=== PATIENT | female | born 1930 | race Caucasian/White ===

== ENCOUNTER 2016-05-29 15:32 | Emergency (ER) | payer MEDICARE ==
[~2016-05-29] VITALS: Ht 157.5 cm; Wt 52.3 kg
[~2016-05-29 15:32] MED LIST: ACET325S8 PO; AMLO2.5T PO
[2016-05-29 16:10] VITALS: BP 178/89; PULSE 59; PULSE 62; RESP 16; RESP 18; TEMP 98.3; O2SAT 98; O2SAT 99
[2016-05-29] MEDS ORDERED: TETANUS/DIPHTHERIA TOXOID ADULT 0.5 ML VIAL IM ONE (16:30)
[2016-05-29] MEDS ORDERED: LIDOCAINE 1%/EPINEPHrine 1:100,000 SOLN 20 ML VIAL INFIL ONE (16:30)
--- NOTE | 2016-05-29 16:31 | PD ---
HPI Chief Complaint: laceration Time Seen by Provider: 16:20 Travel History International Travel<30 days: No Contact w/Intl Traveler<30days: No Traveled to known affect area: No History of Present Illness HPI 86-year-old female presents via EMS for evaluation of skin wounds. She reports that prior to arrival she was standing outside of her home all a window was being installed in the window fell out of the window pane and landed on her. She sustained a tissue avulsion/skin tear in the lateral left ankle as well as a superficial abrasion to the left proximal leg. These are both painful. She also has mild pain to the right knee. Symptoms are aggravated by movement or palpation. Denies any head injury. Denies any pain in the torso, head or neck. No other complaints. Last tetanus vaccination unknown. PFSH Past Medical History AAA: Yes Arthritis: Yes Asthma: Yes Blood Disorders: No Heart Rhythm Problems: Yes ("My heart skips a beat sometimes") Cancer: No Cardiovascular Problems: Yes High Cholesterol: Yes Chest Pain: No Congestive Heart Failure: No Cerebrovascular Accident: Yes (TIA) Diminished Hearing: No Endocrine: No Gastrointestinal Disorders: No Genitourinary: No Headaches: No Hypertension: Yes Immune Disorder: No Musculoskeletal: No Neurologic: No Psychiatric: No Reproductive: No Respiratory: Yes (ASTHMA) Immunizations Current: No Migraines: No Seizures: No Menopausal: Yes : 8 Para: 6 Miscarriage: 2 Past Surgical History Abdominal Surgery: Yes Appendectomy: Yes Eye Surgery: Yes (Cataracts) Gynecologic Surgery: Yes (HYSTERECTOMY) Hysterectomy: Yes Joint Replacement: Yes ((L) hip replacement) Neurologic Surgery: No Other Surgery: Yes (hysterectomy, appendectomy, left hip replacement) Social History Alcohol Use: No Tobacco Use: Yes (2-3 cigarettes/day) Substance Use: No Allergies-Medications (Allergen,Severity, Reaction): Coded Allergies: Codeine (Verified Adverse Reaction, Severe, "Makes me want to climb the g[place]", 05/29/16) Reported Meds & Prescriptions Reported Meds & Active Scripts Active Amlodipine Besylate 2.5 mg (Amlodipine Besylate) 2.5 Mg Tab 1 Tab PO DAILY Acetaminophen 325 Mg Tab 650 Mg PO Q6HR PRN Review of Systems Except as stated in HPI: all other systems reviewed are Neg Physical Exam Narrative GENERAL: Well-developed well-nourished female in no acute distress SKIN: Warm and dry. Large full-thickness laceration, U-shaped, the lateral left ankle. Tendons are visible but there is no tendon damage. There is no bleeding currently. There is a superficial abrasion to the lateral left arm. HEAD: Atraumatic. Normocephalic. EYES: Pupils equal and round. No scleral icterus. No injection or drainage. ENT: No nasal bleeding or discharge. Mucous membranes pink and moist. NECK: Trachea midline. No JVD. CARDIOVASCULAR: Regular rate and rhythm. No murmur appreciated. RESPIRATORY: No accessory muscle use. Clear to auscultation. Breath sounds equal bilaterally. GASTROINTESTINAL: Abdomen soft, non-tender, nondistended. MUSCULOSKELETAL: No obvious deformities. Skin as noted above. Mild tenderness to palpation to the left ankle, left arm and right knee. NEUROLOGICAL: Awake and alert. No obvious cranial nerve deficits. Motor grossly within normal limits. Normal speech. Data Data Last Documented VS Vital Signs Date Time Temp Pulse Resp B/P Pulse Ox O2 Delivery O2 Flow Rate FiO2 05/29/16 16:10 62 18 97 Room Air 05/29/16 16:10 98.3 178/89 Orders Ankle, Complete ([id number]) (05/29/16 ) Knee, Complete (4vws) (05/29/16 ) Humerus (Min 2vws) (05/29/16 ) Lidocai-Epi 1%-1:100,000 Inj (Xylocaine- (05/29/16 16:30) Tetanus/Diphtheria Tox Adult (Tetanus/Di (05/29/16 16:30) Cefazolin Inj (Ancef Inj) (05/29/16 18:15) MDM Medical Decision Making Medical Screen Exam Complete: Yes Emergency Medical Condition: Yes Medical Record Reviewed: Yes Differential Diagnosis Laceration, open fracture, tissue avulsion Narrative Course X-ray imaging was negative and the large laceration on the left leg was repaired with sutures. Initially attempted to approximate the wound with Steri- Strips however this was unsuccessful. The wound was closed with sutures. Ancef administered. Local wound care and Dejuan wrap were applied. The patient will be referred for outpatient follow-up with the wound care clinic. Recommended wound recheck in 2 days. She is stable for discharge. Diagnosis Primary Impression: Laceration of left leg Qualified Code: S81.812A - Laceration of left leg, initial encounter Referrals: [facility] Additional Instructions: Follow-up with the wound center in 2 days for wound recheck. Antibiotics as prescribed. Return for any emergent medical conditions. Med/Other Pt SpecificInfo: Prescription(s) given, Wound Care Scripts Cephalexin (Keflex)500 Mg Ijo448 Mg PO Q8H 5 Days Ref 0 Prov:Cristobal Pickens MD 05/29/16 Disposition: 01 DISCHARGE HOME Condition: Stable Natanael Barton May 29, 2016 16:31
--- NOTE | 2016-05-29 17:27 | RADRPT ---
EXAM DATE/TIME: 05/29/2016 16:54 [facility] COMPARISON: No previous studies available for comparison. INDICATIONS : Patient states left arm pain after window fell on her. MEDICAL HISTORY : None. SURGICAL HISTORY : None. ENCOUNTER: Initial ACUITY: 1 day PAIN SCORE: 3/10 LOCATION: Left upper arm FINDINGS: Two view examination of the left humerus demonstrates no evidence of fracture or dislocation. The bon es are osteopenic. The soft tissue structures are intact. CONCLUSION: No acute disease. Davey De La Rosa MD on May 29, 2016 at 17:26 Board Certified Radiologist. This report was verified electronically.
--- NOTE | 2016-05-29 17:27 | RADRPT ---
EXAM DATE/TIME: 05/29/2016 16:48 [facility] COMPARISON: No previous studies available for comparison. FINDINGS: Three view exam was performed of the left ankle. The bony structures are in normal alignment. No ev idence of fracture, dislocation, or soft tissue swelling. The ankle mortise is intact. No radiopaqu e foreign bodies are seen. The bones are osteopenic. CONCLUSION: No acute disease. Davey De La Rosa MD on May 29, 2016 at 17:25 Board Certified Radiologist. This report was verified electronically.
--- NOTE | 2016-05-29 17:28 | RADRPT ---
EXAM DATE/TIME: 05/29/2016 16:57 [facility] COMPARISON: No previous studies available for comparison. INDICATIONS : Patient states right knee pain after window fell on her. MEDICAL HISTORY : None. SURGICAL HISTORY : None. ENCOUNTER: Initial ACUITY: 1 day PAIN SCORE: 7/10 LOCATION: Right knee FINDINGS: Four view examination of the right knee demonstrates no evidence of fracture or dislocation. The bone s are osteopenic. There is chondrocalcinosis seen at the medial joint space. The articular surfaces a re intact. The suprapatellar soft tissues have a normal configuration. CONCLUSION: No acute abnormality is seen. Davey De La Rosa MD on May 29, 2016 at 17:26 Board Certified Radiologist. This report was verified electronically.
[2016-05-29] MEDS ORDERED: CEPH-460 PO (18:13)
== END 2016-05-29 20:31 | disposition home or self-care (01) ==
LOC: NEPB 15:32 → NEDAMB 20:31
DX: S91.012A Laceration without foreign body, left ankle, initial encounter (principal); S40.812A Abrasion of left upper arm, initial encounter; M25.561 Pain in right knee; I10 Essential (primary) hypertension; E78.00 Pure hypercholesterolemia, unspecified; Z23 Encounter for immunization; Z72.0 Tobacco use; Z86.79 Personal history of other diseases of the circulatory system; Z87.39 Personal history of other diseases of the musculoskeletal system and connective tissue; Z87.09 Personal history of other diseases of the respiratory system; W22.8XXA Striking against or struck by other objects, initial encounter
CPT/HCPCS: 12004; 73060; 73564; 73610; 90471; 90714; 96372; 99283; J0690

== ENCOUNTER 2016-06-03 18:50 | Emergency (ER) | payer MEDICARE ==
[~2016-06-03 18:50] MED LIST changes: +CEPH-460 PO
[2016-06-03 18:53] VITALS: BP 180/71; PULSE 80; RESP 16; TEMP 97.7; O2SAT 98
--- NOTE | 2016-06-03 20:59 | PD ---
HPI Chief Complaint: Wound/Suture/Staple Re-Check Time Seen by Provider: 20:56 Travel History International Travel<30 days: No Contact w/Intl Traveler<30days: No Traveled to known affect area: No History of Present Illness HPI 86-year-old white female presents to emergency department for recheck of a left lower leg laceration. She states that she had called the wound care center but was told that they would not follow her up and advised her to come to the ER. The patient has no complaints at this time. She denies any fever or chills. Pain is mild. PFSH Past Medical History AAA: Yes Arthritis: Yes Asthma: Yes Blood Disorders: No Heart Rhythm Problems: Yes ("My heart skips a beat sometimes") Cancer: No Cardiovascular Problems: Yes (HTN, AAA) High Cholesterol: Yes Chest Pain: No Congestive Heart Failure: No Cerebrovascular Accident: Yes (TIA) Diminished Hearing: No Endocrine: No Gastrointestinal Disorders: No Genitourinary: No Headaches: No Hypertension: Yes Immune Disorder: No Musculoskeletal: No Neurologic: No Psychiatric: No Reproductive: No Respiratory: Yes (ASTHMA) Immunizations Current: No Migraines: No Seizures: No Menopausal: Yes : 8 Para: 6 Miscarriage: 2 Past Surgical History Abdominal Surgery: Yes Appendectomy: Yes Eye Surgery: Yes (Cataracts) Gynecologic Surgery: Yes (HYSTERECTOMY) Hysterectomy: Yes (FULL) Joint Replacement: Yes ((L) hip replacement) Neurologic Surgery: No Other Surgery: Yes (hysterectomy, appendectomy, left hip replacement) Social History Alcohol Use: No Tobacco Use: Yes (2-3 cigarettes/day) Substance Use: No Allergies-Medications (Allergen,Severity, Reaction): Coded Allergies: Codeine (Verified Adverse Reaction, Severe, "Makes me want to climb the [place]", 06/03/16) Reported Meds & Prescriptions Reported Meds & Active Scripts Active Keflex (Cephalexin) 500 Mg Cap 500 Mg PO Q8H 5 Days Amlodipine Besylate 2.5 mg (Amlodipine Besylate) 2.5 Mg Tab 1 Tab PO DAILY Tylenol (Acetaminophen) 325 Mg Tab 650 Mg PO Q6HR PRN Review of Systems Except as stated in HPI: all other systems reviewed are Neg Physical Exam Narrative GENERAL: This is a well-nourished, well-developed patient, in no apparent distress. SKIN: No rashes, ecchymoses or lesions. Warm and dry. HEAD: Atraumatic. Normocephalic. EYES: PERRL, EOMI, no discharge or injection. No scleral icterus. EARS: Clear NOSE: Nasal turbinates appear normal. THROAT: Mucosa pink and moist. Airway patent. NECK: Trachea midline. supple, moves head freely. LUNGS: Clear to auscultation. CV: Regular in rhythm. ABDOMEN: Soft nontender. EXT: No clubbing cyanosis or edema. Patient has a large U-shaped laceration to the left lower leg. There is a large amount of hematoma and serous fluid underneath the flap. The flap is not adherent to the skin. The flap appears dusky. A large amount of serosanguineous fluid is expressed from out underneath the flap. A mild pressure dressing is applied to the wound. No signs of any infection at this time. Data Data Last Documented VS Vital Signs Date Time Temp Pulse Resp B/P Pulse Ox O2 Delivery O2 Flow Rate FiO2 06/03/16 18:53 97.7 80 16 180/71 98 Room Air MDM Medical Decision Making Medical Screen Exam Complete: Yes Emergency Medical Condition: Yes Medical Record Reviewed: Yes Differential Diagnosis MDM: High Differential diagnoses: Fracture, sprain, strain, dislocation, contusion, neurovascular injury Narrative Course I am concerned that the patient's flap laceration is at high risk for necrosis. It is dusky and is had a large amount of hematoma and serous fluid underneath the flap. It has been expressed and a mild pressure dressing has been applied. The patient should have the wound rechecked again in the next 3-4 days. Diagnosis Primary Impression: Laceration of left leg Qualified Code: S81.812D - Laceration of left leg, subsequent encounter Patient Instructions: General Instructions Additional Instructions: Rest. Elevation. Keep clean and dry. May remove the dressing in 2 days and wash with soap and water and reapply dressing again. Recheck in the ER in the next 3-4 days. Med/Other Pt SpecificInfo: No Change to Meds Disposition: 01 DISCHARGE HOME Condition: Stable Chepe Pa Jun 03, 2016 20:59
== END 2016-06-03 21:32 | disposition home or self-care (01) ==
LOC: NEPB 18:50
DX: S81.812A Laceration without foreign body, left lower leg, initial encounter (principal); I10 Essential (primary) hypertension; E78.00 Pure hypercholesterolemia, unspecified; Z86.73 Personal history of transient ischemic attack (TIA), and cerebral infarction without residual deficits; Z96.642 Presence of left artificial hip joint; Z72.0 Tobacco use
CPT/HCPCS: 99282

== ENCOUNTER 2016-06-08 11:28 | Emergency (ER) | payer MEDICARE ==
[~2016-06-08] VITALS: Ht 157.5 cm; Wt 50.0 kg
[2016-06-08 11:40] VITALS: BP 134/64; PULSE 72; RESP 20; TEMP 97.9; O2SAT 98
--- NOTE | 2016-06-08 14:16 | PD ---
HPI Chief Complaint: Wound/Suture/Staple Re-Check Time Seen by Provider: 12:08 Travel History International Travel<30 days: No Contact w/Intl Traveler<30days: No Traveled to known affect area: No History of Present Illness HPI This patient was back to the ER for a recheck of her right lower leg wound. She was seen here 5 days ago and advised to come back for a wound check according to the documentation. She denies active drainage or fever. She is planning on following up with wound care but they couldn't get her in a timely fashion so she came here instead. No acute injury. PFSH Past Medical History AAA: Yes Arthritis: Yes Asthma: Yes Blood Disorders: No Heart Rhythm Problems: Yes ("My heart skips a beat sometimes") Cancer: No Cardiovascular Problems: Yes (HTN, AAA) High Cholesterol: Yes Chest Pain: No Congestive Heart Failure: No Cerebrovascular Accident: Yes (TIA) Diminished Hearing: No Endocrine: No Gastrointestinal Disorders: No Genitourinary: No Headaches: No Hypertension: Yes Immune Disorder: No Musculoskeletal: No Neurologic: No Psychiatric: No Reproductive: No Respiratory: Yes (ASTHMA) Immunizations Current: No Migraines: No Seizures: No Tetanus Vaccination: < 5 Years ?: Not Menopausal: Yes : 8 Para: 6 Miscarriage: 2 Past Surgical History Abdominal Surgery: Yes Appendectomy: Yes Eye Surgery: Yes (Cataracts) Gynecologic Surgery: Yes (HYSTERECTOMY) Hysterectomy: Yes (FULL) Joint Replacement: Yes ((L) hip replacement) Neurologic Surgery: No Other Surgery: Yes (hysterectomy, appendectomy, left hip replacement) Social History Alcohol Use: No Tobacco Use: Yes (2-3 cigarettes/day) Substance Use: No Allergies-Medications (Allergen,Severity, Reaction): Coded Allergies: Codeine (Verified Adverse Reaction, Severe, "Makes me want to climb the [place]", 06/08/16) Reported Meds & Prescriptions Reported Meds & Active Scripts Active Keflex (Cephalexin) 500 Mg Cap 500 Mg PO Q8H 5 Days Amlodipine Besylate 2.5 mg (Amlodipine Besylate) 2.5 Mg Tab 1 Tab PO DAILY Tylenol (Acetaminophen) 325 Mg Tab 650 Mg PO Q6HR PRN Review of Systems General / Constitutional: No: Fever HENT: No: Headaches Cardiovascular: No: Chest Pain or Discomfort, Palpitations Physical Exam Narrative Psych: Normal mood and affect. Normal insight and judgment. SKIN: Inspection shows no rash or ulcers. Palpation shows no induration or nodules. Left lower leg: She has a horseshoe shaped laceration repair on the lateral aspect of the left lower leg. There is no dehiscence. However there is a dusky appearance to the lateral edge of the wound. Previous physician had voiced concern about the flap not getting proper blood supply and I believe that is a significant risk. I did review with the patient. It will take time to determine whether this will heal or it will become necrotic and slough off. No sign of active infection. There is some clear serous fluid under the flap that I expressed. It does not look purulent. Data Data Last Documented VS Vital Signs Date Time Temp Pulse Resp B/P Pulse Ox O2 Delivery O2 Flow Rate FiO2 06/08/16 11:40 97.9 72 20 134/64 98 Room Air MDM Medical Decision Making Medical Screen Exam Complete: Yes Emergency Medical Condition: Yes Medical Record Reviewed: Yes Differential Diagnosis Wound recheck, laceration, contusion Narrative Course I have reviewed the patient's electronic medical record. Reviewed June 03, 2016 visit At this point the patient should follow-up with wound care. The flap may become necrotic and slough off but there is no active sign of dehiscence or infection at this time. She just completed antibiotics. Diagnosis Primary Impression: Encounter for wound re-check Disposition: DISCHARGE HOME Condition: Stable Jason Nuñez MD Jun 08, 2016 14:16
[2016-06-08 17:18] VITALS: BP 113/70; PULSE 78; RESP 18; O2SAT 97
== END 2016-06-08 20:25 | disposition home or self-care (01) ==
LOC: NEPE 11:28
DX: S81.811D Laceration without foreign body, right lower leg, subsequent encounter (principal); X58.XXXD Exposure to other specified factors, subsequent encounter
CPT/HCPCS: 99281

== ENCOUNTER 2016-06-22 13:22 | Emergency (ER) | payer MEDICARE ==
[~2016-06-22] VITALS: Ht 157.5 cm; Wt 52.8 kg
[2016-06-22 13:28] VITALS: BP 135/83; PULSE 67; RESP 16; TEMP 97.9; O2SAT 99
[2016-06-22] MEDS ORDERED: CEPH-460 PO (13:41)
[2016-06-22] MEDS ORDERED: MUPI2OIN TOPICAL (13:41)
--- NOTE | 2016-06-22 13:50 | PD ---
HPI Chief Complaint: Wound/Suture/Staple Re-Check Time Seen by Provider: 13:44 Travel History International Travel<30 days: No Contact w/Intl Traveler<30days: No Traveled to known affect area: No History of Present Illness HPI 86-year-old female that presents to the ED for evaluation of suture removal. Patient states that she had sutures placed in May 29. Patient was seen twice since secondary to hematoma as well as wound dehiscence. Patient has been compliant with Antibiotics given to her initial day. She states that she's been doing wound care questionable compliance with this as she does state that she has a dressing in the wound that has been there for 3 days. She has not been able to follow with a unattended ground sensor specialist secondary to that not been able to see her for insurance issues. She has not seen her primary care doctor for this. She denies any other medical problems. Per patient she has some pain in the area which is 3 out of 10 but more with touch. She is able to ambulate. She denies any history of diabetes or immunosuppression. No other complaints reported. PFSH Past Medical History AAA: Yes Arthritis: Yes Asthma: Yes Blood Disorders: No Heart Rhythm Problems: Yes ("My heart skips a beat sometimes") Cancer: No Cardiovascular Problems: Yes (HTN, AAA) High Cholesterol: Yes Chest Pain: No Congestive Heart Failure: No Cerebrovascular Accident: Yes (TIA) Diminished Hearing: No Endocrine: No Gastrointestinal Disorders: No Genitourinary: No Headaches: No Hypertension: Yes Immune Disorder: No Musculoskeletal: No Neurologic: No Psychiatric: No Reproductive: No Respiratory: Yes (ASTHMA) Immunizations Current: No Migraines: No Seizures: No ?: Not Menopausal: Yes : 8 Para: 6 Miscarriage: 2 Past Surgical History Abdominal Surgery: Yes Appendectomy: Yes Eye Surgery: Yes (Cataracts) Gynecologic Surgery: Yes (HYSTERECTOMY) Hysterectomy: Yes (FULL) Joint Replacement: Yes ((L) hip replacement) Neurologic Surgery: No Other Surgery: Yes (hysterectomy, appendectomy, left hip replacement) Social History Alcohol Use: No Tobacco Use: Yes (2-3 cigarettes/day) Substance Use: No Allergies-Medications (Allergen,Severity, Reaction): Coded Allergies: Codeine (Verified Adverse Reaction, Severe, "Makes me want to climb the [place]", 06/22/16) Reported Meds & Prescriptions Reported Meds & Active Scripts Active No Active Prescriptions or Reported Medications Review of Systems Except as stated in HPI: all other systems reviewed are Neg Physical Exam Narrative GENERAL: SKIN: Warm and dry. HEAD: Atraumatic. Normocephalic. EYES: Pupils equal and round. No scleral icterus. No injection or drainage. ENT: No nasal bleeding or discharge. Mucous membranes pink and moist. NECK: Trachea midline. No JVD. CARDIOVASCULAR: Regular rate and rhythm. RESPIRATORY: No accessory muscle use. Clear to auscultation. Breath sounds equal bilaterally. GASTROINTESTINAL: Abdomen soft, non-tender, nondistended. Hepatic and splenic margins not palpable. MUSCULOSKELETAL: Extremities without clubbing, cyanosis, or edema. No obvious deformities. Full range of motion of the entire left lower extremity. 2+ pulses bilaterally. Patient does have a U-shaped healing wound on the anterior aspect of the left lower leg. Some erythema noted around the edges but appears to be inflammatory and not infectious. Not warm to touch. Patient has [address] but no sign of purulence or mass. Some necrosis of the skin appears to be noted as well. NEUROLOGICAL: Awake and alert. No obvious cranial nerve deficits. Motor grossly within normal limits. Five out of 5 muscle strength in the arms and legs. Normal speech. PSYCHIATRIC: Appropriate mood and affect; insight and judgment normal. Data Data Last Documented VS Vital Signs Date Time Temp Pulse Resp B/P Pulse Ox O2 Delivery O2 Flow Rate FiO2 06/22/16 13:28 97.9 67 16 135/83 99 Orders Wound Care (06/22/16 13:40) [facility] Medical Decision Making Medical Screen Exam Complete: Yes Emergency Medical Condition: Yes Medical Record Reviewed: Yes Differential Diagnosis Wound care versus wound dehiscence versus wound infection versus laceration versus suture removal Narrative Course 86-year-old female that presents to the ED for evaluation of suture removal. Patient was properly examined and was found to have signs and symptoms consistent with appears to be suture removal. After splint proceeded to the patient she agreed to it and using sterile suture removal kit old 15 sutures were removed by me with minimal discomfort for the patient. Area was washed with sterile saline and antibiotic ointment as well as sterile dressing reapplied. Patient was instructed to wound care once a day. She does have an area of erythema around the borders with this appears to be more likely secondary to the aforementioned than actual infection but she does have a significant wound. At this time and do recommend treating with antibiotics including Keflex and appears and cream. I consult the patient that she needs to follow up with unattended ground sensor specialist or at least follow with PCP to set up wound care at her house. She is in agreement with this. She understands reasons to come back. Follow with PCP. See ED worsening symptoms. Diagnosis Primary Impression: Visit for suture removal Referrals: [facility] Patient Instructions: General Instructions Additional Instructions: Chest dressings once a day. Apply warm compresses. Follow up closely with office specialist or PCP. See ED for worsening symptoms. Take Medications as prescribed. Med/Other Pt SpecificInfo: Prescription(s) given Scripts No Active Prescriptions or Reported Meds Disposition: 01 DISCHARGE HOME Condition: Stable Bar Gaffney Jun 22, 2016 13:49
== END 2016-06-22 14:11 | disposition home or self-care (01) ==
LOC: PHED 13:22 → PHEFT 14:11
DX: Z48.02 Encounter for removal of sutures (principal); M19.90 Unspecified osteoarthritis, unspecified site; J45.909 Unspecified asthma, uncomplicated; E78.00 Pure hypercholesterolemia, unspecified; I10 Essential (primary) hypertension; F17.210 Nicotine dependence, cigarettes, uncomplicated
CPT/HCPCS: 99281

== ENCOUNTER 2016-07-31 20:13 | Observation (INO) | payer MEDICARE, OTHER ==
[~2016-07-31] VITALS: Ht 157.5 cm; Wt 57.2 kg
[2016-07-31 20:16] VITALS: BP 155/98; PULSE 79; RESP 18; TEMP 98.9; O2SAT 100
--- NOTE | 2016-07-31 20:59 | PD ---
HPI Chief Complaint: Injury Time Seen by Provider: 20:37 Travel History International Travel<30 days: No Contact w/Intl Traveler<30days: No Traveled to known affect area: No History of Present Illness HPI 86-year-old female complains of pain and swelling and redness left ankle. Patient had the laceration to left ankle May 29 secondary to a window fell on the left ankle. Patient was seen in emergency room and had suture repair of the laceration. Patient was given Ancef IV and prescription for Keflex for 5 days. Patient took medication as directed. X-ray was done and negative for acute bony injury or foreign body. Patient was seen 2 times subsequently for wound care and suture removal since then. Patient continued to have healing wound to left ankle without evidence of infection. Patient started having increasing pain swelling redness from the wound since yesterday. Patient states that she had low-grade fever at home. Patient denies any headache. Patient denies any chest pain or shortness of breath. Patient denies abdominal pain. Patient denies any nausea vomiting and diarrhea. Patient denies any medical problem. Patient is not on any routine medication. PFSH Past Medical History AAA: Yes Arthritis: Yes Asthma: Yes Blood Disorders: No Heart Rhythm Problems: Yes ("My heart skips a beat sometimes") Cancer: No Cardiovascular Problems: Yes (HTN, AAA) High Cholesterol: Yes Chest Pain: No Congestive Heart Failure: No Cerebrovascular Accident: Yes Diminished Hearing: No Endocrine: No Gastrointestinal Disorders: No Genitourinary: No Headaches: No Hypertension: Yes Immune Disorder: No Musculoskeletal: No Neurologic: No Psychiatric: No Reproductive: No Respiratory: Yes (ASTHMA) Immunizations Current: No Migraines: No Seizures: No ?: Not Menopausal: Yes : 8 Para: 6 Miscarriage: 2 Past Surgical History Abdominal Surgery: Yes Appendectomy: Yes Eye Surgery: Yes (Cataracts) Gynecologic Surgery: Yes (HYSTERECTOMY) Hysterectomy: Yes (FULL) Joint Replacement: Yes ((L) hip replacement) Neurologic Surgery: No Other Surgery: Yes (hysterectomy, appendectomy, left hip replacement) Social History Alcohol Use: No Tobacco Use: Yes (2-3 cigarettes/day) Substance Use: No Allergies-Medications (Allergen,Severity, Reaction): Coded Allergies: Codeine (Verified Adverse Reaction, Severe, "Makes me want to climb the g[place]", 07/31/16) Reported Meds & Prescriptions Reported Meds & Active Scripts Active No Active Prescriptions or Reported Medications Review of Systems General / Constitutional: No: Fever Eyes: No: Visual changes HENT: No: Headaches Cardiovascular: No: Chest Pain or Discomfort Respiratory: No: Shortness of Breath Gastrointestinal: No: Abdominal Pain Genitourinary: No: Dysuria Musculoskeletal: No: Pain Skin: No Rash Neurologic: No: Weakness Psychiatric: No: Depression Endocrine: No: Polydipsia Hematologic/Lymphatic: No: Easy Bruising Physical Exam Narrative GENERAL: Well-nourished, well-developed patient. SKIN: Focused skin assessment warm/dry. HEAD: Normocephalic. EYES: No scleral icterus. No injection or drainage. NECK: Supple, trachea midline. No JVD or lymphadenopathy. CARDIOVASCULAR: Regular rate and rhythm without murmurs, gallops, or rubs. RESPIRATORY: Breath sounds equal bilaterally. No accessory muscle use. GASTROINTESTINAL: Abdomen soft, non-tender, nondistended. MUSCULOSKELETAL: No cyanosis, or edema. BACK: Nontender without obvious deformity. No CVA tenderness. Patient has a large eschar covering the wound on the left low leg left ankle area above the lateral malleolus. Redness swelling tenderness on palpation. Mild increasing heat noted. Patient has mild edema dorsal aspect of the left foot. Good DP pulse. Data Data Last Documented VS Vital Signs Date Time Temp Pulse Resp B/P Pulse Ox O2 Delivery O2 Flow Rate FiO2 07/31/16 21:51 74 20 190/94 98 Room Air 07/31/16 20:16 98.9 Orders Complete Blood Count With Diff (07/31/16 20:52) Comprehensive Metabolic Panel (07/31/16 20:52) Urinalysis - C+S If Indicated (07/31/16 20:52) Iv Access Insert/Monitor (07/31/16 20:52) Ecg Monitoring (07/31/16 20:52) Oximetry (07/31/16 20:52) Sodium Chlor 0.9% 1000 Ml Inj (Ns 1000 M (07/31/16 21:00) Ankle, Complete ([id number]) (07/31/16 20:54) Vancomycin Inj (Vancomycin Inj) (07/31/16 21:00) Labs Laboratory Tests Test 07/31/16 21:35 White Blood Count 5.9 TH/MM3 Red Blood Count 3.92 MIL/MM3 Hemoglobin 12.2 GM/DL Hematocrit 35.7 % Mean Corpuscular Volume 91.1 FL Mean Corpuscular Hemoglobin 31.1 PG Mean Corpuscular Hemoglobin 34.1 % Concent Red Cell Distribution Width 13.6 % Platelet Count 135 TH/MM3 Mean Platelet Volume 7.9 FL Neutrophils (%) (Auto) 65.0 % Lymphocytes (%) (Auto) 22.4 % Monocytes (%) (Auto) 8.7 % Eosinophils (%) (Auto) 3.1 % Basophils (%) (Auto) 0.8 % Neutrophils # (Auto) 3.9 TH/MM3 Lymphocytes # (Auto) 1.3 TH/MM3 Monocytes # (Auto) 0.5 TH/MM3 Eosinophils # (Auto) 0.2 TH/MM3 Basophils # (Auto) 0.0 TH/MM3 CBC Comment DIFF FINAL Differential Comment Sodium Level 142 MEQ/L Potassium Level 4.3 MEQ/L Chloride Level 106 MEQ/L Carbon Dioxide Level 30.9 MEQ/L Anion Gap 5 MEQ/L Blood Urea Nitrogen 18 MG/DL Random Glucose 97 MG/DL Calcium Level 8.6 MG/DL Albumin 2.8 GM/DL MDM Medical Decision Making Medical Screen Exam Complete: Yes Emergency Medical Condition: Yes Interpretation(s) Last Impressions Ankle X-Ray 07/31/162053 Signed Impressions: Service Date/Time: Sunday, July 31, 2016 21:14 - CONCLUSION: 1. No plain film findings of osteomyelitis. If there is necessity for further evaluation contrast-enhanced MRI is recommended. Rishi Arellano MD 21:58 PM. CBC within normal limit. Differential Diagnosis Differential diagnosis including cellulitis, abscess, osteomyelitis, nonhealing wound. Narrative Course 86-year-old female with increasing redness swelling tenderness lateral left lower leg wound. Normal saline solution 70 cc an hour. Vancomycin 1 g IV given. Diagnosis Primary Impression: Left leg cellulitis Admitting Information Admitting Physician Requests: Admit Scripts No Active Prescriptions or Reported Meds Mraco Alonzo MD July 31, 2016 20:59
[2016-07-31] MEDS ORDERED: SODIUM CHLOR 0.9% 1000 ML INJ 1,000 ML IV SCH (21:00)
[2016-07-31] MEDS ORDERED: VANCOMYCIN INJ 1,000 MG in SODIUM CHLOR 0.9% 250 ML INJ 250 ML IV ONE (21:00)
[2016-07-31 21:44] LABS: AUTOMATED NEUTROPHIL # 3.9 TH/MM3 (1.8-7.7); BASOPHIL % 0.8 % (0.0-2.0); EOSINOPHIL # 0.2 TH/MM3 (0-0.4); EOSINOPHIL % 3.1 % (0.0-4.0); HEMATOCRIT 35.7 % (35.0-46.0); HEMO FLAGS DIFF FINAL; LYMPH % 22.4 % (9.0-44.0); LYMPHOCYTE # 1.3 TH/MM3 (1.0-4.8); MEAN CELL VOLUME 91.1 FL (80.0-100.0); MEAN CORPUSCULAR HEMOGLOBIN 31.1 PG (27.0-34.0); MEAN CORPUSCULAR HGB CONC 34.1 % (32.0-36.0); MONO % 8.7 % (0.0-8.0); PLATELET COUNT 135 TH/MM3 (150-450); RED BLOOD COUNT 3.92 MIL/MM3 (4.00-5.30); RED CELL DISTRIBUTION WIDTH 13.6 % (11.6-17.2); WHITE BLOOD COUNT 5.9 TH/MM3 (4.0-11.0)
[2016-07-31 21:49] VITALS: BP 190/94; PULSE 73; RESP 20; O2SAT 98
[2016-07-31 21:51] VITALS: BP_SYST 10; BP_SYST 190; BP_DIAS 94; PULSE 74; RESP 20; O2SAT 98
--- NOTE | 2016-07-31 21:51 | RADHPO ---
EXAM DATE/TIME: 07/31/2016 21:14 [facility] COMPARISON: ANKLE LEFT COMPLETE ([id number]), May 29, 2016, 16:48. INDICATIONS : Open wound on anterior surface of left ankle for 2 months MEDICAL HISTORY : None. SURGICAL HISTORY : None. ENCOUNTER: Initial ACUITY: 2 months PAIN SCORE: 5/10 LOCATION: Left anterior ankle FINDINGS: Diffuse swelling is present. There is no bony destruction or periosteal reaction to suggest osteomyel itis. Osseous structures are osteopenic. There is no evidence of acute fracture. CONCLUSION: 1. No plain film findings of osteomyelitis. If there is necessity for further evaluation contrast-enh anced MRI is recommended. Rishi Arellano MD on July 31, 2016 at 21:49 Board Certified Radiologist. This report was verified electronically.
[2016-07-31 21:53] LABS: CHLORIDE 106 MEQ/L (98-107); POTASSIUM 4.3 MEQ/L (3.5-5.1); SODIUM (NA) 142 MEQ/L (136-145)
[2016-07-31 21:56] LABS: ANION GAP 5 MEQ/L (5-15); BICARBONATE 30.9 MEQ/L (21.0-32.0)
[2016-07-31 21:57] LABS: BLOOD UREA NITROGEN 18 MG/DL (7-18)
[2016-07-31 21:59] LABS: ALT (GPT) 45 U/L (10-53)
[2016-07-31 22:00] LABS: AST (GOT) 46 U/L (15-37); GLOMERULAR FILTRATION RATE 47 ML/MIN (>89)
[2016-07-31 22:01] LABS: TOTAL BILIRUBIN ADULT 0.3 MG/DL (0.2-1.0)
[2016-07-31 22:02] LABS: ALKALINE PHOSPHATASE 91 U/L (45-117)
[2016-07-31] MEDS ORDERED: NALOXONE HCL 0.4 MG/ML AMP IV PRN (22:45)
[2016-07-31] MEDS ORDERED: SODIUM CHLORIDE 0.9% FLUSH 10 ML FLUSH IV FLUSH PRN (22:45)
[2016-07-31 22:59] VITALS: BP 167/79; PULSE 67; RESP 18; O2SAT 98
[2016-08-01] VITALS (9 sets, daily range): BP systolic 147–197; BP diastolic 75–87; PULSE 59–69; RESP 18–20; TEMP 96.6–98.4; O2SAT 93–98
[2016-08-01 00:23] LABS: BLOOD, URINE NEG (NEG); GLUCOSE,URINE NEG (NEG); KETONE, URINE NEG (NEG); NITRITE,URINE NEG (NEG)
[2016-08-01 00:31] LABS: URINE COLOR YELLOW (YELLW/STRAW)
[2016-08-01 00:32] LABS: BACTERIA, URINE OCC /hpf; COMMENT (UR) CULT NOT INDICATED; CULTURE IF INDICATED CULT NOT INDICATED; RBC, URINE 0-3 /hpf (0-3)
--- NOTE | 2016-08-01 07:55 | HHI.HP ---
[facility] Service [facility] Primary Care Physician No Primary Care Physician Admission Diagnosis left leg cellulitis Diagnoses: Chief Complaint: left leg oain , redness Travel History International Travel<30 Days: No Contact w/Intl Traveler <30 Da: No Traveled to Known Affected Are: No History of Present Illness 86-year-old female with PMH of AAA with repair, HTN, HLD, complains of pain and swelling and redness left ankle worsening. for the past days. Says she has been treated with antibiotics as OP. Patient had the laceration to left ankle May 29 secondary to a window fell on the left ankle. Patient was seen in emergency room and had suture repair of the laceration. Patient was given Ancef IV and prescription for Keflex for 5 days. Patient took medication as directed. X-ray was done and negative for acute bony injury or foreign body. Patient was seen 2 times subsequently for wound care and suture removal since then. Patient continued to have healing wound to left ankle without evidence of infection. Patient started having increasing pain swelling redness from the wound since yesterday. Patient states that she had low-grade fever at home. Patient denies any headache. Patient denies any chest pain or shortness of breath. Patient denies abdominal pain. Patient denies any nausea, vomiting or diarrhea. Patient denies any medical problems at this time. Patient is not on any routine medication, says she had her AAA repaired last year and is doing much better. Says she quit smoking 1 month ago. Review of Systems Except as stated in HPI: all other systems reviewed are Neg Past Family Social History Past Medical History History of TIA History of chronic tobacco abuse AAA with repair in August 2015 Dysphagia Arthritis HLD Hypertension Past Surgical History Hysterectomy Appendectomy Left hip replacement Reported Medications Reported Meds & Active Scripts Active No Active Prescriptions or Reported Medications Allergies: Coded Allergies: Codeine (Verified Adverse Reaction, Severe, "Makes me want to climb the gilmore", 07/31/16) Family History Sister had PR at the age of 90 , otherwise says healthy family Social History Used to smoke cigarettes, quit a few months ago. Denies any alcohol abuse or drug abuse. Physical Exam Vital Signs Vital Signs Date Time Temp Pulse Resp B/P Pulse Ox O2 Delivery O2 Flow Rate FiO2 08/01/16 04:00 97.8 63 18 197/87 97 08/01/16 01:00 66 08/01/16 00:12 69 18 186/82 98 Room Air 08/01/16 00:00 98.3 69 20 180/85 93 07/31/16 22:59 67 18 167/79 98 Room Air 07/31/16 21:51 74 20 190/94 98 Room Air 07/31/16 21:49 73 20 190/94 98 Room Air 07/31/16 21:00 65 20 98 Room Air 07/31/16 20:16 98.9 79 18 155/98 100 Physical Exam GENERAL: This is a frail 86 yo female, well-nourished, well-developed patient, in no apparent distress. SKIN: Left leg with erythema and edema up to calf painful to palpation, warm to touch. Patient has a large eschar covering the wound on the left low leg left ankle area above the lateral malleolus. Patient has mild edema dorsal aspect of the left foot. Good DP pulse. HEAD: Atraumatic. Normocephalic. No temporal or scalp tenderness. EYES: Pupils equal round and reactive. Extraocular motions intact. No scleral icterus. No injection or drainage. ENT: Nose without bleeding, purulent drainage or septal hematoma. Throat without erythema, tonsillar hypertrophy or exudate. Uvula midline. Airway patent. NECK: Trachea midline. No JVD or lymphadenopathy. Supple, nontender, no meningeal signs. CARDIOVASCULAR: Regular rate and rhythm without murmurs, gallops, or rubs. RESPIRATORY: Clear to auscultation. Breath sounds equal bilaterally. No wheezes , rales, or rhonchi. GASTROINTESTINAL: Abdomen soft, non-tender, nondistended. No hepato-splenomegaly , or palpable masses. No guarding. MUSCULOSKELETAL: Extremities without clubbing, cyanosis, or edema. No joint tenderness, effusion, or edema noted. No calf tenderness. Negative Homans sign bilaterally. NEUROLOGICAL: Awake and alert. Cranial nerves II through XII intact. Motor and sensory grossly within normal limits. Five out of 5 muscle strength in all muscle groups. Normal speech. Laboratory Laboratory Tests Test 07/31/16 08/01/16 21:35 00:00 White Blood Count 5.9 Red Blood Count 3.92 Hemoglobin 12.2 Hematocrit 35.7 Mean Corpuscular Volume 91.1 Mean Corpuscular Hemoglobin 31.1 Mean Corpuscular Hemoglobin 34.1 Concent Red Cell Distribution Width 13.6 Platelet Count 135 Mean Platelet Volume 7.9 Neutrophils (%) (Auto) 65.0 Lymphocytes (%) (Auto) 22.4 Monocytes (%) (Auto) 8.7 Eosinophils (%) (Auto) 3.1 Basophils (%) (Auto) 0.8 Neutrophils # (Auto) 3.9 Lymphocytes # (Auto) 1.3 Monocytes # (Auto) 0.5 Eosinophils # (Auto) 0.2 Basophils # (Auto) 0.0 CBC Comment DIFF FINAL Differential Comment Sodium Level 142 Potassium Level 4.3 Chloride Level 106 Carbon Dioxide Level 30.9 Anion Gap 5 Blood Urea Nitrogen 18 Creatinine 1.10 Estimat Glomerular Filtration 47 Rate Random Glucose 97 Calcium Level 8.6 Total Bilirubin 0.3 Aspartate Amino Transf 46 (AST/SGOT) Alanine Aminotransferase 45 (ALT/SGPT) Alkaline Phosphatase 91 Total Protein 7.3 Albumin 2.8 Urine Color YELLOW Urine Turbidity CLEAR Urine pH 7.0 Urine Specific Ideal 1.017 Urine Protein TRACE Urine Glucose (UA) NEG Urine Ketones NEG Urine Occult Blood NEG Urine Nitrite NEG Urine Bilirubin NEG Urine Leukocyte Esterase TRACE Urine RBC 0-3 Urine WBC 6-8 Urine Squamous Epithelial 6-8 Cells Urine Bacteria OCC Microscopic Urinalysis Comment CULT NOT INDICATED Result Diagram: 07/31/16213407/31/162134 Imaging Last Impressions Ankle X-Ray 07/31/162053 Signed Impressions: Service Date/Time: Sunday, July 31, 2016 21:14 - CONCLUSION: 1. No plain film findings of osteomyelitis. If there is necessity for further evaluation contrast-enhanced MRI is recommended. Rishi Arellano MD Assessment and Plan Assessment and Plan 86 yo F with Left leg cellulitis, failed treatment as OP Blood cultures pending Start vancomycin IV Consult podiatry and wound nurse On IVF Pain meds per pain scale. Laxatives/stool softeners as need. ELI. Mild. Avoid nephrotoxins. On IVF. Monitor kidney indices HTN: Start norvasc. Hydralazine PRN History of chronic tobacco abuse quit 1 month ago , h/o AAA with repair in August 2015. Stable at this time. DVT ppx lovenox Code Status full code Discussed Condition With patient, nurse Physician Certification 2 Midnight Certification Type: Admission for Inpatient Services Order for Inpatient Services The services are ordered in accordance with Medicare regulations or non- Medicare payer requirements, as applicable. In the case of services not specified as inpatient-only, they are appropriately provided as inpatient services in accordance with the 2-midnight benchmark. Estimated LOS (days): 3 days is the estimated time the patient will need to remain in the hospital, assuming treatment plan goals are met and no additional complications. Post-Hospital Plan: Home Vickie Holguin MD August 01, 2016 07:55
[2016-08-01] MEDS ORDERED: hydrALAZINE HCL 10 MG TAB PO PRN (10:45)
[2016-08-01] MEDS: amLODIPine BESYLATE 5 MG TAB PO SCH (15:18)
[2016-08-01] MEDS: ENOXAPARIN SODIUM 40 MG/0.4 ML SYRINGE SQ SCH (15:18)
[2016-08-01] MEDS: SODIUM CHLORIDE 0.9% FLUSH 10 ML FLUSH IV FLUSH SCH ×2 (15:18→21:00)
[2016-08-02] VITALS: BP 146/79; PULSE 72; RESP 18; TEMP 98.7; O2SAT 97
[2016-08-02 04:00] VITALS: BP 157/91; PULSE 63; RESP 18; TEMP 98.2; O2SAT 97
[2016-08-02 08:00] VITALS: BP 145/88; PULSE 67; PULSE 75; RESP 18; TEMP 97.1; O2SAT 96
[2016-08-02] MEDS: amLODIPine BESYLATE 5 MG TAB PO SCH (08:17)
--- NOTE | 2016-08-02 08:58 | MB ---
cc: ELIZABETH NATHAN DATE OF CONSULTATION 08/02/2016 CHIEF COMPLAINT Left leg ulceration HISTORY OF PRESENT ILLNESS Ms. Pride is an 86-year-old female patient who had an injury laceration to her left anterior tibia mid May. She states that it was sutured and repaired in the ER and she felt that it was healing well. She has doing her own wound care at home up until the last couple days when she noticed an increased in redness and her roommate told her it looked infected. At that time, she had some low grade subjective fevers at home and decided to come to the ER for further evaluation where she was admitted and has been treated in the hospital ever since. The patient denies any pain to the area. She also denies any history of neuropathy but clearly has some decreased sensation in the lower extremities. She states that she feels better today than yesterday. She denies any nausea, vomiting, fever, headaches or chills. PAST MEDICAL HISTORY Includes: 1. Hypertension 2. Hyperlipidemia 3. Dysphasia 4. Arthritis 5. History of a TIA. PAST SURGICAL HISTORY Includes: 1. A AAA repair in August 2015. 2. Hysterectomy 3. Appendectomy 4. A left hip replacement MEDICATIONS Please see list. ALLERGIES CODEINE FAMILY HISTORY Noncontributory SOCIAL HISTORY The patient is a life time smoker, but quit a little under one year ago. She denies any alcohol or drug abuse. She lives with a roommate and a roommate's son whom she states helped take care of her. VITAL SIGNS Temperature is 98.2 and is T max, pulse is 63, respiratory rate 18, blood pressure 157/91, pulse ox 97% O2 at room air. LABORATORY DATA White count 5.9, hemoglobin 12.2, hematocrit 35.2, platelets 135. Sodium 142, potassium 4.3, chloride 106, carbon dioxide 30.9, BUN 18. X-ray showed signs of osteopenia, but no fractures or dislocations. No erosions in the bone. No signs of gas in the soft tissue. PHYSICAL EXAM On physical exam, the patient did have decreased DP and PT pulses with cap fill time less than three seconds. Gross sensation is intact, but diminished. The right foot is unremarkable. The left foot is mildly edematous with slight erythema limited to two to three inches circumferentially around the anterior wound with the ulcer measuring 4 cm x 2.5 cm x 0 with a mixed base of fibrotic tissue and eschar. No malodor, serous drainage. ASSESSMENT/PLAN 1. Stage II ulceration with resolving cellulitis. - Twice daily wet to dry dressing, orders placed for nursing staff, I will reassess in 48 hours. If the wound appearance is improved, we will change dressing techniques. - Continue IV antibiotics while in-house - Predict an additional two to three days of IV antibiotics needed. - The patient would benefit from home health at the time of Discharge. - The patient relates multiple falls at home. A consult For physical therapy has been placed. - We will continue to monitor the patient while in-house and plan accordingly. Elizabeth GARCÍA /8:03 AM /8:50 AM NATY
--- NOTE | 2016-08-02 10:32 | HHI.PR ---
Subjective Remarks Says has less. pain .Says had chills overnight, no fevers. Says wound is wrapped well and she feesl is improving. No n/v/d/c. Eating well. Objective Vitals Vital Signs Date Time Temp Pulse Resp B/P Pulse Ox O2 Delivery O2 Flow Rate FiO2 08/02/16 04:00 98.2 63 18 157/91 97 08/02/16 00:00 98.7 72 18 146/79 97 08/01/16 20:00 98.4 59 20 151/75 98 08/01/16 20:00 61 08/01/16 16:59 97.2 60 18 157/86 93 08/01/16 12:14 96.6 67 18 147/81 98 I/O 08/01/16 08/01/16 08/01/16 08/02/16 08/02/16 08/02/16 07:00 15:00 23:00 07:00 15:00 23:00 Intake Total 478 ml 1294 ml 240 ml Balance 478 ml 1294 ml 240 ml Intake Oral 120 ml 960 ml 240 ml IV Total 358 ml 334 ml # Voids 1 4 3 # Bowel Movements 0 0 0 Result Diagram: 07/31/16213407/31/162134 Imaging Last Impressions Ankle X-Ray 07/31/162053 Signed Impressions: Service Date/Time: Sunday, July 31, 2016 21:14 - CONCLUSION: 1. No plain film findings of osteomyelitis. If there is necessity for further evaluation contrast-enhanced MRI is recommended. Rishi Arellano MD Objective Remarks GENERAL: This is a frail 86 yo female, well-nourished, well-developed patient, in no apparent distress. SKIN: Left leg with erythema and edema up to calf painful to palpation, warm to touch. Patient has a large eschar covering the wound on the left low leg left ankle area above the lateral malleolus. Patient has mild edema dorsal aspect of the left foot. Good DP pulse. HEAD: Atraumatic. Normocephalic. No temporal or scalp tenderness. EYES: Pupils equal round and reactive. Extraocular motions intact. No scleral icterus. No injection or drainage. ENT: Nose without bleeding, purulent drainage or septal hematoma. Throat without erythema, tonsillar hypertrophy or exudate. Uvula midline. Airway patent. NECK: Trachea midline. No JVD or lymphadenopathy. Supple, nontender, no meningeal signs. CARDIOVASCULAR: Regular rate and rhythm without murmurs, gallops, or rubs. RESPIRATORY: Clear to auscultation. Breath sounds equal bilaterally. No wheezes , rales, or rhonchi. GASTROINTESTINAL: Abdomen soft, non-tender, nondistended. No hepato-splenomegaly , or palpable masses. No guarding. MUSCULOSKELETAL: Extremities without clubbing, cyanosis. No joint tenderness, effusion, or edema noted. No calf tenderness. Negative Homans sign bilaterally. NEUROLOGICAL: Awake and alert. Cranial nerves II through XII intact. Motor and sensory grossly within normal limits. Five out of 5 muscle strength in all muscle groups. Normal speech. A/P Assessment and Plan 86 yo F with Left leg cellulitis, resolving Stage 2 ulceration Blood cultures pending Start vancomycin IV Consult podiatry and wound nurse Seen by Dr Malloy podiatry , appreciate recommendations. Wet to dry dressings. Predict additional 2-3 days of IV abx. On IVF Pain meds per pain scale. Laxatives/stool softeners as need. PT for eval. ELI. Mild. Avoid nephrotoxins. On IVF. Monitor kidney indices HTN: Start norvasc. Hydralazine PRN History of chronic tobacco abuse quit 1 month ago , h/o AAA with repair in August 2015. Stable at this time. DVT ppx lovenox Code Status full code Discussed Condition With patient, nurse Vickie Holguin MD August 02, 2016 10:32
[2016-08-02 12:00] VITALS: BP 140/80; PULSE 68; RESP 18; TEMP 98.2; O2SAT 97
[2016-08-02 14:28] LABS: POTASSIUM 3.9 MEQ/L (3.5-5.1)
[2016-08-02 14:31] LABS: BICARBONATE 28.7 MEQ/L (21.0-32.0); MAGNESIUM 2.3 MG/DL (1.5-2.5)
[2016-08-02] MEDS: ENOXAPARIN SODIUM 40 MG/0.4 ML SYRINGE SQ SCH (14:33)
[2016-08-02] MEDS: SODIUM CHLORIDE 0.9% FLUSH 10 ML FLUSH IV FLUSH SCH ×2 (14:33→20:48)
[2016-08-02] MEDS ORDERED: HYPROMELLOSE 0.3 % OPTH GEL 10 GM (0.34 FL OZ) TUBE EACH EYE PRN (14:45)
--- NOTE | 2016-08-02 16:40 | PD.CONS ---
HPI Service Cardiology Consult Requested By Hosp Reason for Consult ?VT Primary Care Physician No Primary Care Physician History of Present Illness 86 y/o PMH of AAA s/p repair, HTN, HLD, smoker admitted with worsening left leg pain, swelling and redness for the last couple of days in the setting of laceration/trauma/fall. Laceration was treated in the ER, got suture and d/c on PO antibiotics. Patient denies any chest pain or shortness of breath. Cardiology consulted for ?VT/arrhythmia. Review of Systems Consitutional: DENIES: Fatigue, Fever, Chills, Weight gain, Weight loss Eyes: DENIES: Amaurosis Fugax, Change in vision HEENT: DENIES: Lightheadedness, Change in hearing Respiratory: DENIES: See HPI, Cough, Snoring, Shortness of breath, Wheezing, Sputum production Cardiovascular: DENIES: See HPI, Chest pain, Palpitations, Syncope, Tachycardia Gastrointestinal: DENIES: Nausea, Vomiting, Change in bowel habits, Reflux, Bloody stools, Melena Genitourinary: DENIES: Urinary incontinence, Difficulty voiding Integumentary: DENIES: Rash Neurologic: DENIES: Tingling or numbness, Memory problems, Poor Balance, Stroke symptoms Musculoskeletal: DENIES: Joint pain, Muscle pain, Limited range of motion, Back pain Psychiatric: DENIES: Anxiety, Depression, Sleep disturbances Hematologic: DENIES: Bruising tendencies, Bleeding tendencies Endocrine: DENIES: Weight gain, Weight loss, Thyroid disease Past Family Social History Allergies: Coded Allergies: Codeine (Verified Adverse Reaction, Severe, "Makes me want to climb the gilmore", 07/31/16) Past Medical History History of TIA History of chronic tobacco abuse AAA with repair in August 2015 Dysphagia Arthritis HLD Hypertension Past Surgical History Hysterectomy Appendectomy Left hip replacement Reported Medications Reported Meds & Active Scripts Active No Active Prescriptions or Reported Medications Active Ordered Medications Current Medications Medications (Trade) Dose Ordered Sig/Gissell Route Start Time Stop Time Status Last Admin (NS Flush) 2 ml UNSCH PRN IV FLUSH 07/31/16 22:45 (NS Flush) 2 ml BID IV FLUSH 08/01/16 09:00 08/02/16 14:33 (Narcan Inj) 0.4 mg UNSCH PRN IV 07/31/16 22:45 (Lovenox Inj) 40 mg Q24H SQ 08/01/16 11:00 08/02/16 14:33 (Norvasc) 5 mg DAILY PO 08/01/16 11:00 08/02/16 08:17 (Apresoline) 10 mg Q6HR PRN PO 08/01/16 10:45 (Genteal Severe Dry Eye Relief 0.3% Opth Gel) 2 drop Q6H PRN EACH EYE 08/02/16 14:45 Family History Noncontributory Social History Smoker Physical Exam Vital Signs Vital Signs Date Time Temp Pulse Resp B/P Pulse Ox O2 Delivery O2 Flow Rate FiO2 08/02/16 12:00 98.2 68 18 140/80 97 08/02/16 08:00 97.1 67 18 145/88 96 08/02/16 08:00 75 08/02/16 04:00 98.2 63 18 157/91 97 08/02/16 00:00 98.7 72 18 146/79 97 08/01/16 20:00 98.4 59 20 151/75 98 08/01/16 20:00 61 08/01/16 16:59 97.2 60 18 157/86 93 Physical Exam GENERAL: Well-nourished, well-developed patient. SKIN: Warm and dry. HEAD: Normocephalic. EYES: No scleral icterus. No injection or drainage. NECK: Supple, trachea midline. No JVD or lymphadenopathy. CARDIOVASCULAR: Regular rate and rhythm without murmurs, gallops, or rubs. RESPIRATORY: Breath sounds equal bilaterally. No accessory muscle use. GASTROINTESTINAL: Abdomen soft, non-tender, nondistended. EXTREMITIES: No cyanosis, decrease pulses throughout Laboratory Laboratory Tests Test 08/02/16 13:49 Sodium Level 139 Potassium Level 3.9 Chloride Level 104 Carbon Dioxide Level 28.7 Anion Gap 6 Blood Urea Nitrogen 15 Creatinine 0.95 Estimat Glomerular Filtration 56 Rate Random Glucose 132 Calcium Level 8.5 Magnesium Level 2.3 Result Diagram: 07/31/16213408/02/16 1349 Imaging Last Impressions Ankle X-Ray 07/31/162053 Signed Impressions: Service Date/Time: Sunday, July 31, 2016 21:14 - CONCLUSION: 1. No plain film findings of osteomyelitis. If there is necessity for further evaluation contrast-enhanced MRI is recommended. Rishi B. Turetsky, MD Assessment and Plan Problem List: (1) Arrhythmia Assessment and Plan: No CV complaints. Episodes of sinus tachycardia. Consulted because of ?Nonsustained VT. body and frame technician review. No evidence of VT rather Artifact (QRS march thru the artifact) Recommendations: 1. Continue medical management per primary team Thank you for the opportunity to participate in the care of this patient. Sign off (2) Left leg cellulitis Bebeto Galvez MD August 02, 2016 16:40
[2016-08-02 20:00] VITALS: PULSE 71
[2016-08-02 20:56] VITALS: BP 144/79; PULSE 70; RESP 16; TEMP 98.4; O2SAT 95
[2016-08-03] VITALS (7 sets, daily range): BP systolic 125–144; BP diastolic 63–91; PULSE 63–82; RESP 16–20; TEMP 97.1–99.5; O2SAT 94–99
[2016-08-03 06:56] LABS: AUTOMATED NEUTROPHIL # 3.3 TH/MM3 (1.8-7.7); BASOPHIL % 0.7 % (0.0-2.0); EOSINOPHIL # 0.1 TH/MM3 (0-0.4); EOSINOPHIL % 2.2 % (0.0-4.0); HEMATOCRIT 34.8 % (35.0-46.0); HEMO FLAGS DIFF FINAL; LYMPH % 23.4 % (9.0-44.0); LYMPHOCYTE # 1.2 TH/MM3 (1.0-4.8); MEAN CELL VOLUME 90.6 FL (80.0-100.0); MEAN CORPUSCULAR HEMOGLOBIN 29.4 PG (27.0-34.0); MEAN CORPUSCULAR HGB CONC 32.4 % (32.0-36.0); NEUT % 62.7 % (16.0-70.0); PLATELET COUNT 158 TH/MM3 (150-450); RED BLOOD COUNT 3.85 MIL/MM3 (4.00-5.30); RED CELL DISTRIBUTION WIDTH 13.4 % (11.6-17.2); WHITE BLOOD COUNT 5.3 TH/MM3 (4.0-11.0)
[2016-08-03 07:08] LABS: BICARBONATE 27.7 MEQ/L (21.0-32.0)
[2016-08-03] MEDS: amLODIPine BESYLATE 5 MG TAB PO SCH (08:34)
[2016-08-03] MEDS: SODIUM CHLORIDE 0.9% FLUSH 10 ML FLUSH IV FLUSH SCH ×2 (08:34→20:59)
--- NOTE | 2016-08-03 08:36 | HHI.PR ---
Subjective Remarks Patient in nad. At the margin of the bed. She denies any fever or chills. No n/v /d/c. Says she is not having any chest pain , no tachycardia. Says she is having pain in both feet. Objective Vitals Vital Signs Date Time Temp Pulse Resp B/P Pulse Ox O2 Delivery O2 Flow Rate FiO2 08/03/16 08:00 98.1 70 20 125/69 94 08/03/16 04:12 97.6 69 16 144/91 95 08/03/16 00:23 98.5 78 16 133/72 99 08/02/16 20:56 98.4 70 16 144/79 95 08/02/16 20:00 71 08/02/16 12:00 98.2 68 18 140/80 97 I/O 08/02/16 08/02/16 08/02/16 08/03/16 08/03/16 08/03/16 07:00 15:00 23:00 07:00 15:00 23:00 Intake Total 240 ml 480 ml Balance 240 ml 480 ml Intake Oral 240 ml 480 ml # Voids 3 1 2 # Bowel Movements 0 Result Diagram: 08/03/1643 08/03/1643 Imaging Last Impressions Ankle X-Ray 07/31/162053 Signed Impressions: Service Date/Time: Sunday, July 31, 2016 21:14 - CONCLUSION: 1. No plain film findings of osteomyelitis. If there is necessity for further evaluation contrast-enhanced MRI is recommended. Rishi Arellano MD Objective Remarks GENERAL: This is a frail 86 yo female, well-nourished, well-developed patient, in no apparent distress. SKIN: Left leg wrapped, dressing C/D/I. Patient has a large eschar covering the wound on the left low leg left ankle area above the lateral malleolus. Patient has mild edema dorsal aspect of the left foot. Good DP pulse. HEAD: Atraumatic. Normocephalic. No temporal or scalp tenderness. EYES: Pupils equal round and reactive. Extraocular motions intact. No scleral icterus. No injection or drainage. ENT: Nose without bleeding, purulent drainage or septal hematoma. Throat without erythema, tonsillar hypertrophy or exudate. Uvula midline. Airway patent. NECK: Trachea midline. No JVD or lymphadenopathy. Supple, nontender, no meningeal signs. CARDIOVASCULAR: Regular rate and rhythm without murmurs, gallops, or rubs. RESPIRATORY: Clear to auscultation. Breath sounds equal bilaterally. No wheezes , rales, or rhonchi. GASTROINTESTINAL: Abdomen soft, non-tender, nondistended. No hepato-splenomegaly , or palpable masses. No guarding. MUSCULOSKELETAL: Left leg wrapped, dressing c/d/di. Extremities without clubbing, cyanosis. No calf tenderness. Negative Homans sign bilaterally. NEUROLOGICAL: Awake and alert. Cranial nerves II through XII intact. Motor and sensory grossly within normal limits. Five out of 5 muscle strength in all muscle groups. Normal speech. A/P Assessment and Plan 86 yo F with Left leg cellulitis, resolving Stage 2 ulceration Blood cultures NTD Continue vancomycin IV Consult podiatry and wound nurse Seen by Dr Malloy podiatry , appreciate recommendations. Wet to dry dressings. Predict additional 1-2 days of IV abx. On IVF Pain meds per pain scale. Laxatives/stool softeners as need. PT for eval. ELI. Mild. Avoid nephrotoxins. On IVF. Monitor kidney indices Noted wit tachycardia 08/02. Cardiology consulted recommends medical management. Patient is asymptomatic. HTN: Start norvasc. Hydralazine PRN History of chronic tobacco abuse quit 1 month ago , h/o AAA with repair in August 2015. Stable at this time. DVT ppx lovenox Code Status full code Discussed Condition With patient, nurse Vickie Holguin MD August 03, 2016 08:36
--- NOTE | 2016-08-03 11:08 | HHI.FF ---
Face to Face Verification Diagnosis: (1) AAA (abdominal aortic aneurysm) (2) Laceration of left leg (3) Arrhythmia (4) Left leg cellulitis Physical Therapy Order: Evaluate and Treat Home Health Nursing Order: Medical education Signs/symptoms of disease process Medication education-adverse effect Wound care and dressing changes Nursing assessment with vital signs I have seen patient [facility] on 08/03/16. My clinical findings support the need for the requested home health care services because: Ltd mobility - disease progression I certify that my clinical findings support that this patient is homebound because: Post-op weakness Vickie Holguin MD August 03, 2016 11:08
[2016-08-03] MEDS ORDERED: AMLO5 PO (11:09)
[2016-08-03] MEDS ORDERED: GETGO ROLLING W1 MI1 (11:11)
[2016-08-03] MEDS ORDERED: Vancomycin Consult Pharmacy 1 EA OTHER SCH (11:15)
[2016-08-03] MEDS: ENOXAPARIN SODIUM 40 MG/0.4 ML SYRINGE SQ SCH (11:17)
[2016-08-03] MEDS ORDERED: VANCOMYCIN INJ 1,000 MG in SODIUM CHLOR 0.9% 250 ML INJ 250 ML IV SCH (12:00)
[2016-08-03] MEDS ORDERED: diphenhydrAMINE HCL 25 MG CAP PO PRN (14:15)
[2016-08-03] MEDS ORDERED: diphenhydrAMINE HCL 50 MG/ML VIAL IVP ONE (14:30)
[2016-08-03] MEDS ORDERED: FAMOTIDINE 20 MG/2 ML VIAL IV PUSH ONE (14:30)
[2016-08-03] MEDS: CLINDAMYCIN INJ 600 MG in SODIUM CHLORIDE 0.9% INJ 100 ML IV SCH ×2 (16:08→20:59)
--- NOTE | 2016-08-03 16:16 | EKG ---
Date Performed: 08/02/2016 Time Performed: 13:57:02 PTAGE: 86 years EKG: Sinus rhythm Possible inferior infarct - age undetermined Abnormal ECG PREVIOUS TRACING : 12/12/2015 19.10 DOCTOR: Noemy Lin Interpretating Date/Time 08/03/2016 16:14:42
[2016-08-04 00:48] VITALS: BP 139/69; PULSE 68; RESP 14; TEMP 97.9; O2SAT 97
[2016-08-04] MEDS: CLINDAMYCIN INJ 600 MG in SODIUM CHLORIDE 0.9% INJ 100 ML IV SCH ×2 (02:55→09:16)
[2016-08-04 05:10] VITALS: BP 129/62; PULSE 65; RESP 18; TEMP 97.6; O2SAT 94
[2016-08-04 05:45] VITALS: PULSE 113
[2016-08-04 08:00] VITALS: BP 149/78; PULSE 64; RESP 20; TEMP 97.7; O2SAT 97
--- NOTE | 2016-08-04 08:50 | PD.POD ---
Subjective Podiatric Problems Left leg is feeling well according to the patient. She has been having the dressing changed twice daily. She has only worked with PT once, but feels much more comfortable with the walker then with her cane. She denies any n/v/f/h/c/ sob/pain. She feels ready for discharge today. Pain score: 0 Past Med/Surg/Social History Social History Smoking Status: Current Every Day Smoker Objective Vital Signs Vital Signs Date Time Temp Pulse Resp B/P Pulse Ox O2 Delivery O2 Flow Rate FiO2 08/04/16 05:10 97.6 65 18 129/62 94 08/04/16 00:48 97.9 68 14 139/69 97 08/03/16 21:18 98.3 70 16 127/74 96 08/03/16 20:10 67 08/03/16 16:00 99.5 82 20 141/78 97 08/03/16 12:00 97.1 63 20 127/63 97 Coded Allergies: Vancomycin (Verified Allergy, Intermediate, Rash, 08/03/16) welts Codeine (Verified Adverse Reaction, Severe, "Makes me want to climb the gilmore", 07/31/16) Physical Exam Remarks Left anterior tibia full thickness ulcer, 4cm x 2cm x0 cm, fibrotic base, no necrotic tissue in the wound bed, no erythema, no edema, no malodor, serous drainage Assessment & Plan A/P 1) LLE stage II ulcer with resolved cellulitis -Pt is doing well and appears ready for discharge. She was advised to make an appt with her PCP alessia as her insurance often requires referrals for specialists and C. -New dressing orders placed, these should be continued at home with [facility] (once daily- cleanse wound with sterile saline, dry well, apply thick layer of santyl , cover with gauze, secure with a light beau wrap and paper tape) -Suggest home PT as well -Suggest 7-10 days of oral abx -Follow up in 5-7 days after d/c with Elizabeth Lewis DPM August 04, 2016 08:50
[2016-08-04 08:57] LABS: BASOPHIL % 0.6 % (0.0-2.0); EOSINOPHIL # 0.2 TH/MM3 (0-0.4); EOSINOPHIL % 3.4 % (0.0-4.0); HEMATOCRIT 34.8 % (35.0-46.0); HEMO FLAGS DIFF FINAL; LYMPH % 28.6 % (9.0-44.0); LYMPHOCYTE # 1.5 TH/MM3 (1.0-4.8); MEAN CORPUSCULAR HEMOGLOBIN 30.9 PG (27.0-34.0); MEAN CORPUSCULAR HGB CONC 33.9 % (32.0-36.0); MONO % 11.3 % (0.0-8.0); NEUT % 56.1 % (16.0-70.0); PLATELET COUNT 159 TH/MM3 (150-450); RED BLOOD COUNT 3.82 MIL/MM3 (4.00-5.30); RED CELL DISTRIBUTION WIDTH 13.6 % (11.6-17.2); WHITE BLOOD COUNT 5.4 TH/MM3 (4.0-11.0)
[2016-08-04] MEDS ORDERED: COLLAGENASE OINT 30 GM TUBE TOPICAL SCH (09:00)
--- NOTE | 2016-08-04 09:00 | HHI.DS ---
Discharge Summary Admission Date July 31, 2016 at 22:33 Discharge Date: August 04, 2016 Admitting Diagnosis left leg cellulitis (1) Left leg cellulitis ICD Code: L03.116 Diagnosis: Principal (2) Laceration of left leg ICD Code: S81.812A Diagnosis: Secondary (3) AAA (abdominal aortic aneurysm) ICD Code: I71.4 Diagnosis: Secondary (4) Weakness ICD Code: R53.1 Diagnosis: Secondary (5) Arrhythmia ICD Code: I49.9 Diagnosis: Secondary (6) Hypertension ICD Code: I10 Diagnosis: Secondary Procedures none Brief History - From Admission 86-year-old female with PMH of AAA with repair, HTN, HLD, complains of pain and swelling and redness left ankle worsening. for the past days. Says she has been treated with antibiotics as OP. Patient had the laceration to left ankle May 29 secondary to a window fell on the left ankle. Patient was seen in emergency room and had suture repair of the laceration. Patient was given Ancef IV and prescription for Keflex for 5 days. Patient took medication as directed. X-ray was done and negative for acute bony injury or foreign body. Patient was seen 2 times subsequently for wound care and suture removal since then. Patient continued to have healing wound to left ankle without evidence of infection. Patient started having increasing pain swelling redness from the wound since yesterday. Patient states that she had low-grade fever at home. Patient denies any headache. Patient denies any chest pain or shortness of breath. Patient denies abdominal pain. Patient denies any nausea, vomiting or diarrhea. Patient denies any medical problems at this time. Patient is not on any routine medication, says she had her AAA repaired last year and is doing much better. Says she quit smoking 1 month ago. CBC/BMP: 08/04/16 0751 08/04/16 0751 Significant Findings Laboratory Tests Test 08/02/16 08/03/16 08/04/16 13:49 06:43 07:51 Estimat Glomerular Filtration 56 ML/MIN (>89) 63 ML/MIN (>89) Rate Random Glucose 132 MG/DL (74-106) Red Blood Count 3.85 MIL/MM3 3.82 MIL/MM3 (4.00-5.30) (4.00-5.30) Hemoglobin 11.3 GM/DL (11.6-15.3) Hematocrit 34.8 % 34.8 % (35.0-46.0) (35.0-46.0) Monocytes (%) (Auto) 11.0 % 11.3 % (0.0-8.0) (0.0-8.0) Calcium Level 8.4 MG/DL (8.5-10.1) Imaging Last Impressions Ankle X-Ray 07/31/162053 Signed Impressions: Service Date/Time: Sunday, July 31, 2016 21:14 - CONCLUSION: 1. No plain film findings of osteomyelitis. If there is necessity for further evaluation contrast-enhanced MRI is recommended. Rishi Arellano MD PE at Discharge GENERAL: This is a frail 86 yo female, well-nourished, well-developed patient, in no apparent distress. SKIN: Left leg wrapped, dressing C/D/I. Patient has a large eschar covering the wound on the left low leg left ankle area above the lateral malleolus. Patient has mild edema dorsal aspect of the left foot. Good DP pulse. HEAD: Atraumatic. Normocephalic. No temporal or scalp tenderness. EYES: Pupils equal round and reactive. Extraocular motions intact. No scleral icterus. No injection or drainage. ENT: Nose without bleeding, purulent drainage or septal hematoma. Throat without erythema, tonsillar hypertrophy or exudate. Uvula midline. Airway patent. NECK: Trachea midline. No JVD or lymphadenopathy. Supple, nontender, no meningeal signs. CARDIOVASCULAR: Regular rate and rhythm without murmurs, gallops, or rubs. RESPIRATORY: Clear to auscultation. Breath sounds equal bilaterally. No wheezes , rales, or rhonchi. GASTROINTESTINAL: Abdomen soft, non-tender, nondistended. No hepato-splenomegaly , or palpable masses. No guarding. MUSCULOSKELETAL: Left leg wrapped, dressing c/d/di. Extremities without clubbing, cyanosis. No calf tenderness. Negative Homans sign bilaterally. NEUROLOGICAL: Awake and alert. Cranial nerves II through XII intact. Motor and sensory grossly within normal limits. Five out of 5 muscle strength in all muscle groups. Normal speech. Pt update on day of discharge Patient says she feels improving. Dressing was changed in the morning by Dr Malloy and new recommendations for the wound care. Wound is healing well. Patient denies having oain. No fever or chills. No n/v/d/c./ No chest pain or palpitations. Hospital Course 86 yo F with Left leg cellulitis, resolving Stage 2 ulceration Blood cultures NTD Vancomycin allergy. Rash. Stop vanco .Switch to clindamycin IVabx. Benadryl prn for allergy. Monitor. ELI, improved kidney function with IVF Consult podiatry and wound nurse Seen by Dr Malloy podiatry , appreciate recommendations. Dressing changed once daily- cleanse wound with sterile saline, dry well, apply thick layer of santyl , cover with gauze, secure with a light beau wrap and paper tape). Continue clindamycin at DC for 7-10 days. Follow up with Dr Malloy as OP On IVF Pain meds per pain scale. Laxatives/stool softeners as need. PT for eval. ELI. Mild. Avoid nephrotoxins. On IVF. Monitor kidney indices Noted wit tachycardia 08/02. Cardiology consulted recommends medical management. Patient is asymptomatic. HTN: Start norvasc. Hydralazine PRN History of chronic tobacco abuse quit 1 month ago , h/o AAA with repair in August 2015. Stable at this time. Tobaccoism> Counselled extensively. Improved. BP better controlled continue norvasc at DC. Cleared by podiatry for DC follow up as OP with PCP and podiatry. Pt Condition on Discharge: Stable Discharge Disposition: Disch w/ Home Health Serv Discharge Time: > 30 minutes Discharge Instructions Activities you can perform: Regular-No Restrictions Activities to Avoid: Driving Other Activity Instructions: once daily- cleanse wound with sterile saline, dry well, apply thick layer of santyl, cover with gauze, secure with a light beau wrap and paper tape) Follow up Referrals: PCP Follow-up - 3-5 Days Podiatry - 1 Week with Elizabeth Malloy DPM SNF[facility]/ with [facility] New Medications: Clindamycin (Clindamycin) 300 Mg Cap 300 MG PO TID Infection #30 Ref 0 CAP Walker Rolling/GetGo (Walker Rolling/GetGo) 1 Mis Mis 1 EA .ROUTE DIRECTED #1 EA Amlodipine (Norvasc) 5 Mg Tab 5 MG PO DAILY Blood Pressure Management #30 TAB Carboxymethylcellulos-Hypromellose Opth Gel (Genteal Severe Opth Gel) 0.25-0.3% Gel 2 DROP EACH EYE Q6H PRN DRY EYE Days 7 TUBE Collagenase (Santyl) 250 Unit/Gm Oin 1 APPLIC TOPICAL DAILY wound care Days 7 TUBE Vickie Holguin MD August 04, 2016 09:00
[2016-08-04 09:02] LABS: BICARBONATE 29.3 MEQ/L (21.0-32.0)
[2016-08-04] MEDS ORDERED: GENT0.3G EACH EYE (09:02)
[2016-08-04] MEDS ORDERED: CLIN1CAP6 PO ×2 (09:02→10:35)
[2016-08-04] MEDS ORDERED: COLL30T TOPICAL (09:02)
[2016-08-04] MEDS: SODIUM CHLORIDE 0.9% FLUSH 10 ML FLUSH IV FLUSH SCH (09:16)
[2016-08-04] MEDS: amLODIPine BESYLATE 5 MG TAB PO SCH (09:16)
[2016-08-04] MEDS: ENOXAPARIN SODIUM 40 MG/0.4 ML SYRINGE SQ SCH (10:52)
[2016-08-06] MEDS ORDERED: PHARMACY ORDERED LAB ONE (11:45)
== END 2016-08-04 11:31 | disposition home health service (06) ==
LOC: PHED 20:13 → INTOOBSV 22:33 → PHEDA 22:33 → PH3B 08-01 00:18
PROVIDERS: ADMIT Hospitalist; ATTEND Hospitalist
DX: L03.116 Cellulitis of left lower limb (principal); L97.829 Non-pressure chronic ulcer of other part of left lower leg with unspecified severity; S81.812D Laceration without foreign body, left lower leg, subsequent encounter; N17.9 Acute kidney failure, unspecified; I10 Essential (primary) hypertension; J45.909 Unspecified asthma, uncomplicated; R00.0 Tachycardia, unspecified; R21 Rash and other nonspecific skin eruption; T36.8X5A Adverse effect of other systemic antibiotics, initial encounter; E78.5 Hyperlipidemia, unspecified; R29.6 Repeated falls; R53.1 Weakness; Z86.79 Personal history of other diseases of the circulatory system; Z96.642 Presence of left artificial hip joint; Z88.5 Allergy status to narcotic agent; Z87.891 Personal history of nicotine dependence; Z86.73 Personal history of transient ischemic attack (TIA), and cerebral infarction without residual deficits; W20.8XXD Other cause of strike by thrown, projected or falling object, subsequent encounter
CPT/HCPCS: 73610; 80048; 80053; 81001; 83735; 84100; 85025; 93005; 96365; 97163; 99284; G0378; G8987; G8988; J1200; J1650; J3370; J7030; J7050

== ENCOUNTER 2017-08-17 19:47 | Emergency (ER) | payer OTHER, MEDICAID ==
[~2017-08-17] VITALS: Ht 157.5 cm; Wt 63.5 kg
[~2017-08-17 19:47] MED LIST changes: -ACET325S8 PO; -AMLO2.5T PO; +AMLO5 PO; -CEPH-460 PO; +CLIN300C5 PO; +COLL30T TOPICAL; +GENT0.3G EACH EYE; +GETGO ROLLING W1 MI1
[2017-08-17 20:22] VITALS: BP 140/89; PULSE 83; RESP 16; TEMP 98; O2SAT 97
--- NOTE | 2017-08-17 21:13 | PD ---
HPI Chief Complaint: Numbness/Tingling Time Seen by Provider: 20:41 Travel History International Travel<30 days: No Contact w/Intl Traveler<30days: No Traveled to known affect area: No History of Present Illness HPI 87yo F presents to the ED for numbness in her hands and feet since yesterday. Pt states that the numbness in her hands started first, and extends only into her R forearm. She then reports that this morning when she was trying to get out of bed, her legs felt weak and she had some numbness in her lower extremities bilaterally along with some "body pain." She states that she has a history of a stroke several years prior, and this feels the same. She also reports that in the past a window fell on her and has been having problems similar to this ever since. She states the numbness has been the same all day without any aggravating or alleviating factors. She denies any headaches, blurred vision or vision changes, weakness, chest pain, SOB, nausea, vomiting, constipation, diarrhea or problems with urination. PFSH Past Medical History AAA: Yes Arthritis: Yes Asthma: Yes Blood Disorders: No Heart Rhythm Problems: Yes ("My heart skips a beat sometimes") Cancer: No Cardiovascular Problems: Yes High Cholesterol: Yes Chest Pain: No Congestive Heart Failure: No Cerebrovascular Accident: Yes (TIA) Diminished Hearing: No Endocrine: No Gastrointestinal Disorders: No Genitourinary: No Headaches: No Hypertension: Yes Immune Disorder: No Medical other: Yes (pt states aneurysm repair) Musculoskeletal: No Neurologic: No Psychiatric: No Reproductive: No Respiratory: Yes (ASTHMA) Immunizations Current: No Migraines: No Seizures: No Tetanus Vaccination: < 5 Years Menopausal: Yes : 8 Para: 6 Miscarriage: 2 Past Surgical History Abdominal Surgery: Yes Appendectomy: Yes Eye Surgery: Yes (Cataracts) Gynecologic Surgery: Yes (HYSTERECTOMY) Hysterectomy: Yes Joint Replacement: Yes ((L) hip replacement) Neurologic Surgery: No Other Surgery: Yes (hysterectomy, appendectomy, left hip replacement) Social History Alcohol Use: No Tobacco Use: Yes (2-3 cigarettes/day) Substance Use: No Allergies-Medications (Allergen,Severity, Reaction): Coded Allergies: vancomycin (Unverified Allergy, Intermediate, Rash, 10/29/16) welts codeine (Unverified Adverse Reaction, Severe, "Makes me want to climb the gilmore", 10/29/16) Reported Meds & Prescriptions Reported Meds & Active Scripts Active No Active Prescriptions or Reported Medications Review of Systems General / Constitutional: No: Fever Eyes: No: Diploplia, Blurred Vision HENT: No: Headaches, Lightheadedness Cardiovascular: No: Chest Pain or Discomfort, Palpitations Respiratory: No: Shortness of Breath Gastrointestinal: No: Nausea, Vomiting, Diarrhea, Abdominal Pain Physical Exam Narrative GENERAL: well developed and well nourished female who appears her stated age in no apparent distress. Alert and oriented x3. SKIN: Warm and dry. HEAD: Atraumatic. Normocephalic. EYES: Pupils equal and round. No scleral icterus. No injection or drainage. ENT: No nasal bleeding or discharge. Mucous membranes pink and moist. CARDIOVASCULAR: Regular rate and rhythm. No murmurs, rubs or gallops. RESPIRATORY: No accessory muscle use. Clear to auscultation. Breath sounds equal bilaterally. GASTROINTESTINAL: Abdomen soft, non-tender, nondistended. Hepatic and splenic margins not palpable. MUSCULOSKELETAL: Extremities without clubbing, cyanosis, or edema. No obvious deformities. NEUROLOGICAL: Awake and alert. No obvious cranial nerve deficits. Motor grossly within normal limits. 3 out of 5 muscle strength in the arms and legs due to poor effort. Normal speech. Intact and equal sensation bilaterally. Heel -to-zavala and pvaspw-sv-ryah test intact bilaterally. PSYCHIATRIC: Appropriate mood and affect; insight and judgment normal. Data Data Last Documented VS Vital Signs Date Time Temp Pulse Resp B/P (MAP) Pulse Ox O2 Delivery O2 Flow Rate FiO2 08/17/17 22:15 73 18 154/87 (109) 96 Room Air 08/17/17 20:22 98.0 Orders Orders Complete Blood Count With Diff (08/17/17 21:00) Comprehensive Metabolic Panel (08/17/17 21:00) Urinalysis - C+S If Indicated (08/17/17 21:00) Thyroid Stimulating Hormone (08/17/17 21:00) Ct Brain W/O Iv Contrast(Rout) (08/17/17 21:00) Iv Access Insert/Monitor (08/17/17 21:00) Ecg Monitoring (08/17/17 21:00) Oximetry (08/17/17 21:00) Sodium Chlorid 0.9% 500 Ml Inj (Ns 500 M (08/17/17 22:15) Sodium Chlorid 0.9% 500 Ml Inj (Ns 500 M (08/17/17 23:30) Labs Laboratory Tests Test 08/17/17 21:00 White Blood Count 9.0 TH/MM3 Red Blood Count 4.71 MIL/MM3 Hemoglobin 14.5 GM/DL Hematocrit 43.2 % Mean Corpuscular Volume 91.8 FL Mean Corpuscular Hemoglobin 30.7 PG Mean Corpuscular Hemoglobin Concent 33.5 % Red Cell Distribution Width 13.5 % Platelet Count 163 TH/MM3 Mean Platelet Volume 8.9 FL Neutrophils (%) (Auto) 75.6 % Lymphocytes (%) (Auto) 15.7 % Monocytes (%) (Auto) 6.5 % Eosinophils (%) (Auto) 1.2 % Basophils (%) (Auto) 1.0 % Neutrophils # (Auto) 6.8 TH/MM3 Lymphocytes # (Auto) 1.4 TH/MM3 Monocytes # (Auto) 0.6 TH/MM3 Eosinophils # (Auto) 0.1 TH/MM3 Basophils # (Auto) 0.1 TH/MM3 CBC Comment DIFF FINAL Differential Comment Blood Urea Nitrogen 38 MG/DL Creatinine 1.26 MG/DL Random Glucose 84 MG/DL Total Protein 7.2 GM/DL Albumin 2.9 GM/DL Calcium Level 8.7 MG/DL Alkaline Phosphatase 94 U/L Aspartate Amino Transf (AST/SGOT) 46 U/L Alanine Aminotransferase (ALT/SGPT) 36 U/L Total Bilirubin 0.4 MG/DL Sodium Level 138 MEQ/L Potassium Level 4.0 MEQ/L Chloride Level 105 MEQ/L Carbon Dioxide Level 23.1 MEQ/L Anion Gap 10 MEQ/L Estimat Glomerular Filtration Rate 40 ML/MIN Thyroid Stimulating Hormone 3rd Gen 2.390 uIU/ML [facility] Medical Decision Making Medical Screen Exam Complete: Yes Emergency Medical Condition: Yes Differential Diagnosis TIA versus metabolic derangement versus dehydration TIA Narrative Course TIA 87-year-old 87-year-old female presents today with complaints of numbness and tingling to her hands and feet. Patient is noted to be dehydrated here. The rest of her metabolic workup was negative. Patient has what appears to be in old meningioma on CT scan. There is also microvascular changes. There is no acute process noted. She has been given 1 L of IV fluid. She has been instructed to increase her fluid intake. They will follow up with her primary care doctor, Dr. Crandall this week. Diagnosis Primary Impression: Paresthesia of upper and lower extremities of both sides Additional Impression: Acute dehydration Additional Instructions: Drink more water. Follow-up with your primary care doctor this week. Return if any new complaints. Scripts No Active Prescriptions or Reported Meds Disposition: 01 DISCHARGE HOME Condition: Stable Dougie Xie MD Aug 17, 2017 21:13
--- NOTE | 2017-08-17 21:25 | RADRPT ---
EXAM DATE: 08/17/2017 9:20 PM EDT AGE/SEX: 87 years / Female INDICATIONS: Numbness in bilateral arms and legs, worse on left side. CLINICAL DATA: This is the patient's initial encounter. Patient reports that signs and symptoms have been present for 1 day and indicates a pain score of 0/10. MEDICAL/SURGICAL HISTORY: Cerebrovascular disease. Cardiovascular disease. Hypertension. Abdomin al Aortic Aneurysm. Appendectomy. Hysterectomy. RADIATION DOSE: 34.72 CTDI (mGy) COMPARISON: [facility], CT BRAIN W/O CONTRAST, 12/12/2015. [facility], CT BRAIN W/O CONTRAST, 04/30/2015. . TECHNIQUE: CT of the head without contrast. Using automated exposure control and adjustment of the mA and/or kV according to patient size, radiation dose was kept as low as reasonably achievable to ob tain optimal diagnostic quality images. FINDINGS: Old lacunar infarcts are noted within the bilateral colin. Mild cerebral and cerebellar atro phy is noted. Mild periventricular and subcortical white matter small vessel ischemic changes are not ed bilaterally. There is a calcified extra-axial mass which arises from the falx measuring 1 cm consi stent with probable calcified meningioma which is stable. There is no acute hemorrhage, midline shift or extra-axial fluid collections. CONCLUSION: 1. Old lacunar infarcts within the bilateral colin. 2. Mild periventricular and subcortical white matter small vessel ischemic changes bilaterally. 3. Mild cerebral and cerebellar atrophy. 4. 1 cm calcified extra-axial mass within the midline which arises from the falx consistent with pro bable calcified meningioma which is stable. 5. No acute hemorrhage, mass effect or extra-axial fluid collections. Electronically signed by: Soto Traore MD 08/17/2017 9:24 PM EDT
[2017-08-17 21:40] LABS: AUTOMATED NEUTROPHIL # 6.8 TH/MM3 (1.8-7.7); BASOPHIL # 0.1 TH/MM3 (0-0.2); EOSINOPHIL # 0.1 TH/MM3 (0-0.4); EOSINOPHIL % 1.2 % (0.0-4.0); HEMATOCRIT 43.2 % (35.0-46.0); HEMOGLOBIN 14.5 GM/DL (11.6-15.3); LYMPH % 15.7 % (9.0-44.0); LYMPHOCYTE # 1.4 TH/MM3 (1.0-4.8); MEAN CELL VOLUME 91.8 FL (80.0-100.0); MEAN CORPUSCULAR HEMOGLOBIN 30.7 PG (27.0-34.0); MEAN CORPUSCULAR HGB CONC 33.5 % (32.0-36.0); MEAN PLATELET VOLUME 8.9 FL (7.0-11.0); MONO % 6.5 % (0.0-8.0); MONOCYTE # 0.6 TH/MM3 (0-0.9); NEUT % 75.6 % (16.0-70.0); PLATELET COUNT 163 TH/MM3 (150-450); RED BLOOD COUNT 4.71 MIL/MM3 (4.00-5.30); RED CELL DISTRIBUTION WIDTH 13.5 % (11.6-17.2)
[2017-08-17 21:55] LABS: ALBUMIN 2.9 GM/DL (3.4-5.0); AST (GOT) 46 U/L (15-37); BICARBONATE 23.1 MEQ/L (21.0-32.0); BLOOD UREA NITROGEN 38 MG/DL (7-18); CALCIUM 8.7 MG/DL (8.5-10.1); CHLORIDE 105 MEQ/L (98-107); CREATININE 1.26 MG/DL (0.50-1.00); GLOMERULAR FILTRATION RATE 40 ML/MIN (>89); GLUCOSE,RANDOM 84 MG/DL (74-106); SODIUM (NA) 138 MEQ/L (136-145)
[2017-08-17 21:56] LABS: ALT (GPT) 36 U/L (10-53)
[2017-08-17 22:06] LABS: ALKALINE PHOSPHATASE 94 U/L (45-117); TOTAL BILIRUBIN ADULT 0.4 MG/DL (0.2-1.0); TOTAL PROTEIN 7.2 GM/DL (6.4-8.2)
[2017-08-17 22:15] VITALS: BP 154/87; PULSE 73; RESP 18; O2SAT 96
[2017-08-17] MEDS ORDERED: SODIUM CHLORID 0.9% 500 ML INJ 500 ML IV ONE ×2 (22:15→23:30)
[2017-08-18 00:51] VITALS: BP 133/87; PULSE 59; RESP 16; O2SAT 98
[2017-08-18 00:53] LABS: BILIRUBIN, URINE NEG (NEG); BLOOD, URINE SMALL (NEG); GLUCOSE,URINE NEG (NEG); HYALINE CAST, URINE 7 /lpf (RARE); KETONE, URINE NEG (NEG); MUCUS URINE FEW /lpf (OCC); NITRITE,URINE NEG (NEG); SQUAMOUS EPITHELIAL CELL URINE 1 /hpf (0-5); URINE COLOR YELLOW (YELLW/STRAW); URINE LEUKOCYTE ESTERASE SMALL (NEG)
== END 2017-08-18 01:06 | disposition home or self-care (01) ==
LOC: NEPE 19:47
DX: R20.2 Paresthesia of skin (principal); E86.0 Dehydration; J45.909 Unspecified asthma, uncomplicated; E78.00 Pure hypercholesterolemia, unspecified; I10 Essential (primary) hypertension; M19.90 Unspecified osteoarthritis, unspecified site; F17.210 Nicotine dependence, cigarettes, uncomplicated; Z88.5 Allergy status to narcotic agent; Z86.73 Personal history of transient ischemic attack (TIA), and cerebral infarction without residual deficits
CPT/HCPCS: 70450; 80053; 81001; 84443; 85025; 87086; 96360; 99284; J7040

== ENCOUNTER 2018-03-07 16:03 | Observation (INO) ==
--- NOTE | 2018-03-07 16:50 | ED ---
HPI General Chief complaint: Medical Clearance Stated complaint: medical Time Seen by Provider: 03/07/18 16:23 History of Present Illness HPI narrative: This is an 87-year-old female. According to triage the patient' s daughter's ex-boyfriend dropped her off here saying that he can no longer take care of her. The daughter apparently dropped the patient off at the ex- boyfriend's house. The location of the daughter and the ex-boyfriend are not known. The patient is wearing a diaper which is caked and dry feces. She reports that she has not eaten in the past week. She is complaining of some abdominal pain which started today and it is worse with coughing. She is complaining of some pain in her thighs. She otherwise has no other complaints. She denies chest pain, shortness of breath, dysuria, fevers. Related Data Home Medications Medication Instructions Recorded Confirmed No Known Home Medications 01/31/18 03/07/18 Allergies Allergy/AdvReac Type Severity Reaction Status Date / Time vancomycin Allergy Intermediate Rash Verified 01/31/18 15:29 codeine AdvReac Severe "Makes me Verified 01/31/18 15:29 want to climb the [place]" Review of Systems ROS: all other systems reviewed are negative [facility] Social History Social History Substance History: No History of Abuse Second Hand Smoke Exposure: Yes Smoking Status: Current every day smoker Tobacco Type: Cigarettes How Often Do You Have a Drink Containing Alcohol: Never Recent Travel in [facility] within the Last 8 Weeks: No Recent Out of Country Travel within the Last 8 Weeks: No Exam Narrative Exam Narrative: GENERAL: This is a frail elderly female in no acute distress. SKIN: Warm and dry. Stage I ulcer noted on the sacrum. Bruises in various degrees of healing are noted to the lower extremities. HEAD: Atraumatic. Normocephalic. EYES: Pupils equal and round. No scleral icterus. No injection or drainage. ENT: No nasal bleeding or discharge. Mucous membranes pink and moist. NECK: Trachea midline. No JVD. CARDIOVASCULAR: Regular rate and rhythm. No murmur appreciated. RESPIRATORY: No accessory muscle use. Clear to auscultation. Breath sounds equal bilaterally. GASTROINTESTINAL: Abdomen soft, there is generalized mild tenderness to palpation without guarding. MUSCULOSKELETAL: No obvious deformities. No clubbing. No cyanosis. No edema. NEUROLOGICAL: Awake and alert. No obvious cranial nerve deficits. Motor grossly within normal limits. Normal speech. Course Initial Documented Vital Signs Temperature 97.5 F L 03/07/18 16:09 Pulse Rate 71 03/07/18 16:09 Respiratory Rate 16 03/07/18 16:09 Blood Pressure 136/100 H 03/07/18 16:09 Pulse Oximetry 96 03/07/18 16:09 Last Documented Vital Signs Temperature 97.5 F L 03/07/18 16:09 Pulse Rate 62 03/07/18 18:52 Respiratory Rate 18 03/07/18 18:52 Blood Pressure 188/88 H 03/07/18 18:52 Pulse Oximetry 99 03/07/18 18:52 Medical Decision Making MDM Narrative Medical decision making narrative: The police are currently at bedside and they will be filing a DCF report. I discussed with the director of casework services as well. Lab work was obtained. CBC is notable for leukocytosis with WBC count of 19, 87.9% neutrophils, lactic acid and blood cultures ordered. CMP reveals a GFR of 45 with a BUN of 53 and a creatinine of 1.15 which is increased from her lab work on January 31. She will be given 500 mL of normal saline. Urinalysis reveals many bacteria, 101 WBCs, moderate leukocytes, moderate WBC clumps, catheterized specimen, consistent with UTI. She was given Rocephin. CT abdomen pelvis reveals small pericardial effusion, cardiomegaly, stable distal thoracic aortic aneurysm, cholelithiasis, no acute abnormalities. At this point in time the plan is to admit her for UTI, dehydration, leukocytosis. director of casework services will need to be consulted to help with placement during her hospitalization. Medical Screen Exam Complete: Yes Emergency Medical Condition: Yes Differential Diagnosis Differential Diagnosis: Inability to care for self, elderly abandonment, dehydration, UTI Lab Data Result diagrams: 03/07/18 16:55 03/07/18 16:55 Lab Results 03/07/18 03/07/18 03/07/18 Range/Units 16:50 16:55 16:55 WBC 19.0 H (4.0-11.0) th/mm3 RBC 4.61 (4.00-5.30) mil/mm3 Hgb 14.6 (11.6-15.3) gm/dL Hct 42.2 (35.0-46.0) % MCV 91.4 (80.0-100.0) fL MCH 31.8 (27.0-34.0) pg MCHC 34.7 (32.0-36.0) % RDW 13.9 (11.6-17.2) % Plt Count 140 L (150-450) th/mm3 MPV 9.4 (7.0-11.0) fL Neut % (Auto) 87.9 H (16.0-70.0) % Lymph % (Auto) 5.8 L (9.0-44.0) % Mccormick % (Auto) 5.6 (0.0-8.0) % Eos % (Auto) 0.3 (0.0-4.0) % Baso % (Auto) 0.4 (0.0-2.0) % Neut # (Auto) 16.7 H (1.8-7.7) th/mm3 Lymph # (Auto) 1.1 (1.0-4.8) th/mm3 Mccormick # (Auto) 1.1 H (0.0-0.9) th/mm3 Eos # (Auto) 0.1 (0.0-0.4) th/mm3 Baso # (Auto) 0.1 (0.0-0.2) th/mm3 WBC Differential . Differential Comment Auto diff final Sodium 139 (136-145) meq/L Potassium 4.3 (3.5-5.1) meq/L Chloride 104 (98-107) meq/L Carbon Dioxide 25.6 (21.0-32.0) meq/L Anion Gap 9 (5-15) meq/L BUN 53 H (7-18) mg/dL Creatinine 1.15 H (0.50-1.00) mg/dL Estimated GFR 45 L (>89) mL/min Random Glucose 109 H (74-106) mg/dL Lactic Acid (0.4-2.0) mmol/L Calcium 8.4 L (8.5-10.1) mg/dL Magnesium 2.6 H (1.5-2.5) mg/dL Total Bilirubin 0.8 (0.2-1.0) mg/dL AST 31 (15-37) U/L ALT 16 (10-53) U/L Alkaline Phosphatase 88 (45-117) U/L Total Creatine Kinase 46 (26-192) U/L Total Protein 7.5 (6.4-8.2) g/dL Albumin 2.4 L (3.4-5.0) g/dL Lipase 62 L (73-393) U/L Urine Color Yellow (Yellw/Straw) Urine Clarity Cloudy H (Clear) Urine pH 6.0 (5.0-8.5) Ur Specific [place] 1.017 (1.002-1.035) Urine Protein 500 or greater (Neg-Trace) mg/dL Urine Glucose (UA) Negative (Negative) mg/dL Urine Ketones Trace H (Negative) mg/dL Urine Occult Blood Negative (Negative) Urine Nitrate Negative (Negative) Urine Bilirubin Negative (Negative) Urine Urobilinogen Less than 2 (Less than 2) mg/dL Ur Leukocyte Esterase Moderate H (Negative) Urine RBC 1 (0-3) /hpf Urine WBC 101 H (0-5) /hpf Urine WBC Clumps Moderate H (None) Ur Squamous Epith Cells 1 (0-5) /hpf Urine Bacteria Many H (None) /hpf Micro UA Comment Cath-culture ind Ur Microscopic Review Not Reportable Urine Culture Comments Cath-cult indicated 03/07/18 Range/Units 17:35 WBC (4.0-11.0) th/mm3 RBC (4.00-5.30) mil/mm3 Hgb (11.6-15.3) gm/dL Hct (35.0-46.0) % MCV (80.0-100.0) fL MCH (27.0-34.0) pg MCHC (32.0-36.0) % RDW (11.6-17.2) % Plt Count (150-450) th/mm3 MPV (7.0-11.0) fL Neut % (Auto) (16.0-70.0) % Lymph % (Auto) (9.0-44.0) % Mccormick % (Auto) (0.0-8.0) % Eos % (Auto) (0.0-4.0) % Baso % (Auto) (0.0-2.0) % Neut # (Auto) (1.8-7.7) th/mm3 Lymph # (Auto) (1.0-4.8) th/mm3 Mccormick # (Auto) (0.0-0.9) th/mm3 Eos # (Auto) (0.0-0.4) th/mm3 Baso # (Auto) (0.0-0.2) th/mm3 WBC Differential Differential Comment Sodium (136-145) meq/L Potassium (3.5-5.1) meq/L Chloride (98-107) meq/L Carbon Dioxide (21.0-32.0) meq/L Anion Gap (5-15) meq/L BUN (7-18) mg/dL Creatinine (0.50-1.00) mg/dL Estimated GFR (>89) mL/min Random Glucose (74-106) mg/dL Lactic Acid 1.3 (0.4-2.0) mmol/L Calcium (8.5-10.1) mg/dL Magnesium (1.5-2.5) mg/dL Total Bilirubin (0.2-1.0) mg/dL AST (15-37) U/L ALT (10-53) U/L Alkaline Phosphatase (45-117) U/L Total Creatine Kinase (26-192) U/L Total Protein (6.4-8.2) g/dL Albumin (3.4-5.0) g/dL Lipase (73-393) U/L Urine Color (Yellw/Straw) Urine Clarity (Clear) Urine pH (5.0-8.5) Ur Specific [place] (1.002-1.035) Urine Protein (Neg-Trace) mg/dL Urine Glucose (UA) (Negative) mg/dL Urine Ketones (Negative) mg/dL Urine Occult Blood (Negative) Urine Nitrate (Negative) Urine Bilirubin (Negative) Urine Urobilinogen (Less than 2) mg/dL Ur Leukocyte Esterase (Negative) Urine RBC (0-3) /hpf Urine WBC (0-5) /hpf Urine WBC Clumps (None) Ur Squamous Epith Cells (0-5) /hpf Urine Bacteria (None) /hpf Micro UA Comment Ur Microscopic Review Urine Culture Comments Imaging Data Radiologist's impression: Abdomen/Pelvis CT 03/07/18 16:54 CONCLUSION: 1. Small pericardial effusion. 2. Cardiomegaly. 3. Distal thoracic aortic aneurysm which is stable compared to the previous examination and measures 3.7 cm in greatest dimension and contains eccentric mural thrombus. 4. Cholelithiasis. 5. Uncomplicated colonic diverticulosis. 6. Tiny bilateral subcentimeter renal cysts. 7. Degenerative changes and scoliosis of the thoracolumbar spine. Chest X-Ray 03/07/18 17:27 CONCLUSION: 1. No acute abnormality or significant interval change. Discharge Plan Discharge Disposition Patient Disposition: ED Admit(ED Internal Use Only) Discharge Condition Condition: Stable Discharge Order Discharge Orders: ED Use Only Admit Order (Routine); Ordered 03/07/18 Ordered By: Natanael Barton Discharge Details Diagnosis: UTI (urinary tract infection), Dehydration, Leukocytosis Physicians Team ED Provider: Soto Thomas ED Midlevel Provider: Natanael Barton Primary Care Provider: UNKNOWN, Rxs /Orders / Referrals /Forms Prescriptions: No Action No Known Home Medications RF: 0 Status ED Status: With Doctor
[2018-03-07 17:21] LABS: Baso # (Auto) 0.1 th/mm3 (0.0-0.2); Baso % (Auto) 0.4 % (0.0-2.0); Eos # (Auto) 0.1 th/mm3 (0.0-0.4); Eos % (Auto) 0.3 % (0.0-4.0); Hematocrit 42.2 % (35.0-46.0); Hemoglobin 14.6 gm/dL (11.6-15.3); Lymph # (Auto) 1.1 th/mm3 (1.0-4.8); Lymph % (Auto) 5.8 % (9.0-44.0); Mean Corpuscular HGB Conc 34.7 % (32.0-36.0); Mean Corpuscular Hemoglobin 31.8 pg (27.0-34.0); Mean Corpuscular Volume 91.4 fL (80.0-100.0); Mean Platelet Volume 9.4 fL (7.0-11.0); Mono # (Auto) 1.1 th/mm3 (0.0-0.9); Mono % (Auto) 5.6 % (0.0-8.0); Neut # (Auto) 16.7 th/mm3 (1.8-7.7); Neut % (Auto) 87.9 % (16.0-70.0); Platelet Count 140 th/mm3 (150-450); Red Blood Count 4.61 mil/mm3 (4.00-5.30); Red Cell Distribution Width 13.9 % (11.6-17.2)
[2018-03-07 17:26] LABS: Bacteria,Urine Many /hpf; Bilirubin,Urine Negative (Negative); Clarity,Urine Cloudy (Clear); Glucose,Urine (UA) Negative (Negative); Leukocyte Esterase,Urine Moderate (Negative); Nitrite,Urine Negative (Negative); Specific Gravity,Urine 1.017 (1.002-1.035); Squamous Epithelial Cell,Urine 1 /hpf (0-5)
[2018-03-07 17:27] LABS: Color,Urine Yellow (Yellw/Straw)
[2018-03-07 17:42] LABS: Alanine Aminotransferase 16 U/L (10-53); Albumin 2.4 g/dL (3.4-5.0); Alkaline Phosphatase 88 U/L (45-117); Anion Gap 9 meq/L (5-15); Aspartate Aminotransferase 31 U/L (15-37); Blood Urea Nitrogen 53 mg/dL (7-18); Calcium 8.4 mg/dL (8.5-10.1); Carbon Dioxide 25.6 meq/L (21.0-32.0); Chloride 104 meq/L (98-107); Glomerular Filtration Rate 45 mL/min (>89); Glucose,Random 109 mg/dL (74-106); Lipase 62 U/L (73-393); Magnesium 2.6 mg/dL (1.5-2.5); Potassium 4.3 meq/L (3.5-5.1); Sodium 139 meq/L (136-145); Total Protein 7.5 g/dL (6.4-8.2)
[2018-03-07 17:53] LABS: Creatine Kinase 46 U/L (26-192)
--- NOTE | 2018-03-07 17:58 | XR ---
EXAM DATE: 03/07/2018 5:56 PM EST AGE/SEX: 87 years / Female INDICATIONS: Cough. CLINICAL DATA: This is the patient's initial encounter. Patient reports that signs and symptoms have been present for 1 day and indicates a pain score of 0/10. MEDICAL/SURGICAL HISTORY: Hypertension. Stroke. Abdominal aortic aneurysm repair. Left hip art hroplasty. COMPARISON: [facility] [place], CHEST 1V SINGLE AP, 01/31/2018. . FINDINGS: Stable calcified granuloma at the right lung base. Mild diffuse interstitial prominence unchanged fro m prior exam. The cardiac silhouette is enlarged. Osseous structures are intact. CONCLUSION: 1. No acute abnormality or significant interval change. Electronically signed by: Gary Ochoa MD Board Certified Radiologist 03/07/2018 5:57 PM SOFI T
[2018-03-07] MEDS ORDERED: Sodium Chlor 0.9% Inj 500 ML IV.SIG SCH (18:00)
--- NOTE | 2018-03-07 18:35 | CT ---
EXAM DATE: 03/07/2018 6:24 PM EST AGE/SEX: 87 years / Female INDICATIONS: Diffuse abdominal pain. CLINICAL DATA: This is the patient's initial encounter. Patient reports that signs and symptoms have been present for 3 days and indicates a pain score of 6/10. MEDICAL/SURGICAL HISTORY: Aneurysm, abdominal. Cerebrovascular disease. Hypertension. Hystere ctomy. ORAL CONTRAST: No oral contrast ingested. RADIATION DOSE: 6.73 CTDI (mGy) COMPARISON: [facility] [place], CTA THOR ABD AORTA W CONTRAST W 3D, 12/04/2017. [facility] [place], CTA THORACIC ABDOMINAL AOR TA W 3D RECON, 12/12/2015. . TECHNIQUE: Multiple contiguous axial images were obtained through the abdomen and pelvis following b olus infusion of 61 ml Omnipaque 350 (iohexol) nonionic water-soluble contrast as a single exam dos e. No oral contrast ingested. Using automated exposure control and adjustment of the mA and/or kV ac cording to patient size, radiation dose was kept as low as reasonably achievable to obtain optimal di agnostic quality images. DICOM format image data is available electronically for review and comparis on. FINDINGS: Lower Lungs: Small pericardial effusion is noted. The heart is enlarged. There is a calcified granulo ma within the right lower lobe. Liver: The liver has a homogeneous density without space-occupying lesion. There is no dilation of th e biliary tree. Calcified gallstones are noted within the gallbladder. Spleen: Homogeneous density without enlargement. Pancreas: Unremarkable without mass or calcification. Kidneys: Normal in size and shape. No evidence of mass or hydronephrosis. Tiny bilateral subcentimet er cysts are noted. Adrenal Glands: Unremarkable. Aorta: There is a distal thoracic aortic aneurysm which is stable compared to the previous examinati on and measures 3.7 cm in greatest dimension and contains eccentric mural thrombus. Aortic stent kami t is noted. Bowel/Mesentery: Uncomplicated colonic diverticulosis is noted. Abdominal Wall: Intact. Retroperitoneum: No evidence of adenopathy in the retrocrural, para-aortic, or deep pelvic regions. Bladder: Contours are smooth. Reproductive Organs: No abnormal masses or calcifications seen. Inguinal: The inguinal region is unremarkable without evidence of adenopathy. Bony Structures: Degenerative changes and scoliosis of the thoracolumbar spine are noted. Left hip r eplacement is noted. CONCLUSION: 1. Small pericardial effusion. 2. Cardiomegaly. 3. Distal thoracic aortic aneurysm which is stable compared to the previous examination and measures 3.7 cm in greatest dimension and contains eccentric mural thrombus. 4. Cholelithiasis. 5. Uncomplicated colonic diverticulosis. 6. Tiny bilateral subcentimeter renal cysts. 7. Degenerative changes and scoliosis of the thoracolumbar spine. Electronically signed by: Soto Traore MD Board Certified Radiologist 03/07/2018 6:34 PM EST
[2018-03-07] MEDS ORDERED: Acetaminophen 325 MG Tablet PO PRN (19:39)
[2018-03-07] MEDS ORDERED: Bisacodyl 10 MG Supp RECTAL PRN (19:39)
[2018-03-07] MEDS ORDERED: hydrALAZINE HCl Inj 20 MG/ML Vial IV.PUSH ONE (19:41)
--- NOTE | 2018-03-07 19:54 | P.HP ---
History of Present Illness Service: [facility] Primary Care Physician: UNKNOWN History of Present Illness: 87-year-old female with a past medical history significant for hypertension, hyperlipidemia, history of AAA status post repair in 2016, arthritis, history of TIA and dysphasia presents to the emergency department after being dropped off by her daughter's boyfriend. Per ED notes, the patient's daughter's ex- boyfriend dropped her off saying that he can no longer take care of her and then he has to go to work. Apparently, the daughter dropped patient off at the ex-boyfriend's house. The location of the daughter is not known by the patient. On arrival, the patient was wearing a diaper and caked in dry feces. She reports that she had some leg pain today during our interview however according to ED documentation she endorses some abdominal pain and anorexia. The patient knows that it is 2018 but gets confused as to whether she is in [place] or [place]. She denies recently falling. States she usually ambulates with a walker however arrived with a wheelchair. She does not know if she has been to the doctor in the last 20 years. She denies any pain. Review of systems limited by mental status. Review of Systems All other systems reviewed negative except as stated in HPI PMFSH - History History Provided By: Patient - Medical History Medical History: Medical History (Last Updated 03/07/18 @ 19:47 by Lavonne Astorga MD) AAA (abdominal aortic aneurysm) (Acute) Hyperlipidemia Dysphagia History of hysterectomy Hypertension Stroke UTI (urinary tract infection) - Surgical History Surgical History: Surgical History (Last Updated 03/07/18 @ 19:48 by Lavonne Astorga MD) Status post AAA (abdominal aortic aneurysm) repair Status post appendectomy Status post hip surgery - Family History Family History: Family History (Last Updated 03/07/18 @ 19:48 by Lavonne Astorga MD) Other Diabetes mellitus - Tobacco History Second Hand Smoke Exposure: Yes Tobacco Use In Past 30 Days: Yes Smoking Status: Current every day smoker Tobacco Type: Cigarettes - Alcohol History How Often Do You Have a Drink Containing Alcohol: Never - Substance Use History Substance History: No History of Abuse - Travel History Recent Travel in the [place] Within the Last 8 Weeks: No Recent Travel Out of the Country Within the Last 8 Weeks: No - Immunization History Tetanus Immunization: Unsure Medications and Allergies Active Medications: Active Medications Sodium Chloride (Ns Flush) 2 ml IV.FLUSH PRN PRN PRN Reason: FLUSH AFTER USING IV ACCESS Allergies Allergy/AdvReac Type Severity Reaction Status Date / Time vancomycin Allergy Intermediate Rash Verified 01/31/18 15:29 codeine AdvReac Severe "Makes me Verified 01/31/18 15:29 want to climb the [place]" Home Medications Medication Instructions Recorded Confirmed Type No Known Home Medications 01/31/18 03/07/18 History Exam Vital signs: Vital Signs 03/07/18 16:09 03/07/18 16:45 03/07/18 18:52 Temperature 97.5 F L Pulse Rate 71 57 L 62 Respiratory Rate 16 17 18 Blood Pressure 136/100 H 199/113 H 188/88 H Pulse Oximetry 96 99 99 03/07/18 19:00 Temperature Pulse Rate 62 Respiratory Rate 16 Blood Pressure 177/81 H Pulse Oximetry 97 Intake & Output 03/07/18 03/07/18 03/08/18 06:59 18:59 06:59 Intake Total 100 / 100 500 / 500 Balance 100 / 100 500 / 500 Weight 39.916 kg Intake: IV 100 / 100 500 / 500 NS Inj 500 ML @ 1000 mls/hr IV. 500 / 500 SIG BOLUS YAIMA Rx#:[id number] Rocephin Inj 1,000 MG In NS Inj 100 / 100 100 ML @ 200 mls/hr IV.SIG ONCE ONE Rx#:[id number] Narrative: Gen.: No acute distress Head: Normocephalic. Atraumatic. EENT: Pupils equal round and reactive to light. Nose without drainage. Airway intact. Throat without injection. Cardiovascular: Regular rate and rhythm. 3/5 KETAN Respiratory: Lungs clear to auscultation bilaterally. No wheezes or rhonchi. Abdomen: Soft, nontender, nondistended. No peritoneal signs. Musculoskeletal: No gross deformities. No edema. Skin: No obvious rashes or erythema. Stage 1 sacral pressure ulcer. Neuro: Sensory and motor grossly intact. Cranial nerves II through XII grossly intact. Results - Labs CBC & Chem 7: 03/07/18 16:55 03/07/18 16:55 Labs: Laboratory Results - last 24 hr 03/07/18 03/07/18 03/07/18 16:50 16:55 16:55 WBC 19.0 H RBC 4.61 Hgb 14.6 Hct 42.2 MCV 91.4 MCH 31.8 MCHC 34.7 RDW 13.9 Plt Count 140 L MPV 9.4 Neut % (Auto) 87.9 H Lymph % (Auto) 5.8 L Black[place] % (Auto) 5.6 Eos % (Auto) 0.3 Baso % (Auto) 0.4 Neut # (Auto) 16.7 H Lymph # (Auto) 1.1 [place] # (Auto) 1.1 H Eos # (Auto) 0.1 Baso # (Auto) 0.1 WBC Differential . Differential Comment Auto diff final Sodium 139 Potassium 4.3 Chloride 104 Carbon Dioxide 25.6 Anion Gap 9 BUN 53 H Creatinine 1.15 H Estimated GFR 45 L Random Glucose 109 H Lactic Acid Calcium 8.4 L Magnesium 2.6 H Total Bilirubin 0.8 AST 31 ALT 16 Alkaline Phosphatase 88 Total Creatine Kinase 46 Total Protein 7.5 Albumin 2.4 L Lipase 62 L Urine Color Yellow Urine Clarity Cloudy H Urine pH 6.0 Ur Specific Rule 1.017 Urine Protein 500 or greater Urine Glucose (UA) Negative Urine Ketones Trace H Urine Occult Blood Negative Urine Nitrate Negative Urine Bilirubin Negative Urine Urobilinogen Less than 2 Ur Leukocyte Esterase Moderate H Urine RBC 1 Urine WBC 101 H Urine WBC Clumps Moderate H Ur Squamous Epith Cells 1 Urine Bacteria Many H Micro UA Comment Cath-culture ind Ur Microscopic Review Not Reportable Urine Culture Comments Cath-cult indicated 03/07/18 17:35 WBC RBC Hgb Hct MCV MCH MCHC RDW Plt Count MPV Neut % (Auto) Lymph % (Auto) Black[place] % (Auto) Eos % (Auto) Baso % (Auto) Neut # (Auto) Lymph # (Auto) [place] # (Auto) Eos # (Auto) Baso # (Auto) WBC Differential Differential Comment Sodium Potassium Chloride Carbon Dioxide Anion Gap BUN Creatinine Estimated GFR Random Glucose Lactic Acid 1.3 Calcium Magnesium Total Bilirubin AST ALT Alkaline Phosphatase Total Creatine Kinase Total Protein Albumin Lipase Urine Color Urine Clarity Urine pH Ur Specific Rule Urine Protein Urine Glucose (UA) Urine Ketones Urine Occult Blood Urine Nitrate Urine Bilirubin Urine Urobilinogen Ur Leukocyte Esterase Urine RBC Urine WBC Urine WBC Clumps Ur Squamous Epith Cells Urine Bacteria Micro UA Comment Ur Microscopic Review Urine Culture Comments - Imaging Impressions Abdomen/Pelvis CT 03/07/18 16:54 CONCLUSION: 1. Small pericardial effusion. 2. Cardiomegaly. 3. Distal thoracic aortic aneurysm which is stable compared to the previous examination and measures 3.7 cm in greatest dimension and contains eccentric mural thrombus. 4. Cholelithiasis. 5. Uncomplicated colonic diverticulosis. 6. Tiny bilateral subcentimeter renal cysts. 7. Degenerative changes and scoliosis of the thoracolumbar spine. Chest X-Ray 03/07/18 17:27 CONCLUSION: 1. No acute abnormality or significant interval change. Caprini VTE Risk Assessment Caprini VTE Risk Assessment: Moderate/High Risk (score >= 2) Caprini Risk Assessment Model: Point Value = 1 Point Value = 2 Point Value = 3 Point Value = 5 Age 41-60 Minor surgery BMI > 25 kg/m2 Swollen legs Varicose veins or History of unexplained or recurrent spontaneous Oral contraceptives or hormone replacement Sepsis (< 1 month) Serious lung disease, including pneumonia (< 1 month) Abnormal pulmonary function Acute myocardial infarction Congestive heart failure (< 1 month) History of inflammatory bowel disease Medical patient at bed rest Age 61-74 Arthroscopic surgery Major open surgery (> 45 min) Laparoscopic surgery (> 45 min) Malignancy Confined to bed (> 72 hours) Immobilizing plaster cast Central venous access Age >= 75 History of VTE Family history of VTE Factor V Leiden Prothrombin [id number] Lupus anticoagulant Anticardiolipin antibodies Elevated serum homocysteine Heparin-induced thrombocytopenia Other congenital or acquired thrombophilia Stroke (< 1 month) Elective arthroplasty Hip, pelvis, or leg fracture Acute spinal cord injury (< 1 month) Prophylaxis Regimen: Total Risk Factor Score Risk Level Prophylaxis Regimen 0-1 Low Early ambulation 2 Moderate Order ONE of the following: *Sequential Compression Device (SCD) *Heparin 5000 units SQ BID 3-4 Higher Order ONE of the following medications: *Heparin 5000 units SQ TID *Enoxaparin/Lovenox 40 mg SQ daily (WT < 150 kg, CrCl > 30 mL/min) *Enoxaparin/Lovenox 30 mg SQ daily (WT < 150 kg, CrCl > 10-29 mL/min) *Enoxaparin/Lovenox 30 mg SQ BID (WT < 150 kg, CrCl > 30 mL/min) AND/OR *Sequential Compression Device (SCD) 5 or more Highest Order ONE of the following medications: *Heparin 5000 units SQ TID (Preferred with Epidurals) *Enoxaparin/Lovenox 40 mg SQ daily (WT < 150 kg, CrCl > 30 mL/min) *Enoxaparin/Lovenox 30 mg SQ daily (WT < 150 kg, CrCl > 10-29 mL/min) *Enoxaparin/Lovenox 30 mg SQ BID (WT < 150 kg, CrCl > 30 mL/min) AND *Sequential Compression Device (SCD) Assessment and Plan - Plan Assessment/plan: 1. Altered mental status Baseline unknown Head CT pending May be secondary to UTI 2. Urinary tract infection UA consistent with UTI Urine culture pending Rocephin 3. Leukocytosis May be secondary to above Urine cultures pending Monitor 4. Heart murmur Patient denies history of heart murmur H&P from July 2016 does not document heart murmur Echo pending 5. Dehydration BUN/creatinine 53/1.15 IV fluid hydration Monitor renal function 6. Hypertension Patient denies taking medications regularly Hydralazine as needed Patient unable to care for herself at home. Was dropped off by her daughter's ex-boyfriend who police have been unable to locate. DCF has been contacted. Case management consulted to assist with placement. FEN Heart healthy diet Electrolytes: Monitor and replete as needed NS at 70 cc/hour Heparin
--- NOTE | 2018-03-07 20:27 | CT ---
EXAM DATE: 03/07/2018 8:21 PM EST AGE/SEX: 87 years / Female INDICATIONS: Headache. CLINICAL DATA: This is the patient's initial encounter. Patient reports that signs and symptoms have been present for 1 day and indicates a pain score of Nonresponsive. MEDICAL/SURGICAL HISTORY: Aneurysm, abdominal. Hypertension. Cerebrovascular disease. Appendectom y. RADIATION DOSE: 56.35 CTDI (mGy) [place] [facility] [place] [facility] [place]/O [place] 06/07/[place] . . TECHNIQUE: CT of the head without contrast. Using automated exposure control and adjustment of the mA and/or kV according to patient size, radiation dose was kept as low as reasonably achievable to ob tain optimal diagnostic quality images. DICOM format image data is available electronically for revi ew and comparison. FINDINGS: Diffuse cerebral atrophy is again noted. Periventricular and subcortical white matter small vessel is chemic changes are noted and are stable. Old lacunar infarcts are noted within the bilateral basal ga nglia and kimbrough radiata. Bilateral pontine ischemic changes are noted. There is a stable calcified m eningioma within the anterior falx measuring 10 mm. No acute infarct, acute hemorrhage, midline shift or extra-axial fluid collections are noted. CONCLUSION: 1. Diffuse cerebral atrophy. 2. Periventricular and subcortical white matter small vessel ischemic changes. 3. Old lacunar infarcts are noted within the bilateral basal ganglia and kimbrough radiata. 4. Bilateral pontine ischemic changes are noted. 5. Stable calcified meningioma within the anterior falx measuring 10 mm. 6. No acute infarct, acute hemorrhage, midline shift or extra-axial fluid collections. . Electronically signed by: Soto Traore MD Board Certified Radiologist 03/07/2018 8:26 PM EST
[2018-03-07] MEDS: Heparin - SQ 10,000 UNITS/ML Vial SQ SCH (20:30)
[2018-03-07] MEDS: Sod Chloride 0.9% Inj 1,000 ML IV.CONT SCH (20:30)
[2018-03-07] MEDS: Senna/Docusate Sodium 8.6/50 MG Tablet PO SCH (21:38)
[2018-03-08 05:40] LABS: Baso % (Auto) 0.5 % (0.0-2.0); Eos # (Auto) 0.1 th/mm3 (0.0-0.4); Eos % (Auto) 0.9 % (0.0-4.0); Hematocrit 37.4 % (35.0-46.0); Hemoglobin 12.9 gm/dL (11.6-15.3); Lymph # (Auto) 1.5 th/mm3 (1.0-4.8); Mean Corpuscular HGB Conc 34.6 % (32.0-36.0); Mean Corpuscular Hemoglobin 31.1 pg (27.0-34.0); Mean Corpuscular Volume 89.8 fL (80.0-100.0); Mean Platelet Volume 9.1 fL (7.0-11.0); Mono # (Auto) 0.6 th/mm3 (0.0-0.9); Mono % (Auto) 6.3 % (0.0-8.0); Neut # (Auto) 7.3 th/mm3 (1.8-7.7); Neut % (Auto) 76.3 % (16.0-70.0); Platelet Count 121 th/mm3 (150-450); Red Blood Count 4.16 mil/mm3 (4.00-5.30); Red Cell Distribution Width 13.9 % (11.6-17.2); White Blood Count 9.6 th/mm3 (4.0-11.0)
[2018-03-08 06:03] LABS: Carbon Dioxide 25.1 meq/L (21.0-32.0); Potassium 3.9 meq/L (3.5-5.1)
[2018-03-08] MEDS: Heparin - SQ 10,000 UNITS/ML Vial SQ SCH ×2 (08:27→22:00)
[2018-03-08] MEDS: hydrALAZINE 10 MG Tablet PO PRN (08:28)
[2018-03-08] MEDS: Senna/Docusate Sodium 8.6/50 MG Tablet PO SCH ×2 (08:28→22:00)
--- NOTE | 2018-03-08 08:50 | P.PN ---
Subjective Interval history: Follow-up for UTI, dehydration, failure to thrive. Patient reports feeling very sick to her stomach this morning with some nausea, but no vomiting. She denies any abdominal pain. She denies any fevers or chills. She denies any urinary complaints. She reports recent minimal oral intake. She states she has been very weak for a long time now, and has been wheelchair-bound for at least 6 months due to worsening weakness. She states she was living with her daughter, however now the police are trying to locate her. She currently does not further elaborate on her home situation. Physical Exam Vital signs: Vital Signs 03/07/18 16:09 03/07/18 16:45 03/07/18 18:52 Temperature 97.5 F L Pulse Rate 71 57 L 62 Respiratory Rate 16 17 18 Blood Pressure 136/100 H 199/113 H 188/88 H Pulse Oximetry 96 99 99 03/07/18 19:00 03/07/18 20:00 03/08/18 00:00 Temperature 98.8 F Pulse Rate 62 50 L 68 Respiratory Rate 16 16 17 Blood Pressure 177/81 H 160/98 H 140/95 H Pulse Oximetry 97 100 93 L 03/08/18 04:00 03/08/18 08:00 Temperature 98.0 F 97.5 F L Pulse Rate 58 L 62 Respiratory Rate 19 12 Blood Pressure 176/82 H 202/83 H Pulse Oximetry 96 99 Intake & Output 03/07/18 03/08/18 03/08/18 18:59 06:59 18:59 Intake Total 100 / 100 620 / 620 Output Total 250 / 250 Balance 100 / 100 370 / 370 Weight 39.916 kg 53.4 kg Intake: IV 100 / 100 500 / 500 NS Inj 500 ML @ 1000 mls/hr IV. 500 / 500 SIG BOLUS YAIMA Rx#:[id number] Rocephin Inj 1,000 MG In NS Inj 100 / 100 100 ML @ 200 mls/hr IV.SIG ONCE ONE Rx#:[id number] Oral 120 / 120 Output: Urine 250 / 250 Other: # Bowel Movements 0 Weight On Admission 53.2 kg Narrative: GENERAL: Thin elderly pleasant female patient in [facility]. SKIN: Warm and dry. Sacral pressure ulcer, stage 1. HEENT: Normocephalic. Atraumatic. Pupils equal and round. Mucous membranes dry. CARDIOVASCULAR: Regular rate and rhythm. 2/6 systolic murmur. RESPIRATORY: No accessory muscle use. Clear to auscultation. Breath sounds equal bilaterally. GASTROINTESTINAL: Abdomen soft, non-tender, nondistended. Normoactive bowel sounds x4. MUSCULOSKELETAL: No obvious deformities. Extremities without clubbing, cyanosis , or edema. NEUROLOGICAL: Awake and alert. No obvious cranial nerve deficits. Moving all extremities spontaneously, however with generalized weakness. Normal speech. PSYCHIATRIC: Appropriate mood and affect; insight and judgment normal. Results - Labs CBC & Chem 7: 03/08/18 04:41 03/08/18 04:41 Laboratory Results - last 24 hr 03/07/18 03/07/18 03/07/18 16:50 16:55 16:55 WBC 19.0 H RBC 4.61 Hgb 14.6 Hct 42.2 MCV 91.4 MCH 31.8 MCHC 34.7 RDW 13.9 Plt Count 140 L MPV 9.4 Neut % (Auto) 87.9 H Lymph % (Auto) 5.8 L [place]ander % (Auto) 5.6 Eos % (Auto) 0.3 Baso % (Auto) 0.4 Neut # (Auto) 16.7 H Lymph # (Auto) 1.1 [place]ander # (Auto) 1.1 H Eos # (Auto) 0.1 Baso # (Auto) 0.1 WBC Differential . Differential Comment Auto diff final Sodium 139 Potassium 4.3 Chloride 104 Carbon Dioxide 25.6 Anion Gap 9 BUN 53 H Creatinine 1.15 H Estimated GFR 45 L Random Glucose 109 H Lactic Acid Calcium 8.4 L Magnesium 2.6 H Total Bilirubin 0.8 AST 31 ALT 16 Alkaline Phosphatase 88 Total Creatine Kinase 46 Total Protein 7.5 Albumin 2.4 L Lipase 62 L Urine Color Yellow Urine Clarity Cloudy H Urine pH 6.0 Ur Specific [place] 1.017 Urine Protein 500 or greater Urine Glucose (UA) Negative Urine Ketones Trace H Urine Occult Blood Negative Urine Nitrate Negative Urine Bilirubin Negative Urine Urobilinogen Less than 2 Ur Leukocyte Esterase Moderate H Urine RBC 1 Urine WBC 101 H Urine WBC Clumps Moderate H Ur Squamous Epith Cells 1 Urine Bacteria Many H Micro UA Comment Cath-culture ind Ur Microscopic Review Not Reportable Urine Culture Comments Cath-cult indicated 03/07/18 03/08/18 03/08/18 17:35 04:41 04:41 WBC 9.6 RBC 4.16 Hgb 12.9 Hct 37.4 MCV 89.8 MCH 31.1 MCHC 34.6 RDW 13.9 Plt Count 121 L MPV 9.1 Neut % (Auto) 76.3 H Lymph % (Auto) 16.0 [place]ander % (Auto) 6.3 Eos % (Auto) 0.9 Baso % (Auto) 0.5 Neut # (Auto) 7.3 Lymph # (Auto) 1.5 [place]ander # (Auto) 0.6 Eos # (Auto) 0.1 Baso # (Auto) 0.0 WBC Differential . Differential Comment Auto diff final Sodium 143 Potassium 3.9 Chloride 108 H Carbon Dioxide 25.1 Anion Gap 10 BUN 48 H Creatinine 0.90 Estimated GFR 60 L Random Glucose 64 L Lactic Acid 1.3 Calcium 8.0 L Magnesium Total Bilirubin AST ALT Alkaline Phosphatase Total Creatine Kinase Total Protein Albumin Lipase Urine Color Urine Clarity Urine pH Ur Specific [place] Urine Protein Urine Glucose (UA) Urine Ketones Urine Occult Blood Urine Nitrate Urine Bilirubin Urine Urobilinogen Ur Leukocyte Esterase Urine RBC Urine WBC Urine WBC Clumps Ur Squamous Epith Cells Urine Bacteria Micro UA Comment Ur Microscopic Review Urine Culture Comments - Imaging Impressions Abdomen/Pelvis CT 03/07/18 16:54 CONCLUSION: 1. Small pericardial effusion. 2. Cardiomegaly. 3. Distal thoracic aortic aneurysm which is stable compared to the previous examination and measures 3.7 cm in greatest dimension and contains eccentric mural thrombus. 4. Cholelithiasis. 5. Uncomplicated colonic diverticulosis. 6. Tiny bilateral subcentimeter renal cysts. 7. Degenerative changes and scoliosis of the thoracolumbar spine. Chest X-Ray 03/07/18 17:27 CONCLUSION: 1. No acute abnormality or significant interval change. Head CT 03/07/18 19:17 CONCLUSION: 1. Diffuse cerebral atrophy. 2. Periventricular and subcortical white matter small vessel ischemic changes. 3. Old lacunar infarcts are noted within the bilateral basal ganglia and kimbrough radiata. 4. Bilateral pontine ischemic changes are noted. 5. Stable calcified meningioma within the anterior falx measuring 10 mm. 6. No acute infarct, acute hemorrhage, midline shift or extra-axial fluid collections. . Assessment and Plan - Plan 87-year-old female with a past medical history significant for hypertension, hyperlipidemia, history of AAA status post repair in 2016, arthritis, history of TIA and dysphasia presents to the emergency department after being dropped off by her daughter's boyfriend. Per ED notes, the patient's daughter's ex- boyfriend dropped her off saying that he can no longer take care of her and then he has to go to work. Apparently, the daughter dropped patient off at the ex-boyfriend's house. The location of the daughter is not known. Reportedly DCF is involved. UTI: UA with mod leuks, 101 WBCs, many bacteria. +Leukocytosis with WBC 19K. Lactic acid 1.3. -continue on IV Rocephin -give IVF hydration -monitor urine culture -monitor blood culture Failure to Thrive, Inability to Care for Self, Difficulty with ADLs: patient has been wheelchair bound for over 6 months, now appears to be abandoned by her daughter. -consult speech therapy for swallow eval -consult dietitian -add Ensure to meals -monitor Is&Os -consult palliative care -consult PT/OT -case management consulted to assist with discharge planning Accelerated Hypertension: Elevated BPs including 199/113, 202/83 -unclear if patient is on any antihypertensives as home -start Norvasc 5mg daily -hydralazine 10mg q6h prn -monitor BP, adjust antihypertensives as needed Hx of TIA/CVA: chronic -will start patient on baby aspirin daily for stroke prevention -check lipid panel in am Dehydration/ELI: Cr elevated at 1.15, previously Cr 0.9. Patient dry on exam. -give IVF hydration -avoid nephrotoxins -repeat BMP improved with Cr 0.90 DVT Prophylaxis: heparin sq
[2018-03-08] MEDS: Sod Chloride 0.9% Inj 1,000 ML IV.CONT SCH (12:31)
[2018-03-08] MEDS: amLODIPine 5 MG Tablet PO SCH (13:06)
--- NOTE | 2018-03-08 13:29 | P.DIET ---
Nutritional Evaluation Type of nutrition evaluation: initial Nutrition screening: Poor PO Intake, [facility] Screening comments: 03/08 Objective - Diagnosis UTI, Dehydration, leukocytosis - Objective % IBW: 106 (IBW: 110lbs) Body Weight Used for Calculations: Actual (53.4kg) Energy Needs - Lower Range (kCal/kg): 28 Energy Needs - Upper Range (kCal/kg): 33 Lower Limit kCal/kg (kCals): 1,495 Upper Limit kCal/kg (kCals): 1,762 Lower Limit Protein Factor (Grams per Kg): 1.1 Upper Limit Protein Factor (Grams per Kg): 1.3 Lower Protein Needs (Protein): 59 Upper Protein Needs (Protein): 69 Dietitian Reviewed in Medical Record: Current diet, Curent medications, Intake & Output, Labs, Medical history Diet Order: [facility] soft Oral Diet Intake Amount: Poor <50% Objective Comments: PMH: HTN, HLD, AAA s/p repair, Dysphagia, stroke Assessment Assessment: Pt at nutritional risk r/t current clinical status and poor po intake. Her nutritional needs as assessed above. Adequate po intake has not yet been established. Pt is receiving Ensure TID for added nutrition, each bottle contains 250kcals and 9gms protein. Will monitor po intake, clinical course for pt. Recommendations: [facility] soft diet with Ensure TID Dietitian to Monitor: Lab values, Supplement acceptance, Intake & Output, Weight change, PO Intake, Medical course
--- NOTE | 2018-03-08 15:48 | ECHRPT ---
Indication: Heart failure, unspecified CONCLUSIONS The left ventricular systolic function is normal with an estimated ejection fraction in the range of 55-60%. Wall thickness is normal. Normal left ventricular size. Trace mitral valve regurgitation. There is moderate tricuspid regurgitation. The estimated pulmonary arterial pressure is 41.6 mmHg. Mild aortic valve stenosis. BP: / HR: Rhythm: Sinus MEASUREMENTS (Male / Female) Normal Values Technical Quality:Good 2D ECHO LV Diastolic Diameter PLAX 4.0 cm 4.2 - 5.9 / 3.9 - 5.3 cm LV Systolic Diameter PLAX 3.0 cm IVS Diastolic Thickness 0.9 cm 0.6 - 1.0 / 0.6 - 0.9 cm LVPW Diastolic Thickness 0.9 cm 0.6 - 1.0 / 0.6 - 0.9 cm LV Relative Wall Thickness 0.5 LVOT Diameter 1.8 cm M-MODE Aortic Root Diameter MM 2.6 cm LA Systolic Diameter MM 2.8 cm LA Ao Ratio MM 1.1 AV Cusp Separation MM 1.5 cm DOPPLER AV Peak Velocity 255.8 cm/s AV Peak Gradient 26.2 mmHg AV Mean Gradient 16.0 mmHg AV Velocity Time Integral 59.2 cm LVOT Peak Velocity 114.0 cm/s LVOT Peak Gradient 5.2 mmHg AV Area Cont Eq pk 1.1 cm MR Peak Velocity 327.0 cm/s MR Peak Gradient 42.8 mmHg Mitral E Point Velocity 100.0 cm/s Mitral A Point Velocity 124.0 cm/s Mitral E to A Ratio 0.8 LV E' Lateral Velocity 5.4 cm/s Mitral E to LV E' Lateral Ratio 18.7 LV E' Septal Velocity 4.6 cm/s Mitral E to LV E' Septal Ratio 21.8 TR Peak Velocity 281.0 cm/s TR Peak Gradient 31.6 mmHg Right Atrial Pressure 10.0 mmHg Pulmonary Artery Systolic Pressu 41.6 mmHg Right Ventricular Systolic Press 41.6 mmHg PV Peak Velocity 126.0 cm/s PV Peak Gradient 6.4 mmHg FINDINGS LEFT VENTRICLE The left ventricular systolic function is normal with an estimated ejection fraction in the range of 55-60%. Wall thickness is normal. Normal left ventricular size. RIGHT VENTRICLE Normal right ventricular size and systolic function. LEFT ATRIUM The left atrial size is normal. RIGHT ATRIUM The right atrial size is normal. ATRIAL SEPTUM Normal atrial septal thickness without atrial level shunting by limited color doppler interrogation. AORTA The aortic root and proximal ascending aorta are normal in size on limited imaging. MITRAL VALVE Trace mitral valve regurgitation. AORTIC VALVE Mild aortic valve stenosis. TRICUSPID VALVE There is moderate tricuspid regurgitation. The estimated pulmonary arterial pressure is 41.6 mmHg. PULMONARY VALVE No pulmonary valve regurgitation or stenosis. VESSELS The inferior vena cava is normal in size. PERICARDIUM No pericardial effusion. Angel Garcia MD, FACC, [facility] (Electronically Signed) Final Date:08 March 2018 15:47
[2018-03-09] MEDS: Sod Chloride 0.9% Inj 1,000 ML IV.CONT SCH ×2 (02:41→17:24)
[2018-03-09 07:28] LABS: Baso # (Auto) 0.1 th/mm3 (0.0-0.2); Eos # (Auto) 0.1 th/mm3 (0.0-0.4); Eos % (Auto) 1.2 % (0.0-4.0); Hematocrit 30.8 % (35.0-46.0); Hemoglobin 10.7 gm/dL (11.6-15.3); Lymph # (Auto) 1.4 th/mm3 (1.0-4.8); Lymph % (Auto) 19.5 % (9.0-44.0); Mean Corpuscular HGB Conc 34.8 % (32.0-36.0); Mean Corpuscular Hemoglobin 31.6 pg (27.0-34.0); Mean Corpuscular Volume 90.8 fL (80.0-100.0); Mean Platelet Volume 9.2 fL (7.0-11.0); Mono # (Auto) 0.4 th/mm3 (0.0-0.9); Mono % (Auto) 6.4 % (0.0-8.0); Neut % (Auto) 71.9 % (16.0-70.0); Platelet Count 132 th/mm3 (150-450); Red Blood Count 3.39 mil/mm3 (4.00-5.30); Red Cell Distribution Width 13.8 % (11.6-17.2)
[2018-03-09] MEDS: Heparin - SQ 10,000 UNITS/ML Vial SQ SCH ×2 (07:36→19:56)
[2018-03-09 07:44] LABS: Calcium 7.5 mg/dL (8.5-10.1); Carbon Dioxide 23.6 meq/L (21.0-32.0); Potassium 3.7 meq/L (3.5-5.1)
[2018-03-09 07:47] LABS: Chol/HDL Ratio 5.91 Ratio; HDL Cholesterol 22.3 mg/dL (40.0-60.0)
--- NOTE | 2018-03-09 08:15 | P.PN ---
Subjective Interval history: Follow-up for UTI, weakness, dehydration, neglect, malnutrition. Patient reports continued generalized weakness today. She reports not eating very well recently due to poor appetite. She denies any fevers or chills. She denies any urinary complaints today. Denies any abdominal pain, nausea/vomiting, or diarrhea. She states she still has not been able to get a hold of her daughter. She is agreeable to rehab placement if this can be arranged. Physical Exam Vital signs: Vital Signs 03/08/18 12:00 03/08/18 12:57 03/08/18 15:42 Temperature 97.3 F L 97.5 F L Pulse Rate 55 L 58 L 61 Respiratory Rate 12 20 Blood Pressure 139/63 123/62 Pulse Oximetry 92 L 98 03/08/18 20:00 03/08/18 23:44 03/09/18 04:00 Temperature 97.6 F 98.4 F 97.9 F Pulse Rate 60 63 58 L Respiratory Rate 17 18 16 Blood Pressure 120/72 122/64 118/57 L Pulse Oximetry 98 97 95 03/09/18 07:28 Temperature 98.3 F Pulse Rate 55 L Respiratory Rate 16 Blood Pressure 117/56 L Pulse Oximetry 96 Intake & Output 03/08/18 03/09/18 03/09/18 18:59 06:59 18:59 Intake Total 2075 / 2075 1000 / 1000 480 / 480 Output Total 350 / 350 400 / 400 Balance 1725 / 1725 1000 / 1000 80 / 80 Weight 53.4 kg Intake: IV 1100 / 1100 1000 / 1000 NS Inj 1,000 ML @ 70 mls/hr IV. 1000 / 1000 1000 / 1000 CONT .[id number] [facility] Rx#:[id number] Rocephin Inj 2,000 MG In NS Inj 100 / 100 100 ML @ 200 mls/hr IV.SIG Q24H [facility] Rx#:[id number] Oral 500 / 500 480 / 480 Other 475 / 475 Output: Urine 350 / 350 400 / 400 Other: Date of Last Bowel Movement 03/07/18 03/07/18 Narrative: GENERAL: Thin elderly pleasant female patient in NAD. SKIN: Warm and dry. Sacral pressure ulcer, stage 1. HEENT: Normocephalic. Atraumatic. Pupils equal and round. Mucous membranes dry. CARDIOVASCULAR: Regular rate and rhythm. 2/6 systolic murmur. RESPIRATORY: No accessory muscle use. Clear to auscultation. Breath sounds equal bilaterally. GASTROINTESTINAL: Abdomen soft, non-tender, nondistended. Normoactive bowel sounds x4. MUSCULOSKELETAL: No obvious deformities. Extremities without clubbing, cyanosis , or edema. NEUROLOGICAL: Awake and alert. No obvious cranial nerve deficits. Moving all extremities spontaneously, however with generalized weakness. Normal speech. PSYCHIATRIC: Appropriate mood and affect; insight and judgment normal. Results - Labs CBC & Chem 7: 03/09/18 06:32 03/09/18 06:32 Laboratory Results - last 24 hr 03/07/18 03/09/18 03/09/18 16:50 06:32 06:32 WBC 7.0 RBC 3.39 L Hgb 10.7 L D Hct 30.8 L MCV 90.8 MCH 31.6 MCHC 34.8 RDW 13.8 Plt Count 132 L MPV 9.2 Neut % (Auto) 71.9 H Lymph % (Auto) 19.5 [place] % (Auto) 6.4 Eos % (Auto) 1.2 Baso % (Auto) 1.0 Neut # (Auto) 5.0 Lymph # (Auto) 1.4 [place] # (Auto) 0.4 Eos # (Auto) 0.1 Baso # (Auto) 0.1 WBC Differential . Differential Comment Auto diff final Sodium 143 Potassium 3.7 Chloride 112 H Carbon Dioxide 23.6 Anion Gap 7 BUN 35 H Creatinine 0.73 Estimated GFR 76 L Random Glucose 83 Calcium 7.5 L Triglycerides 135 Cholesterol 132 LDL Cholesterol, Calc 83 HDL Cholesterol 22.3 L Cholesterol/HDL Ratio 5.91 Urine Color Yellow Urine Clarity Cloudy H Urine pH 6.0 Ur Specific [place] 1.017 Urine Protein 500 or greater Urine Glucose (UA) Negative Urine Ketones Trace H Urine Occult Blood Negative Urine Nitrate Negative Urine Bilirubin Negative Urine Urobilinogen Less than 2 Ur Leukocyte Esterase Moderate H Urine RBC 1 Urine WBC 101 H Urine WBC Clumps Moderate H Ur Squamous Epith Cells 1 Urine Bacteria Many H Micro UA Comment Cath-culture ind Urine Culture Comments Cath-cult indicated Microbiology 03/07/18 16:50 Catheterized Urine Urine Culture - Preliminary gram negative rods 03/07/18 17:30 Blood - Peripheral Aerobic Blood Culture - Preliminary No growth in 1 day 03/07/18 17:30 Blood - Peripheral Anaerobic Blood Culture - Preliminary No growth in 1 day 03/07/18 17:35 Blood - Peripheral Aerobic Blood Culture - Preliminary No growth in 1 day 03/07/18 17:35 Blood - Peripheral Anaerobic Blood Culture - Preliminary No growth in 1 day - Imaging Abdomen/Pelvis CT 03/07/18 16:54 CONCLUSION: 1. Small pericardial effusion. 2. Cardiomegaly. 3. Distal thoracic aortic aneurysm which is stable compared to the previous examination and measures 3.7 cm in greatest dimension and contains eccentric mural thrombus. 4. Cholelithiasis. 5. Uncomplicated colonic diverticulosis. 6. Tiny bilateral subcentimeter renal cysts. 7. Degenerative changes and scoliosis of the thoracolumbar spine. Chest X-Ray 03/07/18 17:27 CONCLUSION: 1. No acute abnormality or significant interval change. Head CT 03/07/18 19:17 CONCLUSION: 1. Diffuse cerebral atrophy. 2. Periventricular and subcortical white matter small vessel ischemic changes. 3. Old lacunar infarcts are noted within the bilateral basal ganglia and kimbrough radiata. 4. Bilateral pontine ischemic changes are noted. 5. Stable calcified meningioma within the anterior falx measuring 10 mm. 6. No acute infarct, acute hemorrhage, midline shift or extra-axial fluid collections. . Assessment and Plan - Plan 87-year-old female with a past medical history significant for hypertension, hyperlipidemia, history of AAA status post repair in 2016, arthritis, history of TIA and dysphasia presents to the emergency department after being dropped off by her daughter's boyfriend. Per ED notes, the patient's daughter's ex- boyfriend dropped her off saying that he can no longer take care of her and then he has to go to work. Apparently, the daughter dropped patient off at the ex-boyfriend's house. The location of the daughter is not known. Reportedly DCF is involved. UTI: UA with mod leuks, 101 WBCs, many bacteria. +Leukocytosis with WBC 19K. Lactic acid 1.3. -continue on IV Rocephin -give IVF hydration -Urine culture with E. coli Questionable bacteremia: 2/4 blood cultures with gram-positive organism -Repeat blood cultures ordered -Consulted ID -Discussed with Dr. Cortez, will hold off on further antibiotics at this time and monitor repeat blood cultures Failure to Thrive/Neglect, Inability to Care for Self, Difficulty with ADLs: patient has been wheelchair bound for over 6 months, now appears to be abandoned by her daughter. -consult speech therapy for swallow eval, recommends mechanical soft with thin liquids -consult dietitian, appreciate assistance -add Ensure to meals -monitor Is&Os -consult PT/OT, recommending rehab -consult palliative care, appreciate assistance -case management consulted to assist with discharge planning, DCF involved Accelerated Hypertension: Elevated BPs including 199/113, 202/83 -unclear if patient is on any antihypertensives as home -started Norvasc 5mg daily -hydralazine 10mg q6h prn -monitor BP, adjust antihypertensives as needed -BP much improved today, currently 137/62 Hx of TIA/CVA: chronic -Head CT shows diffuse small vessel ischemic changes, old lacunar infarcts -started patient on baby aspirin daily for stroke prevention -checked lipid panel, Cholesterol 132, LDL 83, will recommend diet control for now Dehydration/ELI: Cr elevated at 1.15, previously Cr 0.9. Patient dry on exam. -give IVF hydration -avoid nephrotoxins -repeat BMP improved with Cr 0.73 -monitor Is&Os DVT Prophylaxis: heparin sq
[2018-03-09] MEDS: Senna/Docusate Sodium 8.6/50 MG Tablet PO SCH ×2 (09:29→20:15)
[2018-03-09] MEDS: amLODIPine 5 MG Tablet PO SCH (09:29)
--- NOTE | 2018-03-09 10:23 | P.CONPAL ---
Consult Service: Palliative Care Requesting Physician: Keely Hazel Reason for Consult: a. To assist with evaluation and management of symptoms including: Weakness, nausea b. To assist medical decision maker(s) with: better understanding of current medical conditions; weighing benefits/burdens of medical treatment options; making medical treatment decisions. Primary Care Provider: UNKNOWN History of Present Illness History of Present Illness: This is an 87-year-old female who was abandoned at the emergency department by her daughter's ex-boyfriend who stated he could no longer take care of her. The daughter had apparently dropped her mother off at her ex-boyfriend's house and left. Neither were available for discussion on admission. Patient was wearing a diaper that was caked with dried feces and reported she had not eaten in the past week. Her presenting complaint was of abdominal pain and some pain in her thighs. She was found to have a stage I ulcer on the sacrum and bruising in various degrees of healing. Law enforcement was contacted and DCF report filed. Diagnostic data on admission: * WBC 19.0, hemoglobin 14.6, hematocrit 42.2, platelets 140, sodium 139, potassium 4.3, BUN 53, creatinine 1.15, glucose 109, lactic acid 1.3. * Urinalysis showed a cloudy yellow specimen with a pH of 6.0, specific gravity 1.017, protein 500 or greater, trace ketones, moderate leukocyte esterase, many bacteria. * CT of the abdomen and pelvis showed a small pericardial effusion, cardiomegaly , distal thoracic aortic aneurysm, stable compared to previous examination, 3.7 cm in greatest dimension eccentric mural thrombus. Cholelithiasis uncomplicated colonic diverticulosis, tiny bilateral subcentimeter renal, degenerative changes and scoliosis of the thoracolumbar spine. * Chest x-ray shows no acute abnormality or significant interval change. * Head CT showed diffuse cerebral atrophy with periventricular and subcortical white matter small vessel ischemic changes. Old lacunar infarcts noted within the bilateral basal ganglia and kimbrough radiata. Bilateral pontine ischemic changes, stable, calcified meningioma within the anterior falx measuring 10 mm. No acute infarct, acute hemorrhage, midline shift or extra-axial fluid collections. 2D echocardiogram was obtained showing a normal ejection fraction in the range of 55-60% with moderate tricuspid regurgitation and pulmonary artery pressure of 41.6 mmHg, equating to moderate pulmonary hypertension. She was evaluated by physical therapy and found cooperative but at a creased risk of falling due to compromised balance and altered gait. She is overall weak from a multitude of sources to include chronic osteoarthritis pain, malnutrition, sedentary status. She has been in a wheelchair for approximately 6 months with minimal ambulatory ability. She does have some ability to move herself around in bed but was found to be very weak physical therapy evaluation. At this evaluation she complains of poor appetite weight loss and some nausea, mild, constant, worsening with exertion or activity. She is able to tolerate Ensure. She is receiving IV fluid rehydration. At most she was 145 pounds in November 2017, on this evaluation is 117 pounds, a loss of 28 pounds in 3 months. She also states she has not had anything to eat for a week. Past medical history AAA 3.7 cm in greatest dimension with eccentric mural thrombus hyperlipidemia Dysphagia Hypertension Stroke/TIA UTI Arthritis Past surgical history AAA repair 08/2015 Appendectomy Left hip surgery Social history Positive tobacco use No history of alcohol use No prescription or illicit drug abuse. Family history Sister had an FL at the age of 90, otherwise healthy family.. Function/Cognitive Trajectory: She has been steadily declining and has lost nearly 20 pounds since her admission in October 2017. She was previously able to use a walker but is now increasingly relying on her wheelchair. She was found to be globally weak with poor balance by physical therapy. PT at rehab has been recommended. . Review of Systems Constitutional: Reports weakness, Reports weight loss Gastrointestinal: Reports nausea PMFSH - History History Provided By: Patient - Medical History Medical History: Medical History (Last Reviewed 03/09/18 @ 14:03 by Mckay Evans) AAA (abdominal aortic aneurysm) (Acute) Hyperlipidemia Dysphagia History of hysterectomy Hypertension Stroke UTI (urinary tract infection) - Surgical History Surgical History: Surgical History (Last Reviewed 03/09/18 @ 14:03 by Mckay Evans) Status post AAA (abdominal aortic aneurysm) repair Status post appendectomy Status post hip surgery - Family History Family History: Family History (Last Updated 03/07/18 @ 19:48 by Lavonne Astorga MD) Other Diabetes mellitus - Tobacco History Second Hand Smoke Exposure: Yes Tobacco Use In Past 30 Days: Yes Smoking Status: Current every day smoker Tobacco Type: Cigarettes - Alcohol History How Often Do You Have a Drink Containing Alcohol: Never - Substance Use History Substance History: No History of Abuse - Travel History Recent Travel in the [place] Within the Last 8 Weeks: No Recent Travel Out of the Country Within the Last 8 Weeks: No - Immunization History Tetanus Immunization: Unsure Medications and Allergies Active Medications: Active Medications Acetaminophen (Tylenol) 650 mg PO Q4H PRN PRN Reason: Temp > 100.4 Al Hydroxide/Mg Hydroxide (Milk Of Magnesia Liq) 30 ml PO Q12H PRN PRN Reason: Mild Constipation Amlodipine Besylate (Norvasc) 5 mg PO DAILY [facility] Last Admin: 03/09/18 09:29 Dose: 5 mg Aspirin (Ecotrin) 81 mg PO DAILY [facility] Last Admin: 03/09/18 09:29 Dose: 81 mg Bisacodyl (Dulcolax Supp) 10 mg RECTAL DAILY PRN PRN Reason: SEVERE CONSITIPATION Heparin Sodium (Porcine) (Heparin Inj) 5,000 units SQ Q12H [facility] Last Admin: 03/09/18 07:36 Dose: 5,000 units Hydralazine HCl (Apresoline) 10 mg PO Q8H PRN PRN Reason: SBP>160, DBP>90 Last Admin: 03/08/18 08:28 Dose: 10 mg Ceftriaxone Sodium 2,000 mg/ (Sodium Chloride) 100 mls @ 200 mls/hr IV.SIG Q24H [facility] Last Infusion: 03/08/18 18:16 Dose: Infused Sodium Chloride (Ns Inj) 1,000 mls @ 70 mls/hr IV.CONT .[id number] [facility] Last Admin: 03/09/18 02:41 Dose: 70 mls/hr Lactulose (Lactulose Liq) 30 ml PO DAILY PRN PRN Reason: SEVERE CONSITIPATION Ondansetron HCl (Zofran Inj) 4 mg IV.PUSH Q6H PRN PRN Reason: NAUSEA OR VOMITING Senna/Docusate Sodium (Louise-Colace) 1 tab PO BID [facility] Last Admin: 03/09/18 09:29 Dose: Not Given Sennosides (Senokot) 17.2 mg PO Q12H PRN PRN Reason: Moderate Constipation Sodium Chloride (Ns Flush) 2 ml IV.FLUSH PRN PRN PRN Reason: FLUSH AFTER USING IV ACCESS Sodium Chloride (Ns Flush) 2 ml IV.FLUSH BID [facility] Last Admin: 03/09/18 09:29 Dose: Not Given Sodium Chloride (Ns Flush) 2 ml IV.FLUSH PRN PRN PRN Reason: FLUSH AFTER USING IV ACCESS Allergies Allergy/AdvReac Type Severity Reaction Status Date / Time vancomycin Allergy Intermediate Rash Verified 01/31/18 15:29 codeine AdvReac Severe "Makes me Verified 01/31/18 15:29 want to climb the [place]" Home Medications Medication Instructions Recorded Confirmed Type No Known Home Medications 01/31/18 03/10/18 History Advance Directives Living Will: No Healthcare Surrogate: No Power of Manager Flight Operations: No Physical Exam Vital Signs: Vital Signs - 24 hr 03/08/18 12:00 03/08/18 12:57 03/08/18 15:42 Temperature 97.3 F L 97.5 F L Pulse Rate 55 L 58 L 61 Respiratory Rate 12 20 Blood Pressure 139/63 123/62 Pulse Oximetry 92 L 98 03/08/18 20:00 03/08/18 23:44 03/09/18 04:00 Temperature 97.6 F 98.4 F 97.9 F Pulse Rate 60 63 58 L Respiratory Rate 17 18 16 Blood Pressure 120/72 122/64 118/57 L Pulse Oximetry 98 97 95 03/09/18 07:28 Temperature 98.3 F Pulse Rate 55 L Respiratory Rate 16 Blood Pressure 117/56 L Pulse Oximetry 96 I&O: Intake & Output 03/07/18 03/08/18 03/09/18 03/10/18 06:59 06:59 06:59 06:59 Intake Total 720 / 720 3075 / 3075 480 / 480 Output Total 250 / 250 350 / 350 400 / 400 Balance 470 / 470 2725 / 2725 80 / 80 Weight 117 lb 11.629 oz 117 lb 11.629 oz Physical Exam: CONSTITUTIONAL/GENERAL: This is an elderly, thin female lying in bed in no acute distress. TUBES/LINES/DRAINS: PIV SKIN: No jaundice, rashes, or lesions. Ecchymoses on upper and lower extremities. No wounds seen anteriorly. Skin temperature appropriate. Not diaphoretic. HEAD: Atraumatic. Normocephalic. EYES: Pupils equal and round and reactive. Extraocular motions intact. No scleral icterus. No injection or drainage. Fundi not examined. ENT: Hearing grossly normal. Nose without bleeding or purulent drainage. Throat without visible erythema, exudates, masses, or lesions. NECK: Trachea midline. Supple, nontender. No palpable thyroid enlargement or nodularity. CARDIOVASCULAR: Regular rate and rhythm with 2/6 systolic ejection murmur, without gallops, or rubs. No JVD. Peripheral pulses symmetric. RESPIRATORY/CHEST: Symmetric, unlabored respirations. Clear to auscultation. Breath sounds equal bilaterally. No wheezes, rales, or rhonchi. GASTROINTESTINAL: Abdomen soft, non-tender, nondistended. No hepato-splenomegaly , or palpable masses. No guarding. Bowel sounds present. GENITOURINARY: Without palpable bladder distension. MUSCULOSKELETAL: Extremities without clubbing, cyanosis, or edema. No joint tenderness or effusion noted. No calf tenderness. No mottling. Multiple ecchymosis on bilateral lower extremities. LYMPHATICS: No palpable cervical or supraclavicular adenopathy. NEUROLOGICAL: Arousable, oriented to self, place. Motor and sensory grossly within normal limits. Follows commands. Moves all extremities. PSYCHIATRIC: No obvious anxiety/depression. no apparent hallucinations or other psychotic thought process. . Diagnostic Tests Laboratory: Laboratory Results - last 72 hr 03/07/18 03/07/18 03/07/18 16:50 16:55 16:55 WBC 19.0 H RBC 4.61 Hgb 14.6 Hct 42.2 MCV 91.4 MCH 31.8 MCHC 34.7 RDW 13.9 Plt Count 140 L MPV 9.4 Neut % (Auto) 87.9 H Lymph % (Auto) 5.8 L Gray % (Auto) 5.6 Eos % (Auto) 0.3 Baso % (Auto) 0.4 Neut # (Auto) 16.7 H Lymph # (Auto) 1.1 Gray # (Auto) 1.1 H Eos # (Auto) 0.1 Baso # (Auto) 0.1 WBC Differential . Differential Comment Auto diff final Sodium 139 Potassium 4.3 Chloride 104 Carbon Dioxide 25.6 Anion Gap 9 BUN 53 H Creatinine 1.15 H Estimated GFR 45 L Random Glucose 109 H Lactic Acid Calcium 8.4 L Magnesium 2.6 H Total Bilirubin 0.8 AST 31 ALT 16 Alkaline Phosphatase 88 Total Creatine Kinase 46 Total Protein 7.5 Albumin 2.4 L Triglycerides Cholesterol LDL Cholesterol, Calc HDL Cholesterol Cholesterol/HDL Ratio Lipase 62 L Urine Color Yellow Urine Clarity Cloudy H Urine pH 6.0 Ur Specific [place] 1.017 Urine Protein 500 or greater Urine Glucose (UA) Negative Urine Ketones Trace H Urine Occult Blood Negative Urine Nitrate Negative Urine Bilirubin Negative Urine Urobilinogen Less than 2 Ur Leukocyte Esterase Moderate H Urine RBC 1 Urine WBC 101 H Urine WBC Clumps Moderate H Ur Squamous Epith Cells 1 Urine Bacteria Many H Micro UA Comment Cath-culture ind Ur Microscopic Review Not Reportable Urine Culture Comments Cath-cult indicated 03/07/18 03/08/18 03/08/18 17:35 04:41 04:41 WBC 9.6 RBC 4.16 Hgb 12.9 Hct 37.4 MCV 89.8 MCH 31.1 MCHC 34.6 RDW 13.9 Plt Count 121 L MPV 9.1 Neut % (Auto) 76.3 H Lymph % (Auto) 16.0 Gray % (Auto) 6.3 Eos % (Auto) 0.9 Baso % (Auto) 0.5 Neut # (Auto) 7.3 Lymph # (Auto) 1.5 Gray # (Auto) 0.6 Eos # (Auto) 0.1 Baso # (Auto) 0.0 WBC Differential . Differential Comment Auto diff final Sodium 143 Potassium 3.9 Chloride 108 H Carbon Dioxide 25.1 Anion Gap 10 BUN 48 H Creatinine 0.90 Estimated GFR 60 L Random Glucose 64 L Lactic Acid 1.3 Calcium 8.0 L Magnesium Total Bilirubin AST ALT Alkaline Phosphatase Total Creatine Kinase Total Protein Albumin Triglycerides Cholesterol LDL Cholesterol, Calc HDL Cholesterol Cholesterol/HDL Ratio Lipase Urine Color Urine Clarity Urine pH Ur Specific [place] Urine Protein Urine Glucose (UA) Urine Ketones Urine Occult Blood Urine Nitrate Urine Bilirubin Urine Urobilinogen Ur Leukocyte Esterase Urine RBC Urine WBC Urine WBC Clumps Ur Squamous Epith Cells Urine Bacteria Micro UA Comment Ur Microscopic Review Urine Culture Comments 03/09/18 03/09/18 06:32 06:32 WBC 7.0 RBC 3.39 L Hgb 10.7 L D Hct 30.8 L MCV 90.8 MCH 31.6 MCHC 34.8 RDW 13.8 Plt Count 132 L MPV 9.2 Neut % (Auto) 71.9 H Lymph % (Auto) 19.5 Gray % (Auto) 6.4 Eos % (Auto) 1.2 Baso % (Auto) 1.0 Neut # (Auto) 5.0 Lymph # (Auto) 1.4 Gray # (Auto) 0.4 Eos # (Auto) 0.1 Baso # (Auto) 0.1 WBC Differential . Differential Comment Auto diff final Sodium 143 Potassium 3.7 Chloride 112 H Carbon Dioxide 23.6 Anion Gap 7 BUN 35 H Creatinine 0.73 Estimated GFR 76 L Random Glucose 83 Lactic Acid Calcium 7.5 L Magnesium Total Bilirubin AST ALT Alkaline Phosphatase Total Creatine Kinase Total Protein Albumin Triglycerides 135 Cholesterol 132 LDL Cholesterol, Calc 83 HDL Cholesterol 22.3 L Cholesterol/HDL Ratio 5.91 Lipase Urine Color Urine Clarity Urine pH Ur Specific [place] Urine Protein Urine Glucose (UA) Urine Ketones Urine Occult Blood Urine Nitrate Urine Bilirubin Urine Urobilinogen Ur Leukocyte Esterase Urine RBC Urine WBC Urine WBC Clumps Ur Squamous Epith Cells Urine Bacteria Micro UA Comment Ur Microscopic Review Urine Culture Comments Result Diagrams: 03/10/18 11:53 03/10/18 10:09 Microbiology: Microbiology 03/07/18 17:35 Aerobic Blood Culture - Preliminary Blood - Peripheral Anaerobic Blood Culture - Preliminary No growth in 1 day 03/07/18 17:30 Aerobic Blood Culture - Preliminary Blood - Peripheral Anaerobic Blood Culture - Preliminary No growth in 1 day 03/07/18 16:50 Urine Culture - Preliminary Catheterized Urine gram negative rods Imaging: Abdomen/Pelvis CT 03/07/18 16:54 CONCLUSION: 1. Small pericardial effusion. 2. Cardiomegaly. 3. Distal thoracic aortic aneurysm which is stable compared to the previous examination and measures 3.7 cm in greatest dimension and contains eccentric mural thrombus. 4. Cholelithiasis. 5. Uncomplicated colonic diverticulosis. 6. Tiny bilateral subcentimeter renal cysts. 7. Degenerative changes and scoliosis of the thoracolumbar spine. Chest X-Ray 03/07/18 17:27 CONCLUSION: 1. No acute abnormality or significant interval change. Head CT 03/07/18 19:17 CONCLUSION: 1. Diffuse cerebral atrophy. 2. Periventricular and subcortical white matter small vessel ischemic changes. 3. Old lacunar infarcts are noted within the bilateral basal ganglia and kimbrough radiata. 4. Bilateral pontine ischemic changes are noted. 5. Stable calcified meningioma within the anterior falx measuring 10 mm. 6. No acute infarct, acute hemorrhage, midline shift or extra-axial fluid collections. . Patient/Family Conference Present at Family Conference: Patient's daughter has abandoned the patient at her ex-boyfriend's who brought the patient to the hospital and have not been reachable. Telephone call to daughterCathryn's given number returns a message that the phone is not in service. Spoke with patient's friend/contact, Liudmila, who provided a number for her daughter, Zoraida. Reviewed palliative care purpose and focus as well as the below listed items. Provided palliative care contact information. All questions answered to the best of my ability. 18:07 pm - Spoke with patient's daughter's, Zoraida and Mary who confirmed the information given by Liudmila and after discussion, determined that they would not want their mother resuscitated and that she should be a DNR. I requested a call from their brother, Melvin Riggs, and sister, Khushboo, to confirm that status , as [place] Statutes require a majority of adult children for decision making. 18:48 pm - Spoke with patient's son, Melvin Riggs, who confirmed that he also felt the DNR status was appropriate. 19:11 pm - received a text from Khushboo Cohn who also agrees with DNR status. Discussed with all 4 children what discharge plans they felt were appropriate and they all wanted her to come back up to [place] to live near family. They are making plans to come down and get her when she is appropriate for discharge. Will rediscuss on Sunday 03/11 once medical team can estimate discharge date. . Family Conference Location: Bedside Issues Discussed: * Palliative care role, purpose, approach * Additional medical, psychosocial, and spiritual history * Patients general health, functional status, and cognitive changes in the months leading up to the current hospitalization * Patient/family understanding of the current medical problems * Patient/family understanding of prognosis * Patients goals of care as best understood from advance directives and/or conversations and/or values * Current medical treatment options and benefits/burdens of those options * Likely scenarios comparing ongoing aggressive care with a transition to comfort measures only * Questions answered to the best of my ability * Palliative care contact information provided Assessment and Plan - Disease Oriented Problem List (1) UTI (urinary tract infection) (2) Dehydration (3) Leukocytosis (4) AAA (abdominal aortic aneurysm) Comment: with sx (5) Poor appetite Pertinent Non-Medical Issues: Psychosocial: Patient was born in [facility]. She was and had 4 daughters. She has been living with the daughter in [place], Cathryn Khalil. She has 3 other daughters up in the [facility] area. Pets are family too is pending for further contact. Spoke with her friend, Liudmila mcclellan, who provided me with the daughter, Zoraida'sidney number . Pending return call. Spiritual: Beef [employer] available. Legal: No advance directives pleaded. Ethical issues impacting care: Patient was abandoned by the daughter at her ex- boyfriend's home and he brought the patient to the hospital. Patient appeared neglected with soiled diaper with dried excrement, stage I sacral ulcer and stating she had not eaten for a week. DCF has been contacted and is following. Attempts continue to locate her remaining 3 daughters. . Important Contacts: Daughter: Cathryn Khalil (not a working number) Daughter: Khushboo Cohn Daughter: Mary Riggs (left message) Daughter: Zoraida Begum [place], Son: Melvin Riggs . Prognosis: Her prognosis is guarded. She has an E. coli UTI for which she is receiving Rocephin. She is weak, malnourished with frequent falls. Plan is for placement in [facility] facility for rehabilitative services and likely convert to long-term. Attempts continue to locate family members for support. Addendum: contacted family who all agree that DNR status is appropriate. Family is planning to come bring her back to [place] where the remainder of her children live. . Code Status: No Code DNR Plan: PLAN: Legal decision maker: Patient is partially oriented but has poor insight into her medical condition and does not appear to be capacitated for decision- making. Attempting to find family at this time. We have been unable to contact patient's daughter, Cathryn at the provided number, which is not working. Obtained a number for her daughter Zoraida in [place] from her friend Liudmila and left message. Liudmila has also attempted to contact her but has not received a return call. Accurints is pending. At this time we do not have a decision- maker. Her friend Liudmila Mcclellan said she would be willing to serve as a decision maker if no family can be contacted. ADDENDUM: Family contacted and willing to participate. Decision makers will be Zoraida Begum, Mary Riggs, Khushboo Cohn and Melvin Riggs, until the 5th child, Cathryn Khalil can be contacted. Goals: Comfort oriented. CODE STATUS: DO NOT RESUSCITATE SYMPTOMS: * Weakness: She is globally weak, likely secondary to multiple factors to include dehydration, malnutrition, urinary tract infection. Physical therapy has evaluated and is recommending PT at rehab. Placement efforts in progress. * Poor appetite: She has very poor appetite and according to past visit records , has declined in weight from a maximum of 145 to her current weight of 117 pounds since November 2017. Would recommend an appetite stimulant, such as Remeron at at bedtime, as this may involve a component of depression as well. Palliative care will continue to follow the patient during hospital course as condition evolves, to assist patient/decision-maker with understanding of their medical conditions, weighing benefits/burdens of treatment options, for clarification of goals of treatment. Additionally will assist with any symptoms of palliative concern. . Appreciation Thank you for the opportunity to participate in the care of [facility]. Attestation Attestation: To help prompt me to consider important information that might be impacting today's encounter and assessment, information from prior notes written by myself or my colleagues may have been "brought forward" into today's note. My signature on this note, however, is an attestation that I personally performed the exam, history, and/or decision-making noted today, and, unless otherwise indicated, the interactions with patient, family, and staff as well as the review of records all occurred today. I also attest that the listed assessment and stated plan reflect my best clinical judgment today based on the combination of historical information, prior notes, and today's exam/ interactions. When time spent is documented, it refers only to time spent today by the signer, or if indicated, combined time spent today by collaborating physician/nurse practitioner. .
--- NOTE | 2018-03-09 12:02 | P.CONID ---
History of Present Illness Service: Infectious Disease Consult date: 03/09/18 Requesting Physician: Keely Hazel Reason for Consult: Evaluation and Mment of Bacteremia and UTI Primary Care Provider: UNKNOWN History of Present Illness: Most of the history was obtained by review of medical records. Ms. López is an 87-year-old female who was reportedly dropped off at the emergency department by her daughters ex-boyfriend who could not take care of her. Patient was reportedly wearing a diaper that was caked with dried feces on admission. Patient reportedly had not eaten in almost a week. On admission she had reported abdominal pain as well as pain in her thighs. DCF report has been filed. She underwent an extensive evaluation in the emergency department. Her WBC was noted to be 19.0, hemoglobin 14.6, hematocrit 42.2 and platelets 140. Her sodium was 139 potassium 4.3, creatinine 1.15 and lactic acid 1.3. Her UA was abnormal and reflex to culture. A CT of the abdomen pelvis showed small pericardial effusion, cardiomegaly, distal thoracic aortic aneurysm which was stable compared to prior exams. She also was noted to have cholelithiasis, colonic diverticulosis and scoliosis of the thoracolumbar spine. Chest x-ray showed no acute abnormality. Head CT showed diffuse cerebral atrophy with periventricular and subcortical white matter small vessel ischemic changes. Old lacunar infarcts in bilateral basal ganglia and coronary radiate over noted. No fluid collections or midline shift noted. A 2D echo was done which showed normal EF of 55-60% with moderate tricuspid regurgitation and moderate pulmonary hypertension. Physical therapy has reportedly been working with her and patient has balance as well as gait issues. Sepsis workup sent on admission she was 1 out of 4 bottles positive for gram- positive cocci. Urine culture was positive for E. coli but patient denies any symptoms. 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 Lives with her daughter. Daughter dropped her at ex boy friends place. ? Wheel chair bound. Family history Sister had an AR at the age of 90, otherwise healthy family. Details could not be obtained. Review of Systems unobtainable due to mental condition PMFSH - History History Provided By: Patient - Medical History Medical History: Medical History (Last Reviewed 03/09/18 @ 11:22 by Pebbles Mckeon [employer] A[employer], [employer]) AAA (abdominal aortic aneurysm) (Acute) Hyperlipidemia Dysphagia History of hysterectomy Hypertension Stroke UTI (urinary tract infection) - Surgical History Surgical History: Surgical History (Last Reviewed 03/09/18 @ 08:43 by Magdy Gunn) Status post AAA (abdominal aortic aneurysm) repair Status post appendectomy Status post hip surgery - Family History Family History: Family History (Last Updated 03/07/18 @ 19:48 by Lavonne Astorga MD) Other Diabetes mellitus - Tobacco History Second Hand Smoke Exposure: Yes Tobacco Use In Past 30 Days: Yes Smoking Status: Current every day smoker Tobacco Type: Cigarettes - Alcohol History How Often Do You Have a Drink Containing Alcohol: Never - Substance Use History Substance History: No History of Abuse - Travel History Recent Travel in the [facility] Within the Last 8 Weeks: No Recent Travel Out of the Country Within the Last 8 Weeks: No - Immunization History Tetanus Immunization: Unsure Medications and Allergies Active Medications: Active Medications Acetaminophen (Tylenol) 650 mg PO Q4H PRN PRN Reason: Temp > 100.4 Al Hydroxide/Mg Hydroxide (Milk Of Magnalex Liq) 30 ml PO Q12H PRN PRN Reason: Mild Constipation Amlodipine Besylate (Norvasc) 5 mg PO DAILY [facility] Last Admin: 03/09/18 09:29 Dose: 5 mg Aspirin (Ecotrin) 81 mg PO DAILY [facility] Last Admin: 03/09/18 09:29 Dose: 81 mg Bisacodyl (Dulcolax Supp) 10 mg RECTAL DAILY PRN PRN Reason: SEVERE CONSITIPATION Heparin Sodium (Porcine) (Heparin Inj) 5,000 units SQ Q12H [facility] Last Admin: 03/09/18 07:36 Dose: 5,000 units Hydralazine HCl (Apresoline) 10 mg PO Q8H PRN PRN Reason: SBP>160, DBP>90 Last Admin: 03/08/18 08:28 Dose: 10 mg Ceftriaxone Sodium 2,000 mg/ (Sodium Chloride) 100 mls @ 200 mls/hr IV.SIG Q24H [facility] Stop: 03/13/18 20:00 Last Infusion: 03/08/18 18:16 Dose: Infused Sodium Chloride (Ns Inj) 1,000 mls @ 70 mls/hr IV.CONT .[id number] [facility] Last Admin: 03/09/18 02:41 Dose: 70 mls/hr Lactulose (Lactulose Liq) 30 ml PO DAILY PRN PRN Reason: SEVERE CONSITIPATION Ondansetron HCl (Zofran Inj) 4 mg IV.PUSH Q6H PRN PRN Reason: NAUSEA OR VOMITING Senna/Docusate Sodium (Louise-Colace) 1 tab PO BID [facility] Last Admin: 03/09/18 09:29 Dose: Not Given Sennosides (Senokot) 17.2 mg PO Q12H PRN PRN Reason: Moderate Constipation Sodium Chloride (Ns Flush) 2 ml IV.FLUSH PRN PRN PRN Reason: FLUSH AFTER USING IV ACCESS Sodium Chloride (Ns Flush) 2 ml IV.FLUSH BID [facility] Last Admin: 03/09/18 09:29 Dose: Not Given Sodium Chloride (Ns Flush) 2 ml IV.FLUSH PRN PRN PRN Reason: FLUSH AFTER USING IV ACCESS Allergies Allergy/AdvReac Type Severity Reaction Status Date / Time vancomycin Allergy Intermediate Rash Verified 01/31/18 15:29 codeine AdvReac Severe "Makes me Verified 01/31/18 15:29 want to climb the [place]" Home Medications Medication Instructions Recorded Confirmed Type No Known Home Medications 01/31/18 03/07/18 History Exam Vital signs: Vital Signs 03/08/18 12:57 03/08/18 15:42 03/08/18 20:00 Temperature 97.5 F L 97.6 F Pulse Rate 58 L 61 60 Respiratory Rate 20 17 Blood Pressure 123/62 120/72 Pulse Oximetry 98 98 03/08/18 23:44 03/09/18 04:00 03/09/18 07:28 Temperature 98.4 F 97.9 F 98.3 F Pulse Rate 63 58 L 55 L Respiratory Rate 18 16 16 Blood Pressure 122/64 118/57 L 117/56 L Pulse Oximetry 97 95 96 03/09/18 09:25 Temperature Pulse Rate 50 L Respiratory Rate Blood Pressure Pulse Oximetry Intake & Output 03/08/18 03/09/18 03/09/18 18:59 06:59 18:59 Intake Total 2075 / 2075 1000 / 1000 480 / 480 Output Total 350 / 350 400 / 400 Balance 1725 / 1725 1000 / 1000 80 / 80 Weight 53.4 kg Intake: IV 1100 / 1100 1000 / 1000 NS Inj 1,000 ML @ 70 mls/hr IV. 1000 / 1000 1000 / 1000 CONT .[id number] [facility] Rx#:[id number] Rocephin Inj 2,000 MG In NS Inj 100 / 100 100 ML @ 200 mls/hr IV.SIG Q24H [facility] Rx#:[id number] Oral 500 / 500 480 / 480 Other 475 / 475 Output: Urine 350 / 350 400 / 400 Other: Date of Last Bowel Movement 03/07/18 03/07/18 03/09/18 Narrative: GENERAL: Well-nourished well-developed, not in acute distress SKIN: Bruising noted all over the body. HEAD: Atraumatic. Normocephalic. No temporal or scalp tenderness. EYES: Pupils equal round and reactive. Scleral icterus. No injection or drainage. No petechia ENT: Nothing abnormal detected NECK: Trachea midline. Supple, nontender, no meningeal signs. CARDIOVASCULAR: HS audible. RESPIRATORY: Clear to auscultation bilaterally. GASTROINTESTINAL: Abdomen soft nontender. MUSCULOSKELETAL: Extremities without clubbing, cyanosis. NEUROLOGICAL: Alert oriented 3. Nonfocal. Psych cooperative IV line sites ok. Results - Labs CBC & Chem 7: 03/09/18 06:32 03/09/18 06:32 Labs: Laboratory Results - last 24 hr 03/07/18 03/09/18 03/09/18 16:50 06:32 06:32 WBC 7.0 RBC 3.39 L Hgb 10.7 L D Hct 30.8 L MCV 90.8 MCH 31.6 MCHC 34.8 RDW 13.8 Plt Count 132 L MPV 9.2 Neut % (Auto) 71.9 H Lymph % (Auto) 19.5 Dickens % (Auto) 6.4 Eos % (Auto) 1.2 Baso % (Auto) 1.0 Neut # (Auto) 5.0 Lymph # (Auto) 1.4 Dickens # (Auto) 0.4 Eos # (Auto) 0.1 Baso # (Auto) 0.1 WBC Differential . Differential Comment Auto diff final Sodium 143 Potassium 3.7 Chloride 112 H Carbon Dioxide 23.6 Anion Gap 7 BUN 35 H Creatinine 0.73 Estimated GFR 76 L Random Glucose 83 Calcium 7.5 L Triglycerides 135 Cholesterol 132 LDL Cholesterol, Calc 83 HDL Cholesterol 22.3 L Cholesterol/HDL Ratio 5.91 Urine Color Yellow Urine Clarity Cloudy H Urine pH 6.0 Ur Specific [place] 1.017 Urine Protein 500 or greater Urine Glucose (UA) Negative Urine Ketones Trace H Urine Occult Blood Negative Urine Nitrate Negative Urine Bilirubin Negative Urine Urobilinogen Less than 2 Ur Leukocyte Esterase Moderate H Urine RBC 1 Urine WBC 101 H Urine WBC Clumps Moderate H Ur Squamous Epith Cells 1 Urine Bacteria Many H Micro UA Comment Cath-culture ind Urine Culture Comments Cath-cult indicated - Imaging Abdomen/Pelvis CT 03/07/18 16:54 CONCLUSION: 1. Small pericardial effusion. 2. Cardiomegaly. 3. Distal thoracic aortic aneurysm which is stable compared to the previous examination and measures 3.7 cm in greatest dimension and contains eccentric mural thrombus. 4. Cholelithiasis. 5. Uncomplicated colonic diverticulosis. 6. Tiny bilateral subcentimeter renal cysts. 7. Degenerative changes and scoliosis of the thoracolumbar spine. Chest X-Ray 03/07/18 17:27 CONCLUSION: 1. No acute abnormality or significant interval change. Head CT 03/07/18 19:17 CONCLUSION: 1. Diffuse cerebral atrophy. 2. Periventricular and subcortical white matter small vessel ischemic changes. 3. Old lacunar infarcts are noted within the bilateral basal ganglia and kimbrough radiata. 4. Bilateral pontine ischemic changes are noted. 5. Stable calcified meningioma within the anterior falx measuring 10 mm. 6. No acute infarct, acute hemorrhage, midline shift or extra-axial fluid collections. . Assessment and Plan - Plan SIRS present on admission (hypothermia, leucocytosis) rule out sepsis. Gram positive bacteremia: 1 out of 4 bottles doubt significance E. coli UTI present on admission Acute metabolic encephalopathy: sepsis, preexisting dementia Malnutrition, failure to thrive ? Neglect (recommend group home placement) Multi infarct vs senile dementia Recs: Continue Ceftriaxone IV for now. Will hold off on IV Vanco for now as clinically stable and doubt significance of GP bacteremia. Repeat blood cultures Follow cultures follow clinical course dolly mackey Hepas dolly RN for patient.
--- NOTE | 2018-03-09 12:27 | P.DIET ---
Nutritional Evaluation Type of nutrition evaluation: follow-up ([facility] Malnutrition) Nutrition screening: Poor PO Intake, [facility] Screening comments: 03/08 Objective - Diagnosis UTI, Dehydration, leukocytosis - Objective % IBW: 106 (IBW: 110lbs) Body Weight Used for Calculations: Actual (53.4kg) Energy Needs - Lower Range (kCal/kg): 28 Energy Needs - Upper Range (kCal/kg): 33 Lower Limit kCal/kg (kCals): 1,495 Upper Limit kCal/kg (kCals): 1,762 Lower Limit Protein Factor (Grams per Kg): 1.1 Upper Limit Protein Factor (Grams per Kg): 1.3 Lower Protein Needs (Protein): 59 Upper Protein Needs (Protein): 69 Dietitian Reviewed in Medical Record: Current diet, Curent medications, Intake & Output, Labs, Medical history Diet Order: [facility] soft Oral Diet Intake Amount: Poor <50% Objective Comments: PMH: HTN, HLD, AAA s/p repair, Dysphagia, stroke Assessment Assessment: [facility] malnutrition; Pt remains at nutritional risk r/t current clinical status and poor po intake. Spoke with RN who reports that pt refused her tray this morning but she drank all of her Ensure supplement. Pt reported that she enjoys drinking Ensure but she is too "stuffed" to eat any other food. At this time I will recommend to change her supplement to Ensure Enlive to provide her with additional calories and protein. Each bottle of Ensure Enlive will provide 350kcal and 20g protein. If medically appropriate, would consider appetite stimulant to encourage increased PO intake. Please continue with assistance with supplements and encourage PO intake at mealtime. Will monitor PO intake, supplement acceptance and clinical course. Recommendations: 1. Ensure Enlive TID 2. Encourage PO intake 3. Consider appetite stimulant if medically appropriate Dietitian to Monitor: Lab values, Supplement acceptance, Intake & Output, Weight change, PO Intake, Medical course
[2018-03-10] MEDS: Sod Chloride 0.9% Inj 1,000 ML IV.CONT SCH ×2 (06:01→21:20)
[2018-03-10] MEDS: Heparin - SQ 10,000 UNITS/ML Vial SQ SCH ×2 (08:29→21:19)
[2018-03-10] MEDS: Senna/Docusate Sodium 8.6/50 MG Tablet PO SCH ×2 (08:30→21:19)
[2018-03-10] MEDS: amLODIPine 5 MG Tablet PO SCH (08:30)
[2018-03-10 11:00] LABS: Calcium 7.4 mg/dL (8.5-10.1); Carbon Dioxide 25.9 meq/L (21.0-32.0); Potassium 3.6 meq/L (3.5-5.1)
[2018-03-10 11:07] LABS: Albumin 1.7 g/dL (3.4-5.0); Calcium-Albumin Corrected 9.2 mg/dL (8.5-10.1)
[2018-03-10 12:25] LABS: Baso # (Auto) 0.1 th/mm3 (0.0-0.2); Baso % (Auto) 0.8 % (0.0-2.0); Eos # (Auto) 0.1 th/mm3 (0.0-0.4); Eos % (Auto) 1.2 % (0.0-4.0); Hematocrit 34.5 % (35.0-46.0); Hemoglobin 11.6 gm/dL (11.6-15.3); Lymph # (Auto) 1.3 th/mm3 (1.0-4.8); Mean Corpuscular HGB Conc 33.5 % (32.0-36.0); Mean Corpuscular Hemoglobin 30.7 pg (27.0-34.0); Mean Corpuscular Volume 91.7 fL (80.0-100.0); Mean Platelet Volume 8.8 fL (7.0-11.0); Mono # (Auto) 0.4 th/mm3 (0.0-0.9); Mono % (Auto) 5.6 % (0.0-8.0); Neut # (Auto) 5.1 th/mm3 (1.8-7.7); Neut % (Auto) 73.4 % (16.0-70.0); Platelet Count 145 th/mm3 (150-450); Red Blood Count 3.76 mil/mm3 (4.00-5.30); Red Cell Distribution Width 14.3 % (11.6-17.2)
--- NOTE | 2018-03-10 13:59 | P.PNIM ---
Subjective Interval history: Patient seen lying in bed. Tells me that she did drink her Ensure today but was otherwise not very hungry. No she needs to eat more. No other complaints or concerns; noted to be a somewhat poor historian. Nursing reports no adverse events. Physical Exam Vital signs: Last Vital Signs Temp 97.8 F 03/10/18 11:46 Pulse 61 03/10/18 11:46 Resp 16 03/10/18 11:46 BP 127/63 03/10/18 11:46 Pulse Ox 96 03/10/18 11:46 Intake & Output 03/08/18 03/09/18 03/10/18 03/11/18 06:59 06:59 06:59 06:59 Intake Total 720 / 720 3075 / 3075 2900 / 2900 Output Total 250 / 250 350 / 350 820 / 820 Balance 470 / 470 2725 / 2725 2079 / 2079 Weight 53.4 kg 53.4 kg 53.4 kg Narrative: GENERAL: Well-nourished, well-developed adult female in no obvious distress. SKIN: Warm and dry. HEAD: Atraumatic. Normocephalic. CARDIOVASCULAR: Regular rate and rhythm. RESPIRATORY: No accessory muscle use. Clear to auscultation. Breath sounds equal bilaterally. GASTROINTESTINAL: Abdomen soft, non-tender, non-distended. Positive bowel sounds. MUSCULOSKELETAL: Extremities without clubbing, cyanosis, or edema. No obvious deformities. NEUROLOGICAL: Awake and alert. No obvious cranial nerve deficits. Motor grossly within normal limits. Normal speech. Results Labs CBC & Chem 7: 03/10/18 11:53 03/10/18 10:09 Labs: Microbiology 03/09/18 13:21 Blood - Peripheral Aerobic Blood Culture - Preliminary No growth in 1 day 03/09/18 13:21 Blood - Peripheral Anaerobic Blood Culture - Preliminary No growth in 1 day 03/09/18 13:26 Blood - Peripheral Aerobic Blood Culture - Preliminary No growth in 1 day 03/09/18 13:26 Blood - Peripheral Anaerobic Blood Culture - Preliminary No growth in 1 day 03/07/18 17:30 Blood - Peripheral Aerobic Blood Culture - Preliminary 03/07/18 17:30 Blood - Peripheral Anaerobic Blood Culture - Preliminary No growth in 3 days 03/07/18 17:35 Blood - Peripheral Aerobic Blood Culture - Preliminary 03/07/18 17:35 Blood - Peripheral Anaerobic Blood Culture - Preliminary No growth in 3 days 03/07/18 16:50 Catheterized Urine Urine Culture - Final Escherichia coli Assessment and Plan Plan 87-year-old female with a past medical history significant for hypertension, hyperlipidemia, history of AAA status post repair in 2016, arthritis, history of TIA and dysphasia presents to the emergency department after being dropped off by her daughter's boyfriend. Per ED notes, the patient's daughter's ex- boyfriend dropped her off saying that he can no longer take care of her and then he has to go to work. Apparently, the daughter dropped patient off at the ex-boyfriend's house. The location of the daughter is not known. Reportedly DCF is involved. UTI: UA with mod leuks, 101 WBCs, many bacteria. +Leukocytosis with WBC 19K. Lactic acid 1.3. -continue on IV Rocephin -give IVF hydration -Urine culture with E. coli; monitor sensitivity Questionable bacteremia: 2/4 blood cultures with gram-positive organism -Repeat blood cultures ordered; no growth to date -Consulted ID -Discussed with Dr. Cortez, will hold off on further antibiotics at this time and monitor repeat blood cultures Failure to Thrive/Neglect, Inability to Care for Self, Difficulty with ADLs: patient has been wheelchair bound for over 6 months, now appears to be abandoned by her daughter. -consult speech therapy for swallow eval, recommends mechanical soft with thin liquids -consult dietitian, appreciate assistance -add Ensure to meals -monitor Is&Os -consult PT/OT, recommending rehab -consult palliative care, appreciate assistance. Added Remeron as suggested for both depression and appetite. -case management consulted to assist with discharge planning, DCF involved Accelerated Hypertension: Elevated BPs including 199/113, 202/83 -unclear if patient is on any antihypertensives as home -started Norvasc 5mg daily -hydralazine 10mg q6h prn -monitor BP, adjust antihypertensives as needed Hx of TIA/CVA: chronic -Head CT shows diffuse small vessel ischemic changes, old lacunar infarcts -started patient on baby aspirin daily for stroke prevention -checked lipid panel, Cholesterol 132, LDL 83, will recommend diet control for now Dehydration/ELI: Cr elevated at 1.15, previously Cr 0.9. Patient initially dry on exam. -give IVF hydration -avoid nephrotoxins -repeat BMP improved with Cr 0.73 -monitor Is&Os DVT Prophylaxis: heparin sq
[2018-03-10] MEDS: Mirtazapine 15 MG Tablet PO SCH (21:19)
[2018-03-11] MEDS: hydrALAZINE 10 MG Tablet PO PRN ×2 (00:52→21:36)
[2018-03-11] MEDS: amLODIPine 5 MG Tablet PO SCH (09:21)
[2018-03-11] MEDS: Heparin - SQ 10,000 UNITS/ML Vial SQ SCH ×2 (09:22→21:04)
[2018-03-11] MEDS: Senna/Docusate Sodium 8.6/50 MG Tablet PO SCH (09:22)
[2018-03-11] MEDS: Sod Chloride 0.9% Inj 1,000 ML IV.CONT SCH (12:14)
--- NOTE | 2018-03-11 16:42 | P.PNIM ---
Subjective Interval history: Patient is seen lying in bed. She tells me she feels much better. No new shortness of breath or chest pain. No nausea vomiting or diarrhea. Nursing reports no adverse events. Physical Exam Vital signs: Last Vital Signs Temp 98.5 F 03/11/18 15:37 Pulse 70 03/11/18 15:37 Resp 12 03/11/18 15:37 BP 196/91 H 03/11/18 15:37 Pulse Ox 98 03/11/18 15:37 Intake & Output 03/09/18 03/10/18 03/11/18 03/12/18 06:59 06:59 06:59 06:59 Intake Total 3075 / 3075 2900 / 2900 1100 / 1100 1000 / 1000 Output Total 350 / 350 820 / 820 Balance 2725 / 2725 2080 / 2080 1100 / 1100 1000 / 1000 Weight 53.4 kg 53.4 kg Narrative: GENERAL: Well-nourished, well-developed adult female in no obvious distress. SKIN: Warm and dry. HEAD: Atraumatic. Normocephalic. CARDIOVASCULAR: Regular rate and rhythm. RESPIRATORY: No accessory muscle use. Clear to auscultation. Breath sounds equal bilaterally. GASTROINTESTINAL: Abdomen soft, non-tender, non-distended. Positive bowel sounds. MUSCULOSKELETAL: Extremities without clubbing, cyanosis, or edema. No obvious deformities. NEUROLOGICAL: Awake and alert. No obvious cranial nerve deficits. Motor grossly within normal limits. Normal speech. Results Labs CBC & Chem 7: 03/10/18 11:53 03/10/18 10:09 Labs: Microbiology 03/09/18 13:21 Blood - Peripheral Aerobic Blood Culture - Preliminary No growth in 2 days 03/09/18 13:21 Blood - Peripheral Anaerobic Blood Culture - Preliminary No growth in 2 days 03/09/18 13:26 Blood - Peripheral Aerobic Blood Culture - Preliminary No growth in 2 days 03/09/18 13:26 Blood - Peripheral Anaerobic Blood Culture - Preliminary No growth in 2 days 03/07/18 17:30 Blood - Peripheral Aerobic Blood Culture - Preliminary gram negative rods pleomorphic gram positive rods 03/07/18 17:30 Blood - Peripheral Anaerobic Blood Culture - Preliminary No growth in 4 days 03/07/18 17:35 Blood - Peripheral Aerobic Blood Culture - Preliminary 03/07/18 17:35 Blood - Peripheral Anaerobic Blood Culture - Preliminary No growth in 4 days Assessment and Plan Plan 87-year-old female with a past medical history significant for hypertension, hyperlipidemia, history of AAA status post repair in 2016, arthritis, history of TIA and dysphasia presents to the emergency department after being dropped off by her daughter's boyfriend. Per ED notes, the patient's daughter's ex- boyfriend dropped her off saying that he can no longer take care of her and then he has to go to work. Apparently, the daughter dropped patient off at the ex-boyfriend's house. The location of the daughter is not known. Reportedly DCF is involved. UTI: UA with mod leuks, 101 WBCs, many bacteria. +Leukocytosis with WBC 19K. Lactic acid 1.3. -continue on IV Rocephin -give IVF hydration -Urine culture with E. coli; monitor sensitivity Questionable bacteremia: 2/4 blood cultures with gram-positive organism -Repeat blood cultures ordered; no growth to date -Consulted ID. Discussed with Dr. Cortez, will hold off on further antibiotics at this time and monitor repeat blood cultures Failure to Thrive/Neglect, Inability to Care for Self, Difficulty with ADLs: patient has been wheelchair bound for over 6 months, now appears to be abandoned by her daughter. -consult speech therapy for swallow eval, recommends mechanical soft with thin liquids -consult dietitian, appreciate assistance -add Ensure to meals -monitor Is&Os -consult PT/OT, recommending rehab -consult palliative care, appreciate assistance. Added Remeron as suggested for both depression and appetite. -case management consulted to assist with discharge planning, DCF involved Accelerated Hypertension: Elevated BPs including 199/113, 202/83 -unclear if patient is on any antihypertensives as home -started Norvasc 5mg daily -hydralazine 10mg q6h prn -monitor BP, adjust antihypertensives as needed Hx of TIA/CVA: chronic -Head CT shows diffuse small vessel ischemic changes, old lacunar infarcts -started patient on baby aspirin daily for stroke prevention -checked lipid panel, Cholesterol 132, LDL 83, will recommend diet control for now Dehydration/ELI: Cr elevated at 1.15, previously Cr 0.9. Patient initially dry on exam. -give IVF hydration -avoid nephrotoxins -repeat BMP improved with Cr 0.73 -monitor Is&Os DVT Prophylaxis: heparin sq
--- NOTE | 2018-03-11 17:28 | P.PNPAL ---
Reason for Visit Reason for visit: a. To assist with evaluation and management of symptoms including: Weakness, confusion, poor appetite b. To assist medical decision maker(s) with: better understanding of current medical conditions; weighing benefits/burdens of medical treatment options; making medical treatment decisions. Subjective Subjective/Interval History: This is an 87-year-old female who was abandoned at the emergency department by her daughter's ex-boyfriend who stated he could no longer take care of her. The daughter had apparently dropped her mother off at her ex-boyfriend's house and left. Neither were available for discussion on admission. Patient was wearing a diaper that was caked with dried feces and reported she had not eaten in the past week. Her presenting complaint was of abdominal pain and some pain in her thighs. She was found to have a stage I ulcer on the sacrum and bruising in various degrees of healing. Law enforcement was contacted and DCF report filed. Patient seen today for follow-up for symptom management of weakness, confusion, poor appetite and goals of medical treatment. Patient remains confused with very poor insight into her health condition. She is aware that she is at the hospital but cannot remember which one in spite of multiple reminders and does not know which she states she is in. She cannot say where she lives but knows it is 2017. She knows she has children but does not understand that her daughter, Cathryn, with whom she previously lived, has left her at the hospital and has made no further contact. She is generally weak and has been wheelchair-bound for the prior 6 months. She complains of pain to both feet and legs when bearing weight and states that she can only ambulate a couple of feet with a walker. Physical therapy is recommending PT at rehab. She has improved with bed mobility with therapy but otherwise remains bedbound. Her lunch tray is seen at bedside with a few bites taken but she states she does not like the food. She is happy to drink Ensure supplements but ate only 2 or 3 bites of her lunch. Nurse confirms that this is been consistent with all meals. Remeron has been added for appetite stimulation. There may be an element of depression involved in her loss of appetite. . Family/Friend Interactions: Spoke with her daughter, Zoraida, who lives in [place] and with whom the patient previously lived. Family is making plans to drive to [place] and pick her up and bring her back to [place] where she can be cared for. At this time placement is in progress and she is being transferred to [facility] for rehabilitation, which will allow family a little time to make travel plans and arrange for her care. Also discussed with adult protective caseworker, Arcelia Duran, concerns of the patient's friend, Liudmila, that the daughter, Cathryn, had taken the patient to [employer] and had her check deposit changed to a different bank because their previous account had been overdrawn for 2 months according to the patient's conversation with Liudmila. This is of concern because the patient is confused and at this time has no access to her funds, as her daughter, Cathryn, has her debit card. . Objective Vital Signs: Vital Signs 03/10/18 19:50 03/10/18 20:00 03/11/18 00:00 Temperature 98.2 F 97.5 F L Pulse Rate 57 L 52 L 58 L Respiratory Rate 18 17 Blood Pressure 123/59 L 180/81 H Pulse Oximetry 99 96 03/11/18 04:00 03/11/18 08:00 03/11/18 12:00 Temperature 97.4 F L 98.1 F 97.5 F L Pulse Rate 57 L 66 65 Respiratory Rate 18 16 20 Blood Pressure 186/81 H 226/88 H 173/78 H Pulse Oximetry 97 97 97 03/11/18 15:37 Temperature 98.5 F Pulse Rate 70 Respiratory Rate 12 Blood Pressure 196/91 H Pulse Oximetry 98 Intake & Output 03/10/18 03/11/18 03/11/18 18:59 06:59 18:59 Intake Total 100 / 100 1000 / 1000 1000 / 1000 Balance 100 / 100 1000 / 1000 1000 / 1000 Intake: IV 100 / 100 1000 / 1000 1000 / 1000 NS Inj 1,000 ML @ 70 mls/hr IV. 1000 / 1000 1000 / 1000 CONT .[id number] YAIMA Rx#:[id number] Rocephin Inj 2,000 MG In NS Inj 100 / 100 100 ML @ 200 mls/hr IV.SIG Q24H YAIMA Rx#:[id number] Other: Date of Last Bowel Movement 03/11/18 Physical Exam: CONSTITUTIONAL/GENERAL: This is an elderly, thin female lying in bed in no acute distress. TUBES/LINES/DRAINS: PIV CARDIOVASCULAR: Regular rate and rhythm with 2/6 systolic ejection murmur, without gallops, or rubs. No JVD. Peripheral pulses symmetric. RESPIRATORY/CHEST: Symmetric, unlabored respirations. Clear to auscultation. Breath sounds equal bilaterally. No wheezes, rales, or rhonchi. GASTROINTESTINAL: Abdomen soft, non-tender, nondistended. No hepato-splenomegaly , or palpable masses. No guarding. Bowel sounds present. GENITOURINARY: Without palpable bladder distension. MUSCULOSKELETAL: Extremities without clubbing, cyanosis, or edema. No joint tenderness or effusion noted. No calf tenderness. No mottling. Multiple ecchymosis on bilateral lower extremities. NEUROLOGICAL: Arousable, oriented to self, knows she is in the hospital. Motor and sensory grossly within normal limits. Follows commands. Moves all extremities. PSYCHIATRIC: Somewhat flat affect. no apparent hallucinations or other psychotic thought process. . Diagnostic Tests Laboratory: Laboratory Results - last 72 hr 03/09/18 03/09/18 03/10/18 06:32 06:32 10:09 WBC 7.0 RBC 3.39 L Hgb 10.7 L D Hct 30.8 L MCV 90.8 MCH 31.6 MCHC 34.8 RDW 13.8 Plt Count 132 L MPV 9.2 Neut % (Auto) 71.9 H Lymph % (Auto) 19.5 Yell % (Auto) 6.4 Eos % (Auto) 1.2 Baso % (Auto) 1.0 Neut # (Auto) 5.0 Lymph # (Auto) 1.4 Yell # (Auto) 0.4 Eos # (Auto) 0.1 Baso # (Auto) 0.1 WBC Differential . Differential Comment Auto diff final Sodium 143 145 Potassium 3.7 3.6 Chloride 112 H 112 H Carbon Dioxide 23.6 25.9 Anion Gap 7 7 BUN 35 H 20 H Creatinine 0.73 0.80 Estimated GFR 76 L 68 L Random Glucose 83 104 Calcium 7.5 L 7.4 L* Calcium Adj for Albumin 9.2 Albumin 1.7 L Triglycerides 135 Cholesterol 132 LDL Cholesterol, Calc 83 HDL Cholesterol 22.3 L Cholesterol/HDL Ratio 5.91 03/10/18 11:53 WBC 7.0 RBC 3.76 L Hgb 11.6 Hct 34.5 L MCV 91.7 MCH 30.7 MCHC 33.5 RDW 14.3 Plt Count 145 L MPV 8.8 Neut % (Auto) 73.4 H Lymph % (Auto) 19.0 Yell % (Auto) 5.6 Eos % (Auto) 1.2 Baso % (Auto) 0.8 Neut # (Auto) 5.1 Lymph # (Auto) 1.3 Yell # (Auto) 0.4 Eos # (Auto) 0.1 Baso # (Auto) 0.1 WBC Differential . Differential Comment Auto diff final Sodium Potassium Chloride Carbon Dioxide Anion Gap BUN Creatinine Estimated GFR Random Glucose Calcium Calcium Adj for Albumin Albumin Triglycerides Cholesterol LDL Cholesterol, Calc HDL Cholesterol Cholesterol/HDL Ratio Result Diagrams: 03/10/18 11:53 03/10/18 10:09 Microbiology: Microbiology 03/09/18 13:21 Aerobic Blood Culture - Preliminary Blood - Peripheral No growth in 2 days Anaerobic Blood Culture - Preliminary No growth in 2 days 03/09/18 13:26 Aerobic Blood Culture - Preliminary Blood - Peripheral No growth in 2 days Anaerobic Blood Culture - Preliminary No growth in 2 days 03/07/18 17:30 Aerobic Blood Culture - Preliminary Blood - Peripheral gram negative rods pleomorphic gram positive rods Anaerobic Blood Culture - Preliminary No growth in 4 days 03/07/18 17:35 Aerobic Blood Culture - Preliminary Blood - Peripheral Anaerobic Blood Culture - Preliminary No growth in 4 days 03/07/18 16:50 Urine Culture - Final Catheterized Urine Escherichia coli Imaging: ITS Impressions Abdomen/Pelvis CT 03/07/18 16:54 CONCLUSION: 1. Small pericardial effusion. 2. Cardiomegaly. 3. Distal thoracic aortic aneurysm which is stable compared to the previous examination and measures 3.7 cm in greatest dimension and contains eccentric mural thrombus. 4. Cholelithiasis. 5. Uncomplicated colonic diverticulosis. 6. Tiny bilateral subcentimeter renal cysts. 7. Degenerative changes and scoliosis of the thoracolumbar spine. Chest X-Ray 03/07/18 17:27 CONCLUSION: 1. No acute abnormality or significant interval change. Head CT 03/07/18 19:17 CONCLUSION: 1. Diffuse cerebral atrophy. 2. Periventricular and subcortical white matter small vessel ischemic changes. 3. Old lacunar infarcts are noted within the bilateral basal ganglia and kimbrough radiata. 4. Bilateral pontine ischemic changes are noted. 5. Stable calcified meningioma within the anterior falx measuring 10 mm. 6. No acute infarct, acute hemorrhage, midline shift or extra-axial fluid collections. . Assessment and Plan - Disease Oriented Problem List (1) Confusion (2) Dehydration (3) Leukocytosis (4) Nausea (5) Poor appetite (6) UTI (urinary tract infection) (7) Weakness (8) AAA (abdominal aortic aneurysm) Comment: with sx Pertinent Non-Medical Issues: Psychosocial: Patient was born in [facility]. She was and had 4 daughters. She has been living with the daughter in [place], Cathryn Khalil. She has 3 other daughters up in the [facility] area. [facility] is pending for further contact. Spoke with her friend, Liudmila mendez, who provided me with the daughter, Zoraida's number . Pending return call. Spiritual: [employer] available. Legal: No advance directives pleaded. Ethical issues impacting care: Patient was abandoned by the daughter at her ex- boyfriend's home and he brought the patient to the hospital. Patient appeared neglected with soiled diaper with dried excrement, stage I sacral ulcer and stating she had not eaten for a week. DCF has been contacted and is following. Attempts continue to locate her remaining 3 daughters. . Important Contacts: Daughter: Cathryn Khalil (not a working number) Daughter: Khushboo Cohn Daughter: Mary Rgigs (left message) Daughter: Zoraida Begum [place], Son: Melvin Riggs . Prognosis: Her prognosis is guarded. She has an E. coli UTI for which she is receiving Rocephin. She is weak, malnourished with frequent falls. Plan is for placement in residential facility for rehabilitative services and likely convert to long-term. Attempts continue to locate family members for support. Addendum: contacted family who all agree that DNR status is appropriate. Family is planning to come bring her back to [place] where the remainder of her children live. . Code Status: No Code DNR Plan: PLAN: Legal decision maker: Patient is partially oriented but has poor insight into her medical condition and does not appear to be capacitated for decision- making. amily contacted and willing to participate. Decision makers will be Zoraida Begum, Mary Riggs, Khushboo Cohn and Melvin Riggs, until the 5th child, Cathryn Khalil can be contacted. Goals: Comfort oriented. CODE STATUS: DO NOT RESUSCITATE SYMPTOMS: * Weakness: She is globally weak, likely secondary to multiple factors to include dehydration, malnutrition, urinary tract infection. Physical therapy has evaluated and is recommending PT at rehab. Plan to be placed at [facility] today or tomorrow. * Poor appetite: She has very poor appetite and according to past visit records , has declined in weight from a maximum of 145 to her current weight of 117 pounds since November 2017. Currently receiving Remeron at at bedtime for appetite stimulation and sleep. Drinking Ensure but eating very little of her meals. No further recommendations at this time. * Confusion: She remains confused, not certain of this date or hospital that she is in. She appears oriented to self and does have some recollection of her family. She appears to have very poor insight into her health status and does not appear capacitated for decision-making this time. Her children in [place] and [place] have been located and are making plans to come to [place] and bring her back to [place] where they can provide her care. Pending that event , plans are to transfer her to [facility] for rehabilitation. That information has been provided to the family. Palliative care will continue to follow the patient during hospital course as condition evolves, to assist patient/decision-maker with understanding of their medical conditions, weighing benefits/burdens of treatment options, for clarification of goals of treatment. Additionally will assist with any symptoms of palliative concern. . Attestation Attestation: To help prompt me to consider important information that might be impacting today's encounter and assessment, information from prior notes written by myself or my colleagues may have been "brought forward" into today's note. My signature on this note, however, is an attestation that I personally performed the exam, history, and/or decision-making noted today, and, unless otherwise indicated, the interactions with patient, family, and staff as well as the review of records all occurred today. I also attest that the listed assessment and stated plan reflect my best clinical judgment today based on the combination of historical information, prior notes, and today's exam/ interactions. When time spent is documented, it refers only to time spent today by the signer, or if indicated, combined time spent today by collaborating physician/nurse practitioner. .
[2018-03-11 20:06] VITALS: RESP 16
[2018-03-11] MEDS: Mirtazapine 15 MG Tablet PO SCH (21:02)
[2018-03-12] MEDS: Sod Chloride 0.9% Inj 1,000 ML IV.CONT SCH (03:12)
[2018-03-12] MEDS: Senna/Docusate Sodium 8.6/50 MG Tablet PO SCH ×2 (03:16→08:24)
[2018-03-12 04:48] VITALS: O2SAT 96
[2018-03-12] MEDS: Heparin - SQ 10,000 UNITS/ML Vial SQ SCH (08:24)
[2018-03-12] MEDS: amLODIPine 5 MG Tablet PO SCH (08:24)
--- NOTE | 2018-03-12 08:48 | P.PNIM ---
Subjective Interval history: Patient seen lying quietly in bed. Doing well with no complaints. Nursing reports no adverse events. Ready to go to rehab. Physical Exam Vital signs: Last Vital Signs Temp 98.0 F 03/12/18 07:25 Pulse 64 03/12/18 07:25 Resp 16 03/12/18 07:25 BP 152/70 H 03/12/18 07:25 Pulse Ox 96 03/12/18 07:25 Intake & Output 03/10/18 03/11/18 03/12/18 03/13/18 06:59 06:59 06:59 06:59 Intake Total 2900 / 2900 1100 / 1100 2780 / 2780 Output Total 820 / 820 600 / 600 Balance 2080 / 2080 1100 / 1100 2180 / 2180 Weight 53.4 kg Narrative: GENERAL: Well-nourished, well-developed adult female in no obvious distress. SKIN: Warm and dry. HEAD: Atraumatic. Normocephalic. CARDIOVASCULAR: Regular rate and rhythm. RESPIRATORY: No accessory muscle use. Clear to auscultation. Breath sounds equal bilaterally. GASTROINTESTINAL: Abdomen soft, non-tender, non-distended. Positive bowel sounds. MUSCULOSKELETAL: Extremities without clubbing, cyanosis, or edema. No obvious deformities. NEUROLOGICAL: Awake and alert. No obvious cranial nerve deficits. Motor grossly within normal limits. Normal speech. Results Labs CBC & Chem 7: 03/10/18 11:53 03/10/18 10:09 Labs: Microbiology 03/09/18 13:21 Blood - Peripheral Aerobic Blood Culture - Preliminary No growth in 2 days 03/09/18 13:21 Blood - Peripheral Anaerobic Blood Culture - Preliminary No growth in 2 days 03/09/18 13:26 Blood - Peripheral Aerobic Blood Culture - Preliminary No growth in 2 days 03/09/18 13:26 Blood - Peripheral Anaerobic Blood Culture - Preliminary No growth in 2 days 03/07/18 17:30 Blood - Peripheral Aerobic Blood Culture - Preliminary gram negative rods pleomorphic gram positive rods 03/07/18 17:30 Blood - Peripheral Anaerobic Blood Culture - Preliminary No growth in 4 days 03/07/18 17:35 Blood - Peripheral Aerobic Blood Culture - Preliminary 03/07/18 17:35 Blood - Peripheral Anaerobic Blood Culture - Preliminary No growth in 4 days Assessment and Plan Plan 87-year-old female with a past medical history significant for hypertension, hyperlipidemia, history of AAA status post repair in 2016, arthritis, history of TIA and dysphasia presents to the emergency department after being dropped off by her daughter's boyfriend. Per ED notes, the patient's daughter's ex- boyfriend dropped her off saying that he can no longer take care of her and then he has to go to work. Apparently, the daughter dropped patient off at the ex-boyfriend's house. The location of the daughter is not known. Reportedly DCF is involved. UTI: UA with mod leuks, 101 WBCs, many bacteria. +Leukocytosis with WBC 19K. Lactic acid 1.3. -continue on IV Rocephin; will discharge on ceftin -give IVF hydration -Urine culture with E. coli; monitor sensitivity Questionable bacteremia: 2/4 blood cultures with gram-positive organism -Repeat blood cultures ordered; no significant growth to date -Consulted ID. Discussed with Dr. Cortez, will hold off on further antibiotics at this time and monitor repeat blood cultures Failure to Thrive/Neglect, Inability to Care for Self, Difficulty with ADLs: patient has been wheelchair bound for over 6 months, now appears to be abandoned by her daughter. -consult speech therapy for swallow eval, recommends mechanical soft with thin liquids -consult dietitian, appreciate assistance -add Ensure to meals -monitor Is&Os -consult PT/OT, recommending rehab -consult palliative care, appreciate assistance. Added Remeron as suggested for both depression and appetite. -case management consulted to assist with discharge planning, DCF involved Accelerated Hypertension: Elevated BPs including 199/113, 202/83 -unclear if patient is on any antihypertensives as home -started Norvasc 5mg daily -hydralazine 10mg q6h prn -monitor BP, adjust antihypertensives as needed Hx of TIA/CVA: chronic -Head CT shows diffuse small vessel ischemic changes, old lacunar infarcts -started patient on baby aspirin daily for stroke prevention -checked lipid panel, Cholesterol 132, LDL 83, will recommend diet control for now Dehydration/ELI: Cr elevated at 1.15, previously Cr 0.9. Patient initially dry on exam. -give IVF hydration -avoid nephrotoxins -repeat BMP improved with Cr 0.73 -monitor Is&Os DVT Prophylaxis: heparin sq
--- NOTE | 2018-03-12 08:52 | P.DS ---
DS: Providers Date of admission: 03/07/18 19:03 Primary care physician: UNKNOWN Consults: 03/07/18 19:28 HUB Only Consult Order Routine Consulting Provider: Vandana Ross 03/08/18 12:32 Consult to Palliative Care Routine Consulting Provider: Maryellen Cutler Reason for Consultation: failure to thrive, wheelchair bound [id number], assist with goals of care and correction planning Notified:: Service Spoke with:: PATEL Date Notified:: 03/08/18 Time Notified:: 12:58 Ordering Provider: PARVIN 03/08/18 15:11 HUB Only Consult Order Routine Consulting Provider: Jared Rajput,Agency 03/09/18 08:53 HUB Only Consult Order Routine Consulting Provider: [facility],Agency 03/09/18 11:44 Consult to Infectious Diseases Routine Consulting Provider: Tangela Cortez Reason for Consultation: positive blood culture Notified:: Service Spoke with:: MAXIMO Date Notified:: 03/09/18 Time Notified:: 12:48 Ordering Provider: PARVIN 03/10/18 11:38 HUB Only Consult Order Routine Consulting Provider: Vandana Ross 03/11/18 09:10 HUB Only Consult Order Routine Consulting Provider: Veronique Connell,Agency 03/11/18 09:11 HUB Only Consult Order Routine Consulting Provider: [facility] ,Agency 03/11/18 09:12 HUB Only Consult Order Routine Consulting Provider: [facility],Agency 03/11/18 09:13 HUB Only Consult Order Routine Consulting Provider: [facility],[place] HUB Only Consult Order Routine Consulting Provider: [facility],[place] Brief History from admission: 87-year-old female with a past medical history significant for hypertension, hyperlipidemia, history of AAA status post repair in 2016, arthritis, history of TIA and dysphasia presents to the emergency department after being dropped off by her daughter's boyfriend. Per ED notes, the patient's daughter's ex- boyfriend dropped her off saying that he can no longer take care of her and then he has to go to work. Apparently, the daughter dropped patient off at the ex-boyfriend's house. The location of the daughter is not known by the patient. On arrival, the patient was wearing a diaper and caked in dry feces. She reports that she had some leg pain today during our interview however according to ED documentation she endorses some abdominal pain and anorexia. The patient knows that it is 2018 but gets confused as to whether she is in [place] or [place]. She denies recently falling. States she usually ambulates with a walker however arrived with a wheelchair. She does not know if she has been to the doctor in the last 20 years. She denies any pain. Review of systems limited by mental status. DS: Summary 87-year-old female with a past medical history significant for hypertension, hyperlipidemia, history of AAA status post repair in 2016, arthritis, history of TIA and dysphasia presents to the emergency department after being dropped off by her daughter's boyfriend. UTI: UA with mod leuks, 101 WBCs, many bacteria. +Leukocytosis with WBC 19K. Lactic acid 1.3. Improved. -continue on IV Rocephin; will discharge on ceftin -give IVF hydration -Urine culture with E. coli; sensitivity confirmed Questionable bacteremia: 2/4 blood cultures with gram-positive organism; bacteremia ruled out -Repeat blood cultures ordered; no significant growth to date -Consulted ID. Discussed with Dr. Cortez, will hold off on further antibiotics at this time. Failure to Thrive/Neglect, Inability to Care for Self, Difficulty with ADLs: patient has been wheelchair bound for over 6 months, now appears to be abandoned by her daughter. -consult speech therapy for swallow eval, recommends mechanical soft with thin liquids -consult dietitian, appreciate assistance -add Ensure to meals -monitor Is&Os -consult PT/OT, recommending rehab -consult palliative care, appreciate assistance. Added Remeron as suggested for both depression and appetite. -case management consulted to assist with discharge planning, DCF involved Accelerated Hypertension: Elevated BPs including 199/113, 202/83 -unclear if patient is on any antihypertensives as home -started Norvasc 5mg daily -hydralazine 10mg q6h prn -monitor BP, adjust antihypertensives as needed; significantly improved Hx of TIA/CVA: chronic; stable -Head CT shows diffuse small vessel ischemic changes, old lacunar infarcts -started patient on baby aspirin daily for stroke prevention -checked lipid panel, Cholesterol 132, LDL 83, will recommend diet control for now Dehydration/ELI: Cr elevated at 1.15, previously Cr 0.9. Patient initially dry on exam. Resolved -give IVF hydration -avoid nephrotoxins -repeat BMP improved with Cr 0.73 -monitor Is&Os Time Spent with Patient Total time spent providing and/or coordinating discharge services: < 30 min Exam Narrative Exam Narrative: GENERAL: Well-nourished, well-developed adult female in no obvious distress. SKIN: Warm and dry. HEAD: Atraumatic. Normocephalic. CARDIOVASCULAR: Regular rate and rhythm. RESPIRATORY: No accessory muscle use. Clear to auscultation. Breath sounds equal bilaterally. GASTROINTESTINAL: Abdomen soft, non-tender, non-distended. Positive bowel sounds. MUSCULOSKELETAL: Extremities without clubbing, cyanosis, or edema. No obvious deformities. NEUROLOGICAL: Awake and alert. No obvious cranial nerve deficits. Motor grossly within normal limits. Normal speech. Results Labs on day of discharge: Preliminary micro results at discharge 03/09/18 13:21 Aerobic Blood Culture - Preliminary Blood - Peripheral No growth in 2 days Anaerobic Blood Culture - Preliminary No growth in 2 days 03/09/18 13:26 Aerobic Blood Culture - Preliminary Blood - Peripheral No growth in 2 days Anaerobic Blood Culture - Preliminary No growth in 2 days 03/07/18 17:30 Aerobic Blood Culture - Preliminary Blood - Peripheral gram negative rods pleomorphic gram positive rods Anaerobic Blood Culture - Preliminary No growth in 4 days 03/07/18 17:35 Aerobic Blood Culture - Preliminary Blood - Peripheral Anaerobic Blood Culture - Preliminary No growth in 4 days Impressions ITS Impressions Abdomen/Pelvis CT 03/07/18 16:54 CONCLUSION: 1. Small pericardial effusion. 2. Cardiomegaly. 3. Distal thoracic aortic aneurysm which is stable compared to the previous examination and measures 3.7 cm in greatest dimension and contains eccentric mural thrombus. 4. Cholelithiasis. 5. Uncomplicated colonic diverticulosis. 6. Tiny bilateral subcentimeter renal cysts. 7. Degenerative changes and scoliosis of the thoracolumbar spine. Chest X-Ray 03/07/18 17:27 CONCLUSION: 1. No acute abnormality or significant interval change. Head CT 03/07/18 19:17 CONCLUSION: 1. Diffuse cerebral atrophy. 2. Periventricular and subcortical white matter small vessel ischemic changes. 3. Old lacunar infarcts are noted within the bilateral basal ganglia and kimbrough radiata. 4. Bilateral pontine ischemic changes are noted. 5. Stable calcified meningioma within the anterior falx measuring 10 mm. 6. No acute infarct, acute hemorrhage, midline shift or extra-axial fluid collections. . Discharge Plan Discharge Disposition Patient Disposition: Discharge to SNF Discharge Condition Condition: Stable Discharge Order Discharge Orders: Discharge Order (Routine); Ordered 03/12/18 Ordered By: Lynne Graf ED Use Only Admit Order (Routine); Ordered 03/07/18 Ordered By: Natanael Barton Discharge Details Anticipated Discharge Date: 03/12/18 Diagnosis: UTI (urinary tract infection), Dehydration, Leukocytosis Physicians Team ED Provider: Soto Thomas ED Midlevel Provider: Natanael Barton Primary Care Provider: UNKNOWN, Attending Provider: Jose Miguel Lau Other Providers: Vandana Ross ; Maryellen Cutler ; [facility],Agency ; [facility],Agency ; Tangela Cortez ; [facility] ; [facility],Agency ; [facility],Agency ; [facility]ency ; [facility],Agency Rxs /Orders / Referrals /Forms Prescriptions: New hydralazine 10 mg Tablet 10 mg PO Q8H PRN (Reason: Sbp>160, Dbp>90) Qty: 30 RF: 0 sennosides-docusate sodium [Senna Plus] 8.6-50 mg Tablet 1 tab PO BID Qty: 30 RF: 0 amlodipine [Norvasc] 5 mg Tablet 5 mg PO DAILY Qty: 30 RF: 0 mirtazapine 15 mg Tablet 15 mg PO HS Qty: 30 RF: 0 cefuroxime axetil 250 mg tablet 250 mg PO BID 7 Days Qty: 14 RF: 0 No Action No Known Home Medications RF: 0 Referrals: UNKNOWN, [Primary Care Provider] - See Instructions Discharge Interventions Interventions: Discharge Planning - Case Management Last Done: 03/11/18 09:23 Status ED Status: Left Department
[2018-03-12 12:07] VITALS: BP 119/59; PULSE 67; TEMP 97.7
--- NOTE | 2018-03-12 14:14 | P.PNWCN ---
Wound Care Nurse Consult Description: Received Pressure ulcer consult fro sacral area from Keely KENYON. Communicated with: ZURDO Pineda CDU and Lynne Graf APRN. Recommendation: 1.Please apply fecal management device. 2.Once Fecal management system is place. Cleanse wound to coccyx area with normal saline only and pat dry. 3. Apply Santyl zack thickness to wound bed. 4. Apply Skin barrier film to periwound. 5.Cover wound with Xeroform cut to fit wound bed 6. Then cover wound with bordered gauze. 7. Change dressing daily. 8. Please turn and reposition patient every 2 hours from L side to R side. Limiting time spent on back to P.T. and meals. 9.Use ultra sorb pad under patient for moisture management. Do not use cotton under pads. 10. Limit use of layers under patient. Wound/Pressure Injury - Wound Coccyx Wound Staging: Unstageable Wound Assessment: Ongoing Wound Type: Pressure Injury Is This a Chronic Wound: No Requested from Provider a Wound Care Consult: Yes (Patient was seen today by inpatient wound care nurse.) Length (cm): 1.4 Width (cm): 0.8 Depth (cm): 0.3 Wound Bed Appearance: [place], Yellow Wound Bed Appearance: Wound bed presents with ~50% yellow firmly adherent slough and ~50% pink tissue Surrounding Tissue Appearance: Blanched/Dull, [place] Surrounding Tissue Temperature: Cool Drainage Description: Serosanguinous Drainage Amount: Scant Drainage Odor: No Odor Dressing Status: Changed Cleansing Solution: Saline Cover Dressing: Bordered gauze Wound Dressing Change Date: 03/12/18 Wound Margin Description: Wound margins are well defined and open. - Additional Information Patient seen in H pod for evaluation of wound to sacral area. Patient has brief in place. Patient was turned with maximum assistance of newspaper writer toward the L side. Removed Brief to reveal large amount of loose brown stool. Patient was cleansed of stool with soap, water and wash cloths. Wound is noted over the coccyx area. Wound bed presents with ~50% yellow adherent slough and ~50% pink tissue. Wound margins are open and well defined. Wound drainage is scant and sero-sanguinous without odor. Periwound is unremarkable. Wound was cleansed with normal saline and patted dry.Then applied skin barrier film (skin prep). Applied bordered gauze over wound. Full wound description, measurements and wound care recommendations are noted above.
== END 2018-03-12 15:35 ==
LOC: NEDA 16:03 → NEPE 16:03 → NEPHCDU 21:15
PROVIDERS: ADMIT Internal Medicine; ATTEND Internal Medicine
CPT/HCPCS: 70450; 71010; 71045; 74177; 80048; 80053; 80061; 81001; 82040; 82550; 83605; 83690; 83735; 85025; 87040; 87077; 87086; 87186; 87205; 90761; 92526; 92610; 93306; 96361; 96365; 96366; 97161; 97166; 97530; 99285; G0195; G0378; G8987; G8988; G8996; G8997; G8998; J0696; J1644; J7030; J7040; Q9967